=== PATIENT | female | born 1940 | race American Indian/Alaskan Native ===

== ENCOUNTER 2016-11-28 14:58 | Outpatient (CLI) | payer MEDICARE, OTHER ==
--- NOTE | 2016-11-29 10:50 | XRay Report ---
LEFT HAND RADIOGRAPHS: INDICATION: Left hand pain. No known injury. On and off swelling to first digit. COMPARISON: None similar. FINDINGS: AP, lateral and oblique left hand radiographs demonstrate intact first metacarpal and overlying soft tissues, indicated symptomatic. However, moderate first MCP joint degenerative changes with joint space narrowing, slight adjacent sclerosis with few subchondral cysts and possible subluxation noted. Osteopenia/osteoporosis. Few other interphalangeal degenerative changes, greatest at the second DIP joint with narrowing and overhanging osteophytes with overlying soft tissue swelling/prominence also seen. Normal remainder bony articulation and appearance. Extrinsic ornament artifact overlies the distal forearm bones. CONCLUSION: No acute radiographic abnormality with osteoarthritic changes noted predominantly at the first MCP and second DIP joints, as detailed above. Please correlate. Thank you for the opportunity to participate in this patient's care.
== END 2016-11-28 14:59 | disposition home or self-care (01) ==
LOC: XRAY 14:58
PROVIDERS: ATTEND Internal Medicine
DX: M81.0 Age-related osteoporosis without current pathological fracture (principal); M85.842 Other specified disorders of bone density and structure, left hand; M25.742 Osteophyte, left hand

== ENCOUNTER 2018-02-24 09:25 | Outpatient (CLI) | payer MEDICARE, OTHER ==
--- NOTE | 2018-02-24 11:11 | Cat Scan Report ---
CT CHEST WITHOUT CONTRAST: HISTORY: Right upper lobe infiltrate. COMPARISON: 01/27/17. TECHNIQUE: Helical CT in 1.25mm intervals without IV contrast. Sagittal and coronal reformatted images. FINDINGS: Thyroid gland: Normal. Tracheobronchial tree: Normal. Esophagus: Normal. Heart: Normal. Pericardium: Normal. Mediastinum: No mediastinal mass or adenopathy. Lung Garcia: There are mild chronic interstitial changes in both lungs but no evidence for pneumonia. No mass or nodule. There is mild air trapping in the upper lung zones which might represent mild COPD. Pleural Spaces: Normal. Musculoskeletal: Normal. IMPRESSION: Mild chronic interstitial changes in both lungs. No evidence for infiltrate..
== END 2018-02-24 09:26 | disposition home or self-care (01) ==
LOC: CT 09:25
PROVIDERS: ATTEND Internal Medicine
DX: R91.8 Other nonspecific abnormal finding of lung field (principal)
CPT/HCPCS: 71250

== ENCOUNTER 2018-03-18 06:20 | Day surgery (SDC) | payer MEDICARE, OTHER ==
[2018-03-18] MEDS ORDERED: ECOTRIN PO ONE (06:56)
[2018-03-18] MEDS ORDERED: NACL 0.9% 500 ML 500 ML IV SCH (07:00)
[2018-03-18 07:39] LABS: Basophils % (Auto) 0.9 % (0.0-1.8); Eosinophils # (Auto) 0.2 K/mm3 (0.0-0.4); Hematocrit 33.3 % (30.3-42.9); Hemoglobin 11.1 gm/dl (10.1-14.3); Mean Corpuscular HGB Conc 33 % (30-34); Mean Corpuscular Hemoglobin 32 pg (28-32); Mean Corpuscular Volume 95 fl (79-97); Monocytes # (Auto) 0.5 K/mm3 (0.0-0.8); Monocytes % (Auto) 11.3 % (0.0-7.3); Platelet Count 214 K/mm3 (140-440); Red Cell Distribution Width 14.3 % (13.2-15.2)
[2018-03-18 07:48] LABS: INR 0.95 (0.87-1.13)
[2018-03-18] MEDS ORDERED: HEPARIN 10,000 UNITS/10 ML ONE (08:17)
[2018-03-18] MEDS ORDERED: HEPARIN/NS 5000 UNIT/500ML(CATH LAB) 1,000 ML IR ONE (08:17)
[2018-03-18 08:20] LABS: BUN/Creatinine Ratio 11; Blood Urea Nitrogen 8 mg/dL (7-17); Calcium 8.3 mg/dL (8.4-10.2); Hemolysis Index 4
[2018-03-18] MEDS ORDERED: K-DUR PO ONE (08:25)
[2018-03-18] MEDS ORDERED: K-DUR PO NR (08:29)
[2018-03-18] MEDS: VERSED ONE ×2 (08:52→09:04)
[2018-03-18] MEDS: SUBLIMAZE ONE ×2 (08:52→09:04)
[2018-03-18] MEDS: XYLOCAINE 2% INFILTRATI ONE ×2 (08:52→09:05)
--- NOTE | 2018-03-18 09:37 | Short Stay Summary ---
Short Stay Documentation Date of service: 03/18/18 - History H&P: obtained from office - Allergies and Medications Current Medications: Allergies codeine phosphate [From Tylenol-Codeine #3] Allergy (Verified 11/14/14 07:59) Nausea Home Medications Medication Instructions Recorded Confirmed Last Taken Type Diazepam 5 mg PO DAILY PRN 11/14/14 03/18/18 03/16/18 History Oxycodone HCl/Acetaminophen 1 each PO Q6HR PRN 11/14/14 03/18/18 03/16/18 History [Percocet 10/325 mg] PARoxetine CR (NF) [Paxil (Nf)] 25 mg PO QAM 11/14/14 03/18/18 03/17/18 History Vit D3 & K/Berberine HCl/Hops 1 tab PO DAILY 10/02/16 03/18/18 03/17/18 History Vit E AC/Vit K1/Safflower Oil 1 tab PO DAILY 10/02/16 03/18/18 03/17/18 History Acetaminophen [Tylenol Extra 500 mg PO DAILY PRN 03/18/18 03/18/18 03/17/18 History Strength] Furosemide [Lasix TAB] 20 mg PO DAILY 03/18/18 03/18/18 1 Month Ago History ~02/15/18 Macitentan (Nf) [Opsumit (Nf)] 10 mg PO DAILY 03/18/18 03/18/18 03/17/18 History Active Medications Sodium Chloride (Nacl 0.9% 500 Ml) 500 mls @ 50 mls/hr IV DIRECT JAKE Stop: 03/18/18 16:59 Last Admin: 03/18/18 08:06 Dose: 50 mls/hr - Physical exam General appearance: no acute distress Integumentary: no rash HEENT: Atraumatic Lungs: Clear to auscultation Breasts: deferred Heart: Regular rate Gastrointestinal: normal Female Genitourinary: deferred Rectal Exam: deferred Extremities: no ischemia Neurological: Normal gait - Brief post op/procedure progress note Date of procedure: 03/18/18 Pre-op diagnosis: Shortness of breath, pulmonary hypertension Post-op diagnosis: same Procedure: RHC Anesthesia: MAC Findings: See report Surgeon: MALICK FRIAS Estimated blood loss: none Pathology: none Condition: stable - Hospital course Hospital course: Uneventful - Disposition Condition at discharge: Good Disposition: DC-01 TO HOME OR SELFCARE Short Stay Discharge Plan Activity: advance as tolerated, no driving until cleared by PCP (foe 24 hours) Weight Bearing Status: Non-Weight Bearing (for 2 days) Diet: low fat, low cholesterol, low salt Wound: keep clean and dry Follow up with: ABDIAS DAVIS MD [Primary Care Provider] - 7 Days Prescriptions: Furosemide [Lasix TAB] 20 mg PO Q12H #60 tablet Potassium Chloride [Klor-Con 10] 10 meq PO DAILY 3 Days #30 tablet.er
--- NOTE | 2018-03-18 09:53 | Cardiac Catherization Report ---
INDICATION: Worsening shortness of breath. ORDERING PHYSICIAN: Mikael Oliveira MD PROCEDURE PERFORMED: Right heart catheterization with hemodynamic measurement and oxygen saturation run. DESCRIPTION OF PROCEDURE: 1.After obtaining the consent, the patient was draped using sterile technique. 2.A 2% lidocaine was injected into the right groin. 3.Using micropuncture technique an 8-Sudanese vascular sheath was inserted into the right common femoral vein. 4.A 7-1/2-Sudanese [place]-Jcarlos catheter was used to measure right-sided hemodynamics and performed oxygen saturation run. 5.No complications occurred during the procedure. 6.Hemostasis was achieved at the end of the procedure using manual pressure. SPECIMEN REMOVED: None. ESTIMATED BLOOD LOSS: Minimal. FINDINGS: HEMODYNAMICS: 1. Mean pulmonary capillary wedge pressure was 21 mmHg. 2. Mean pulmonary artery pressure was 35 mmHg. The pulmonary artery systolic pressure was 53 mmHg and the pulmonary end-diastolic pressure was 24 mmHg. 3. The right ventricular systolic pressure was 67 mmHg and the right ventricular end-diastolic pressure was 19 mmHg. 4. The mean right arterial pressure was 15 mmHg. 5. The Jayesh cardiac output was 4.41 L per minute. 6. The Jayesh cardiac index is 2.67 liters per minute per meter squared. 7. The calculated transpulmonary gradient is 14 mmHg. 8. The calculated pulmonary vascular resistance is 3.17 [place] units. 9. The PA saturation was 60%. 10. The right ventricular saturation was 61%. 11. The right atrial saturation was 62%. 12. The aortic saturation was 95%. 13. The pulmonary artery saturation was 60%. IMPRESSION: 1. Moderate pulmonary hypertension. The mean PA pressure is 35 mmHg. This is slightly improved from the previous mean PA pressure of 37 mmHg measured in 09/2016. 2. The transpulmonary gradient is 14 mmHg with a pulmonary vascular resistance of 3.17 [place] units. This compared to a transpulmonary gradient of 27 mmHg and the pulmonary vascular resistance of 8.6 [place] units back in 09/2016. There is evidence of elevated left and right-sided filling pressures suggesting fluid overload. 3. There is evidence of normal cardiac output with improved in the cardiac index from 1.9-2.67 liters per minute per meter square. RECOMMENDATIONS: 1.Continue current management. 2.Intensify diuresis. 3.Overall, the pulmonary pressures look improved compared to the study performed in 09/2016. JOB# [id number] WESLEY/RIZWAN
[2018-03-18 11:31] VITALS: BP 127/61
== END 2018-03-18 12:00 | disposition home or self-care (01) ==
LOC: CATHLABREC 06:20
PROVIDERS: ATTEND Internal Medicine
DX: I27.20 Pulmonary hypertension, unspecified (principal); J43.9 Emphysema, unspecified; M19.90 Unspecified osteoarthritis, unspecified site; I25.10 Atherosclerotic heart disease of native coronary artery without angina pectoris; I10 Essential (primary) hypertension; K21.9 Gastro-esophageal reflux disease without esophagitis; Z90.710 Acquired absence of both cervix and uterus; Z79.899 Other long term (current) drug therapy
CPT/HCPCS: 36415; 80048; 85025; 85610; 93005; 93010; 93451; 99152; J1644; J2250; J3010; J7040

== ENCOUNTER 2018-04-13 11:08 | Outpatient (CLI) | payer MEDICARE, OTHER ==
--- NOTE | 2018-04-13 15:20 | XRay Report ---
Thoracic spine: Pain. The vertebral height, alignment, and interspaces appear generally preserved. The bones are relatively well-mineralized for stated age. No swelling noted. Impression: Unremarkable exam for stated age.
== END 2018-04-13 11:09 | disposition home or self-care (01) ==
LOC: XRAY 11:08
PROVIDERS: ATTEND Physical Medicine & Rehabilitation
DX: M54.6 Pain in thoracic spine (principal); J43.9 Emphysema, unspecified; K21.9 Gastro-esophageal reflux disease without esophagitis; Z87.891 Personal history of nicotine dependence
CPT/HCPCS: 72070

== ENCOUNTER 2019-05-05 09:58 | Inpatient (IN) | payer MEDICARE, OTHER ==
[2019-05-05] MEDS ORDERED: DUONEB *Not for PRN Use IH ONE (10:30)
[2019-05-05] MEDS ORDERED: LEVAQUIN 750MG/150ML 750 MG/150 ML BAG IV ONE (10:30)
[2019-05-05] MEDS ORDERED: NACL 0.9% 1000 ML IV ONE (10:38)
--- NOTE | 2019-05-05 10:44 | Emergency Department Report ---
ED General Adult HPI - General Chief complaint: Dyspnea/Respdistress Stated complaint: RESPIRATORY DISTRESS Time Seen by Provider: 05/05/19 10:15 Source: patient, EMS Mode of arrival: Stretcher Limitations: No Limitations - History of Present Illness Initial comments: The patient presents to the ED for a cough and fever x 3 days. The patient has a H/O COPD and is on home O2 at 2L via ncl. The patient denies Chest or abdominal pain. The patient complains of difficulty breathing when lying flat. -: Gradual Severity scale (0 -10): 0 Improves with: none Worsens with: none Associated Symptoms: denies other symptoms Treatments Prior to Arrival: none - Related Data Home Medications Medication Instructions Recorded Confirmed Last Taken Macitentan (Nf) [Opsumit (Nf)] 10 mg PO DAILY 03/18/18 05/05/19 05/05/19 PARoxetine CR (NF) [Paxil (Nf)] 25 mg PO QAM 01/06/19 05/05/19 05/05/19 Allergies Allergy/AdvReac Type Severity Reaction Status Date / Time codeine phosphate Allergy Nausea Verified 11/14/14 07:59 [From Tylenol-Codeine #3] ED Review of Systems ROS: Stated complaint: RESPIRATORY DISTRESS Other details as noted in HPI Constitutional: denies: chills, fever Eyes: denies: eye pain, eye discharge, vision change ENT: denies: ear pain, throat pain Respiratory: cough. denies: shortness of breath, wheezing Cardiovascular: denies: chest pain, palpitations Endocrine: no symptoms reported Gastrointestinal: denies: abdominal pain, nausea, diarrhea Genitourinary: denies: urgency, dysuria, discharge Musculoskeletal: denies: back pain, joint swelling, arthralgia Skin: denies: rash, lesions Neurological: denies: headache, weakness, paresthesias Psychiatric: denies: anxiety, depression Hematological/Lymphatic: denies: easy bleeding, easy bruising ED Past Medical Hx - Past Medical History Previous Medical History?: Yes Hx Hypertension: Yes Hx GERD: Yes Hx Arthritis: Yes Hx COPD: Yes (Home O2 @ 2 L) Additional medical history: aniexty,chronic pain - Surgical History Past Surgical History?: Yes Additional Surgical History: partial hysterectom - Social History Smoking Status: Former Smoker Substance Use Type: None - Medications Home Medications: Home Medications Medication Instructions Recorded Confirmed Last Taken Type Macitentan (Nf) [Opsumit (Nf)] 10 mg PO DAILY 03/18/18 05/05/19 05/05/19 History PARoxetine CR (NF) [Paxil (Nf)] 25 mg PO QAM 01/06/19 05/05/19 05/05/19 History ED Physical Exam - General Limitations: No Limitations General appearance: alert, in no apparent distress - Head Head exam: Present: atraumatic, normocephalic - Eye Eye exam: Present: normal appearance - ENT ENT exam: Present: mucous membranes moist - Neck Neck exam: Present: normal inspection - Respiratory Respiratory exam: Present: normal lung sounds bilaterally, wheezes, rales. Absent: respiratory distress - Cardiovascular Cardiovascular Exam: Present: regular rate, normal rhythm. Absent: systolic murmur, diastolic murmur, rubs, gallop - GI/Abdominal GI/Abdominal exam: Present: soft, normal bowel sounds. Absent: distended, tenderness - Extremities Exam Extremities exam: Present: normal inspection - Back Exam Back exam: Present: normal inspection - Neurological Exam Neurological exam: Present: alert, oriented X3, CN II-XII intact. Absent: motor sensory deficit - Psychiatric Psychiatric exam: Present: normal affect, normal mood - Skin Skin exam: Present: warm, dry, intact, normal color. Absent: rash ED Course Vital Signs 05/05/19 05/05/19 05/05/19 10:15 10:47 10:54 Temperature 98.9 F Pulse Rate 71 Pulse Rate [ 92 H 885 H Anterior Bilateral] Respiratory 20 Rate Respiratory 13 26 H Rate [Anterior Bilateral] Blood Pressure 130/82 Blood Pressure [Left] O2 Sat by Pulse 98 Oximetry 05/05/19 12:42 Temperature Pulse Rate 98 H Pulse Rate [ Anterior Bilateral] Respiratory 16 Rate Respiratory Rate [Anterior Bilateral] Blood Pressure Blood Pressure 138/69 [Left] O2 Sat by Pulse 98 Oximetry ED Medical Decision Making - Lab Data Result diagrams: 05/05/19 11:10 05/05/19 11:10 Lab Results 05/05/19 05/05/19 05/05/19 Range/Units 11:00 11:10 11:10 WBC (4.5-11.0) K/mm3 RBC (3.65-5.03) M/mm3 Hgb (10.1-14.3) gm/dl Hct (30.3-42.9) % MCV (79-97) fl MCH (28-32) pg MCHC (30-34) % RDW (13.2-15.2) % Plt Count (140-440) K/mm3 Lymph % (Auto) (13.4-35.0) % Morrison % (Auto) (0.0-7.3) % Eos % (Auto) (0.0-4.3) % Baso % (Auto) (0.0-1.8) % Lymph # (1.2-5.4) K/mm3 Morrison # (0.0-0.8) K/mm3 Eos # (0.0-0.4) K/mm3 Baso # (0.0-0.1) K/mm3 Seg Neutrophils % (40.0-70.0) % Seg Neutrophils # (1.8-7.7) K/mm3 APTT (24.2-36.6) Sec. POC ABG pH 7.454 H (7.35-7.45) POC ABG pCO2 36.0 (35-45) POC ABG pO2 66 L (80-105) POC ABG HCO3 25.2 (22-26 mml/L) POC ABG Total CO2 26 (23-27mmol/L) POC ABG O2 Sat 94 POC ABG Base Excess 1 ((-2) - (+3)mmol/L) FiO2 28 % Sodium 141 (137-145) mmol/L Potassium 3.4 L (3.6-5.0) mmol/L Chloride 102.9 (98-107) mmol/L Carbon Dioxide 26 (22-30) mmol/L Anion Gap 16 mmol/L BUN 8 (7-17) mg/dL Creatinine 1.1 (0.7-1.2) mg/dL Estimated GFR 58 ml/min BUN/Creatinine Ratio 7 % Glucose 97 (65-100) mg/dL Lactic Acid 1.90 (0.7-2.0) mmol/L Calcium 8.0 L (8.4-10.2) mg/dL Total Bilirubin 0.60 (0.1-1.2) mg/dL AST 28 (5-40) units/L ALT 12 (7-56) units/L Alkaline Phosphatase 55 (35-129) units/L NT-Pro-B Natriuret Pep (0-900) pg/mL Total Protein 6.8 (6.3-8.2) g/dL Albumin 3.5 L (3.9-5) g/dL Albumin/Globulin Ratio 1.1 % 05/05/19 05/05/19 05/05/19 Range/Units 11:10 11:10 11:10 WBC 5.3 (4.5-11.0) K/mm3 RBC 3.53 L (3.65-5.03) M/mm3 Hgb 11.2 (10.1-14.3) gm/dl Hct 33.1 (30.3-42.9) % MCV 94 (79-97) fl MCH 32 (28-32) pg MCHC 34 (30-34) % RDW 15.0 (13.2-15.2) % Plt Count 170 (140-440) K/mm3 Lymph % (Auto) 21.5 (13.4-35.0) % Morrison % (Auto) 15.5 H (0.0-7.3) % Eos % (Auto) 3.2 (0.0-4.3) % Baso % (Auto) 0.7 (0.0-1.8) % Lymph # 1.1 L (1.2-5.4) K/mm3 Morrison # 0.8 (0.0-0.8) K/mm3 Eos # 0.2 (0.0-0.4) K/mm3 Baso # 0.0 (0.0-0.1) K/mm3 Seg Neutrophils % 59.1 (40.0-70.0) % Seg Neutrophils # 3.1 (1.8-7.7) K/mm3 APTT 30.3 (24.2-36.6) Sec. POC ABG pH (7.35-7.45) POC ABG pCO2 (35-45) POC ABG pO2 (80-105) POC ABG HCO3 (22-26 mml/L) POC ABG Total CO2 (23-27mmol/L) POC ABG O2 Sat POC ABG Base Excess ((-2) - (+3)mmol/L) FiO2 % Sodium (137-145) mmol/L Potassium (3.6-5.0) mmol/L Chloride (98-107) mmol/L Carbon Dioxide (22-30) mmol/L Anion Gap mmol/L BUN (7-17) mg/dL Creatinine (0.7-1.2) mg/dL Estimated GFR ml/min BUN/Creatinine Ratio % Glucose (65-100) mg/dL Lactic Acid (0.7-2.0) mmol/L Calcium (8.4-10.2) mg/dL Total Bilirubin (0.1-1.2) mg/dL AST (5-40) units/L ALT (7-56) units/L Alkaline Phosphatase (35-129) units/L NT-Pro-B Natriuret Pep 3759 H (0-900) pg/mL Total Protein (6.3-8.2) g/dL Albumin (3.9-5) g/dL Albumin/Globulin Ratio % - EKG Data -: EKG Interpreted by Tn EKG shows normal: sinus rhythm Rate: normal - EKG Data Interpretation: LVH - Radiology Data Radiology results: report reviewed - Medical Decision Making CT of the chest was done due to the wide mediastinum Patient refused a CT scan Patient given 40 mg IV Lasix Patient states that she stopped taking the Lasix is on her own because she did not want to use the bathroom all the time Critical Care Time: Yes Critical care time in (mins) excluding proc time.: 35 Critical care attestation.: If time is entered above; I have spent that time in minutes in the direct care of this critically ill patient, excluding procedure time. ED Disposition Clinical Impression: CHF (congestive heart failure) Disposition: OP ADMIT IP TO THIS HOSP Is pt being admited?: No Does the pt Need Aspirin: No Condition: Fair Referrals: PRIMARY CARE, [Primary Care Provider] - 3-5 Days
--- NOTE | 2019-05-05 10:44 | XRay Report ---
AP CHEST: HISTORY: Dyspnea Mild cardiomegaly and mild pulmonary venous congestion are identified which appear slightly increased since 01/06/19. Trace right pleural effusion is suspected. No evidence for consolidation or pneumothorax. The bony structures are demineralized but grossly intact. Right rotator cuff repair changes are noted. IMPRESSION: Mild CHF.
[2019-05-05 11:25] LABS: Basophils % (Auto) 0.7 % (0.0-1.8); Eosinophils # (Auto) 0.2 K/mm3 (0.0-0.4); Eosinophils % (Auto) 3.2 % (0.0-4.3); Hematocrit 33.1 % (30.3-42.9); Hemoglobin 11.2 gm/dl (10.1-14.3); Lymphocytes # (Auto) 1.1 K/mm3 (1.2-5.4); Lymphocytes % (Auto) 21.5 % (13.4-35.0); Mean Corpuscular HGB Conc 34 % (30-34); Mean Corpuscular Volume 94 fl (79-97); Monocytes # (Auto) 0.8 K/mm3 (0.0-0.8); Monocytes % (Auto) 15.5 % (0.0-7.3); Platelet Count 170 K/mm3 (140-440); Red Blood Count 3.53 M/mm3 (3.65-5.03)
[2019-05-05 11:38] LABS: Albumin 3.5 g/dL (3.9-5)
[2019-05-05] MEDS ORDERED: LASIX IV ONE (13:13)
[2019-05-05] MEDS ORDERED: LASIX ONE (13:14)
--- NOTE | 2019-05-05 14:01 | History and Physical Report ---
History of Present Illness Chief complaint: Im short of breath History of present illness: 78 YO Female with HTN, GERD, OA, COPD, Chronic Respiratory Failure on 2L Home Oxygen via NC presents to ED for evaluation. Pt states that she has experienced shortness of breath and nonproductive cough over the past 3 days. Pt states that his symptoms were not relieved with nebulizer therapy. Pt acknowledges subjective fever, Orthopnea/PND as well as decreased exercise tolerance. EMS notified, and upon arrival the patient was found to be in distress. Pt transported to [facility]. Pt seen and evaluated in ED and found to have symptoms consistent with CHF Decompensation complicated by Acute Hypoxemic Respiratory Failure. Pt admitted to telemetry and initiated on CHF protocol. Cardiology consulted in ED. Pt denies fever, chills, CP, Palpitations, NVD, skin rash, unilateral leg swelling, calf pain, hemoptysis, or recent ill contacts. Past History Past Medical History: arthritis, COPD, GERD, hypertension, other (Chronic Respiratory Failure) Past Surgical History: hysterectomy Social history: . denies: smoking, alcohol abuse, prescription drug abuse Family history: hypertension Medications and Allergies Allergies Allergy/AdvReac Type Severity Reaction Status Date / Time codeine phosphate Allergy Nausea Verified 11/14/14 07:59 [From Tylenol-Codeine #3] Home Medications Medication Instructions Recorded Confirmed Last Taken Type Macitentan (Nf) [Opsumit (Nf)] 10 mg PO DAILY 03/18/18 05/05/19 05/05/19 History PARoxetine CR (NF) [Paxil (Nf)] 25 mg PO QAM 01/06/19 05/05/19 05/05/19 History Review of Systems Constitutional: fever, no weight loss, no weight gain, no chills, no sweats Ears, nose, mouth and throat: no ear pain, no ear discharge, no tinnitis, no decreased hearing, no nose pain, no nasal congestion Breasts: no change in shape, no swelling, no mass Cardiovascular: shortness of breath, dyspnea on exertion, paroxysmal nocturnal dyspnea, decreased exercise tolerance, no chest pain, no orthopnea, no palpitations, no rapid/irregular heart beat, no edema Respiratory: cough, cough with sputum Gastrointestinal: no abdominal pain, no nausea, no vomiting, no diarrhea Genitourinary Female: no pelvic pain, no flank pain, no menorrhagia, no dysuria, no urinary frequency, no urgency Rectal: no pain, no incontinence, no bleeding Musculoskeletal: no neck stiffness, no neck pain, no shooting arm pain, no arm numbness/tingling, no low back pain Integumentary: no rash, no pruritis, no redness, no sores, no wounds, no jaundi ce Neurological: no paralysis, no weakness, no parathesias, no numbness, no tingling Psychiatric: no anxiety, no memory loss, no change in sleep habits, no sleep disturbances, no insomnia, no hypersomnia Endocrine: no cold intolerance, no heat intolerance, no polyphagia, no excessive thirst, no polydipsia, no polyuria Hematologic/Lymphatic: no easy bruising, no easy bleeding, no lymphadenopathy, n o lymphedema Allergic/Immunologic: no urticaria, no allergic rhinitis, no wheezing, no persistent infections, no anaphylaxis Exam - Constitutional Vitals: Temp Pulse Resp BP Pulse Ox 98.9 F 98 H 16 138/69 98 05/05/19 10:15 05/05/19 12:42 05/05/19 12:42 05/05/19 12:42 05/05/19 12:42 General appearance: Present: mild distress - EENT Eyes: Present: PERRL ENT: hearing intact, clear oral mucosa - Neck Neck: Present: supple, normal ROM - Respiratory Respiratory effort: normal Respiratory: bilateral: diminished, rhonchi - Cardiovascular Heart Sounds: Present: S1 & S2. Absent: rub, click - Extremities Extremities: pulses symmetrical, No edema Extremity abnormal: edema Peripheral Pulses: within normal limits - Abdominal General gastrointestinal: Present: soft, non-tender, non-distended, normal bowel sounds Female genitourinary: Present: normal - Integumentary Integumentary: Present: clear, warm, dry - Musculoskeletal Musculoskeletal: gait normal, strength equal bilaterally - Psychiatric Psychiatric: appropriate mood/affect, intact judgment & insight - Neurologic Neurologic: CNII-XII intact, moves all extremities Results - Labs CBC & Chem 7: 05/05/19 11:10 05/05/19 11:10 Labs: Abnormal lab results 05/05/19 05/05/19 05/05/19 Range/Units 11:00 11:10 11:10 RBC 3.53 L (3.65-5.03) M/mm3 Story % (Auto) 15.5 H (0.0-7.3) % Lymph # 1.1 L (1.2-5.4) K/mm3 POC ABG pH 7.454 H (7.35-7.45) POC ABG pO2 66 L (80-105) Potassium 3.4 L (3.6-5.0) mmol/L Calcium 8.0 L (8.4-10.2) mg/dL NT-Pro-B Natriuret Pep (0-900) pg/mL Albumin 3.5 L (3.9-5) g/dL 05/05/19 Range/Units 11:10 RBC (3.65-5.03) M/mm3 Story % (Auto) (0.0-7.3) % Lymph # (1.2-5.4) K/mm3 POC ABG pH (7.35-7.45) POC ABG pO2 (80-105) Potassium (3.6-5.0) mmol/L Calcium (8.4-10.2) mg/dL NT-Pro-B Natriuret Pep 3759 H (0-900) pg/mL Albumin (3.9-5) g/dL Assessment and Plan - Patient Problems (1) CHF (congestive heart failure) Current Visit: Yes Status: Suspected Qualifiers: Heart failure chronicity: acute on chronic Plan to address problem: Admit to telemetry, Echo, cardiology consulted, thyroid panel, magnesium level, chest x ray, strict I/O, daily weight, bnp, monitor uop q shift. (2) Respiratory failure Current Visit: Yes Status: Acute Qualifiers: Chronicity: acute on chronic Plan to address problem: Supplemental oxygen, chest X ray, pulse oximetry, NIPPV as clinically inidicated. (3) Pulmonary hypertension Current Visit: Yes Status: Acute Plan to address problem: Echo, supportive care, continue Opsumit for pulmonary vasodilation, (4) HTN (hypertension) Current Visit: Yes Status: Acute Qualifiers: Hypertension type: essential hypertension Qualified Code(s): I10 - Essential (primary) hypertension Plan to address problem: monitor BP q shift, continue medical management. (5) GERD (gastroesophageal reflux disease) Current Visit: Yes Status: Acute Qualifiers: Esophagitis presence: without esophagitis Qualified Code(s): K21.9 - Gastro-esophageal reflux disease without esophagitis Plan to address problem: PPI therapy, supportive care. (6) Arthritis Current Visit: Yes Status: Acute Plan to address problem: pain control, supportive care. (7) DVT prophylaxis Current Visit: Yes Status: Acute Plan to address problem: SCD to BLE while in bed,
[2019-05-05 14:21] LABS: Bacteria,Urine 1+ /HPF (Negative); Bilirubin,Urine NEG (Negative); Blood,Urine SM (Negative); Color,Urine Colorless (Yellow); Mucus,Urine FEW /HPF; Protein,Urine <15 mg/dL mg/dL (Negative); Urobilinogen,Urine < 2.0 mg/dL (<2.0)
[2019-05-05 14:37] LABS: WBC,Urine < 1.0 /HPF (0.0-6.0)
[2019-05-05] MEDS ORDERED: PROVENTIL IH PRN (15:17)
[2019-05-05] MEDS ORDERED: ZOFRAN IV PRN (15:17)
[2019-05-05] MEDS ORDERED: SODIUM CHLORIDE FLUSH SYRINGE 10 ML IV PRN (15:17)
[2019-05-05 16:35] LABS: Free T4 (Free Thyroxine) 0.85 ng/dL (0.76-1.46)
[2019-05-05] MEDS: LASIX IV SCH (17:50)
[2019-05-05] MEDS: HYDROMET PO PRN (21:54)
[2019-05-05] MEDS: SODIUM CHLORIDE FLUSH SYRINGE 10 ML IV SCH (21:55)
[2019-05-06 06:39] LABS: BUN/Creatinine Ratio 10; Blood Urea Nitrogen 10 mg/dL (7-17); Calcium 8.2 mg/dL (8.4-10.2); Hemolysis Index 14
[2019-05-06] MEDS: LASIX IV SCH (06:44)
[2019-05-06] MEDS: HYDROMET PO PRN ×3 (07:36→21:55)
[2019-05-06] MEDS: SODIUM CHLORIDE FLUSH SYRINGE 10 ML IV SCH ×2 (09:30→21:55)
[2019-05-06] MEDS ORDERED: PAROXETINE 25 MG PO SCH (10:00)
[2019-05-06] MEDS ORDERED: MACITENTAN 10 MG PO SCH (10:00)
--- NOTE | 2019-05-06 11:49 | Consultation ---
History of Present Illness Consult date: 05/06/19 Consult reason: congestive heart failure History of present illness: Patient is a 78-year old woman with chronic lung disease, COPD, on home oxygen therapy. She has had extensive invasive cardiac evaluation, with 3 recent cardiac catheterizations in 2013, 2015 and most recently a right heart catheterization in February 2018. She has been documented with mild obstructive atherosclerosis, normal left ventricle systolic function with ejection fraction 60-65%, and moderate pulmonary hypertension consistent with her COPD. Patient presents to the hospital with cough, shortness of breath and positional chest pain. Chest x-ray reports cardiomegaly with mild interstitial lung disease. EKG was sinus bradycardia, otherwise normal. Cardiac consultation has been requested. Past History Past Medical History: arthritis, COPD, GERD, hypertension, other (Chronic Respiratory Failure) Past Surgical History: hysterectomy Social history: . denies: smoking, alcohol abuse, prescription drug abuse Family history: hypertension Medications and Allergies Allergies Allergy/AdvReac Type Severity Reaction Status Date / Time codeine phosphate Allergy Nausea Verified 11/14/14 07:59 [From Tylenol-Codeine #3] Home Medications Medication Instructions Recorded Confirmed Last Taken Type Macitentan (Nf) [Opsumit (Nf)] 10 mg PO DAILY 03/18/18 05/05/19 05/05/19 History PARoxetine CR (NF) [Paxil (Nf)] 25 mg PO QAM 01/06/19 05/05/19 05/05/19 History Active Meds: Active Medications Acetaminophen (Tylenol) 650 mg PO Q4H PRN PRN Reason: Pain MILD(1-3)/Fever >100.5/MERRITT Albuterol (Proventil) 2.5 mg IH Q4HRT PRN PRN Reason: Shortness Of Breath Furosemide (Lasix) 40 mg IV BID@0600,1800 JAKE Last Admin: 05/06/19 06:44 Dose: 40 mg Documented by: Hydrocodone Bit/Homatropine Methylb (Hydromet) 10 ml PO Q6H PRN PRN Reason: Cough Last Admin: 05/06/19 07:36 Dose: 10 ml Documented by: Miscellaneous Medication (Macitentan (Nf)) 10 mg PO DAILY JAKE Miscellaneous Medication (Paroxetine Cr (Nf)) 25 mg PO QAM [facility] Ondansetron HCl (Zofran) 4 mg IV Q8H PRN PRN Reason: Nausea And Vomiting Sodium Chloride (Sodium Chloride Flush Syringe 10 Ml) 10 ml IV BID JAKE Last Admin: 05/06/19 09:30 Dose: 10 ml Documented by: Sodium Chloride (Sodium Chloride Flush Syringe 10 Ml) 10 ml IV PRN PRN PRN Reason: LINE FLUSH Last Admin: 05/06/19 06:44 Dose: 10 ml Documented by: Physical Examination Vital Signs Temp Pulse Resp BP Pulse Ox 98.9 F 71 20 130/82 98 05/05/19 10:15 05/05/19 10:15 05/05/19 10:15 05/05/19 10:15 05/05/19 10:15 General appearance: no acute distress HEENT: Positive: PERRL Cardiac: Positive: Reg Rate and Rhythm, Systolic Murmur Lungs: Positive: Decreased Breath Sounds Neuro: Positive: Grossly Intact Extremities: Absent: edema Results 05/05/19 11:10 05/06/19 05:11 Coagulation 05/05/19 Range/Units 11:10 APTT 30.3 (24.2-36.6) Sec. Comprehensive Metabolic Panel 05/06/19 Range/Units 05:11 Sodium 141 (137-145) mmol/L Potassium 3.6 (3.6-5.0) mmol/L Chloride 100.3 (98-107) mmol/L Carbon Dioxide 29 (22-30) mmol/L BUN 10 (7-17) mg/dL Creatinine 1.0 (0.7-1.2) mg/dL Glucose 98 (65-100) mg/dL Calcium 8.2 L (8.4-10.2) mg/dL Assessment and Plan COPD exacerbation Pulmonary Htn, moderate on Opsumit as an outpatient Pulmonary Fibrosis Hypertension Normal thallium stress test 12/2018. [facility] 2014 documents mild obstructive atherosclerosis, normal left ventricle systolic function with ejection fraction 60-65% [facility] 2018documents moderate pulmonary hypertension, mean PA pressure of 35 mmHg. Conservative cardiac management. Recommend pulmonary evaluation and management of lung disease, COPD exacerbation.
--- NOTE | 2019-05-06 12:52 | Progress Note ---
Assessment and Plan Assessment and plan: Acute on chronic hypoxemic respiratory failure. Continue O2 to maintain sats greater than 92%. Etiology secondary to pulmonary hypertension and COPD exacerbation. Pulmonary consultation. Moderate pulmonary hypertension. Acute COPD exacerbation. Continue breathing treatments. We'll add systemic st eroids. Diastolic heart failure. Compensated. Cardiology feels patient does not have acute decompensation. Patient with elevated BNP. Lasix IV twice a day discontinued. Hypertension. Resume antihypertensive medications. GERD. Continue PPI. History Interval history: Patient still reports shortness of breath slightly improved however. Hospitalist Physical - Constitutional Vitals: Temp Pulse Resp BP Pulse Ox 98.0 F 76 18 125/76 96 05/06/19 12:26 05/06/19 12:26 05/06/19 12:26 05/06/19 12:26 05/06/19 12:26 General appearance: Present: no acute distress - EENT Eyes: Present: PERRL, EOM intact ENT: hearing intact, clear oral mucosa, dentition normal - Neck Neck: Present: supple, normal ROM - Respiratory Respiratory effort: normal Respiratory: bilateral: CTA - Cardiovascular Rhythm: regular Heart Sounds: Present: S1 & S2. Absent: gallop, rub - Extremities Extremities: no ischemia, No edema, Full ROM - Abdominal General gastrointestinal: soft, non-tender, non-distended, normal bowel sounds - Integumentary Integumentary: Present: clear, warm, dry - Neurologic Neurologic: CNII-XII intact, moves all extremities Results - Labs CBC & Chem 7: 05/05/19 11:10 05/06/19 05:11 Labs: Laboratory Last Values WBC 5.3 K/mm3 (4.5-11.0) 05/05/19 11:10 RBC 3.53 M/mm3 (3.65-5.03) L 05/05/19 11:10 Hgb 11.2 gm/dl (10.1-14.3) 05/05/19 11:10 Hct 33.1 % (30.3-42.9) 05/05/19 11:10 MCV 94 fl (79-97) 05/05/19 11:10 MCH 32 pg (28-32) 05/05/19 11:10 MCHC 34 % (30-34) 05/05/19 11:10 RDW 15.0 % (13.2-15.2) 05/05/19 11:10 Plt Count 170 K/mm3 (140-440) 05/05/19 11:10 Lymph % (Auto) 21.5 % (13.4-35.0) 05/05/19 11:10 [place] % (Auto) 15.5 % (0.0-7.3) H 05/05/19 11:10 Eos % (Auto) 3.2 % (0.0-4.3) 05/05/19 11:10 Baso % (Auto) 0.7 % (0.0-1.8) 05/05/19 11:10 Lymph # 1.1 K/mm3 (1.2-5.4) L 05/05/19 11:10 [place] # 0.8 K/mm3 (0.0-0.8) 05/05/19 11:10 Eos # 0.2 K/mm3 (0.0-0.4) 05/05/19 11:10 Baso # 0.0 K/mm3 (0.0-0.1) 05/05/19 11:10 Seg Neutrophils % 59.1 % (40.0-70.0) 05/05/19 11:10 Seg Neutrophils # 3.1 K/mm3 (1.8-7.7) 05/05/19 11:10 APTT 30.3 Sec. (24.2-36.6) 05/05/19 11:10 POC ABG pH 7.454 (7.35-7.45) H 05/05/19 11:00 POC ABG pCO2 36.0 (35-45) 05/05/19 11:00 POC ABG pO2 66 (80-105) L 05/05/19 11:00 POC ABG HCO3 25.2 (22-26 mml/L) 05/05/19 11:00 POC ABG Total CO2 26 (23-27mmol/L) 05/05/19 11:00 POC ABG O2 Sat 94 05/05/19 11:00 POC ABG Base Excess 1 ((-2) - (+3)mmol/L) 05/05/19 11:00 28 % 05/05/19 11:00 Sodium 141 mmol/L (137-145) 05/06/19 05:11 Potassium 3.6 mmol/L (3.6-5.0) 05/06/19 05:11 Chloride 100.3 mmol/L (98-107) 05/06/19 05:11 Carbon Dioxide 29 mmol/L (22-30) 05/06/19 05:11 15 mmol/L 05/06/19 05:11 BUN 10 mg/dL (7-17) 05/06/19 05:11 1.0 mg/dL (0.7-1.2) 05/06/19 05:11 Estimated GFR > 60 ml/min 05/06/19 05:11 10 % 05/06/19 05:11 Glucose 98 mg/dL (65-100) 05/06/19 05:11 Lactic Acid 1.90 mmol/L (0.7-2.0) 05/05/19 11:10 Calcium 8.2 mg/dL (8.4-10.2) L 05/06/19 05:11 Magnesium 1.70 mg/dL (1.7-2.3) 05/05/19 15:41 0.60 mg/dL (0.1-1.2) 05/05/19 11:10 AST 28 units/L (5-40) 05/05/19 11:10 ALT 12 units/L (7-56) 05/05/19 11:10 55 units/L (35-129) 05/05/19 11:10 NT-Pro-B Natriuret Pep 3759 pg/mL (0-900) H 05/05/19 11:10 6.8 g/dL (6.3-8.2) 05/05/19 11:10 3.5 g/dL (3.9-5) L 05/05/19 11:10 1.1 % 05/05/19 11:10 TSH 0.564 mlU/mL (0.270-4.200) 05/05/19 15:41 Free T4 0.85 ng/dL (0.76-1.46) 05/05/19 15:41 Colorless (Yellow) 05/05/19 13:43 Clear (Clear) 05/05/19 13:43 8.0 (5.0-7.0) H 05/05/19 13:43 Ur Specific [place] 1.004 (1.003-1.030) 05/05/19 13:43 <15 mg/dl mg/dL (Negative) 05/05/19 13:43 Neg mg/dL (Negative) 05/05/19 13:43 Neg mg/dL (Negative) 05/05/19 13:43 Sm (Negative) 05/05/19 13:43 Neg (Negative) 05/05/19 13:43 Neg (Negative) 05/05/19 13:43 < 2.0 mg/dL (<2.0) 05/05/19 13:43 Ur Leukocyte Esterase Neg (Negative) 05/05/19 13:43 < 1.0 /HPF (0.0-6.0) 05/05/19 13:43 1.0 /HPF (0.0-6.0) 05/05/19 13:43 U Epithel Cells (Auto) < 1.0 /HPF (0-13.0) 05/05/19 13:43 1+ /HPF (Negative) 05/05/19 13:43 Few /HPF 05/05/19 13:43 Active Medications - Current Medications Current Medications: Generic Name Dose Route Start Last Admin Trade Name Freq PRN Reason Stop Dose Admin Acetaminophen 650 mg 05/05/19 15:17 Tylenol PO Q4H PRN Pain MILD(1-3)/Fever >100.5/MERRITT Albuterol 2.5 mg 05/05/19 15:17 Proventil IH Q4HRT PRN Shortness Of Breath Furosemide 40 mg 05/05/19 18:00 05/06/19 06:44 Lasix IV 40 mg BID@0600,1800 JAKE Administration Hydrocodone Bit/Homatropine Methylb 10 ml 05/05/19 19:37 05/06/19 07:36 Hydromet PO 10 ml Q6H PRN Administration Cough Miscellaneous Medication 10 mg 05/06/19 10:00 Macitentan (Nf) PO DAILY JAKE Miscellaneous Medication 25 mg 05/06/19 10:00 Paroxetine Cr (Nf) PO QAM JAKE Ondansetron HCl 4 mg 05/05/19 15:17 Zofran IV Q8H PRN Nausea And Vomiting Sodium Chloride 10 ml 05/05/19 22:00 05/06/19 09:30 Sodium Chloride Flush Syringe 10 Ml IV 10 ml BID JAKE Administration Sodium Chloride 10 ml 05/05/19 15:17 05/06/19 06:44 Sodium Chloride Flush Syringe 10 Ml IV 10 ml PRN PRN Administration LINE FLUSH
[2019-05-06] MEDS: SOLU-Medrol IV SCH (21:55)
[2019-05-07] MEDS: SOLU-Medrol IV SCH ×4 (05:12→20:40)
[2019-05-07] MEDS: HYDROMET PO PRN (05:12)
--- NOTE | 2019-05-07 10:09 | Progress Note ---
Assessment and Plan COPD exacerbation Pulmonary Htn, moderate on Opsumit as an outpatient Acute heart failure, diastolic Pulmonary Fibrosis Hypertension Normal thallium stress test 12/2018. [facility] 2014 documents mild obstructive atherosclerosis, normal left ventricle systolic function with ejection fraction 60-65% [facility] 2018documents moderate pulmonary hypertension, mean PA pressure of 35 mmHg. We will get an echocardiogram for LVEF reassessment. Subjective Date of service: 05/07/19 Interval history: Patient is resting in bed and appears comfortable. Her breathing has improved significantly since admission. Objective Vital Signs Temp Pulse Resp BP Pulse Ox 05/07/19 06:08 55 L 05/07/19 03:49 97.6 F 55 L 17 123/61 97 05/06/19 23:12 98.7 F 55 L 18 128/55 95 05/06/19 21:00 96 05/06/19 19:50 97.6 F 75 18 103/57 90 05/06/19 16:00 76 05/06/19 15:46 98.3 F 69 18 136/68 98 05/06/19 12:26 98.0 F 76 18 125/76 96 - Physical Examination General: No Apparent Distress HEENT: Positive: PERRL Neck: Positive: trachea midline Cardiac: Positive: Reg Rate and Rhythm Lungs: Positive: Decreased Breath Sounds Neuro: Positive: Grossly Intact Extremities: Absent: edema
--- NOTE | 2019-05-07 12:56 | Progress Note ---
Assessment and Plan Assessment and plan: Acute on chronic hypoxemic respiratory failure. Continue O2 to maintain sats greater than 92%. Etiology secondary to CHF exacerbation, Pulmonary hypertension and COPD exacerbation. Pulmonary consultation pending. Moderate pulmonary hypertension. Pulmonary fibrosis. Continue per pulmonary. Acute COPD exacerbation. Continue breathing treatments. We'll add systemic steroids. CATRINA/LVOT. 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 Continue Lasix, metoprolol. Cardiology following. Hypertension. Resume antihypertensive medications. GERD. Continue PPI. History Interval history: Patient still reports shortness of breath slightly improved however. Hospitalist Physical - Constitutional Vitals: Temp Pulse Resp BP Pulse Ox 98.2 F 62 17 116/67 85 05/07/19 12:30 05/07/19 12:30 05/07/19 03:49 05/07/19 12:30 05/07/19 12:30 General appearance: Present: no acute distress - EENT Eyes: Present: PERRL, EOM intact ENT: hearing intact, clear oral mucosa, dentition normal - Neck Neck: Present: supple, normal ROM - Respiratory Respiratory effort: normal Respiratory: bilateral: CTA - Cardiovascular Rhythm: regular Heart Sounds: Present: S1 & S2. Absent: gallop, rub - Extremities Extremities: no ischemia, No edema, Full ROM - Abdominal General gastrointestinal: soft, non-tender, non-distended, normal bowel sounds - Integumentary Integumentary: Present: clear, warm, dry - Neurologic Neurologic: CNII-XII intact, moves all extremities Results - Labs CBC & Chem 7: 05/05/19 11:10 05/06/19 05:11 Labs: Laboratory Last Values WBC 5.3 K/mm3 (4.5-11.0) 05/05/19 11:10 RBC 3.53 M/mm3 (3.65-5.03) L 05/05/19 11:10 Hgb 11.2 gm/dl (10.1-14.3) 05/05/19 11:10 Hct 33.1 % (30.3-42.9) 05/05/19 11:10 MCV 94 fl (79-97) 05/05/19 11:10 MCH 32 pg (28-32) 05/05/19 11:10 MCHC 34 % (30-34) 05/05/19 11:10 RDW 15.0 % (13.2-15.2) 05/05/19 11:10 Plt Count 170 K/mm3 (140-440) 05/05/19 11:10 Lymph % (Auto) 21.5 % (13.4-35.0) 05/05/19 11:10 [place] % (Auto) 15.5 % (0.0-7.3) H 05/05/19 11:10 Eos % (Auto) 3.2 % (0.0-4.3) 05/05/19 11:10 Baso % (Auto) 0.7 % (0.0-1.8) 05/05/19 11:10 Lymph # 1.1 K/mm3 (1.2-5.4) L 05/05/19 11:10 [place] # 0.8 K/mm3 (0.0-0.8) 05/05/19 11:10 Eos # 0.2 K/mm3 (0.0-0.4) 05/05/19 11:10 Baso # 0.0 K/mm3 (0.0-0.1) 05/05/19 11:10 Seg Neutrophils % 59.1 % (40.0-70.0) 05/05/19 11:10 Seg Neutrophils # 3.1 K/mm3 (1.8-7.7) 05/05/19 11:10 APTT 30.3 Sec. (24.2-36.6) 05/05/19 11:10 POC ABG pH 7.454 (7.35-7.45) H 05/05/19 11:00 POC ABG pCO2 36.0 (35-45) 05/05/19 11:00 POC ABG pO2 66 (80-105) L 05/05/19 11:00 POC ABG HCO3 25.2 (22-26 mml/L) 05/05/19 11:00 POC ABG Total CO2 26 (23-27mmol/L) 05/05/19 11:00 POC ABG O2 Sat 94 05/05/19 11:00 POC ABG Base Excess 1 ((-2) - (+3)mmol/L) 05/05/19 11:00 28 % 05/05/19 11:00 Sodium 141 mmol/L (137-145) 05/06/19 05:11 Potassium 3.6 mmol/L (3.6-5.0) 05/06/19 05:11 Chloride 100.3 mmol/L (98-107) 05/06/19 05:11 Carbon Dioxide 29 mmol/L (22-30) 05/06/19 05:11 15 mmol/L 05/06/19 05:11 BUN 10 mg/dL (7-17) 05/06/19 05:11 1.0 mg/dL (0.7-1.2) 05/06/19 05:11 Estimated GFR > 60 ml/min 05/06/19 05:11 10 % 05/06/19 05:11 Glucose 98 mg/dL (65-100) 05/06/19 05:11 Lactic Acid 1.90 mmol/L (0.7-2.0) 05/05/19 11:10 Calcium 8.2 mg/dL (8.4-10.2) L 05/06/19 05:11 Magnesium 1.70 mg/dL (1.7-2.3) 05/05/19 15:41 0.60 mg/dL (0.1-1.2) 05/05/19 11:10 AST 28 units/L (5-40) 05/05/19 11:10 ALT 12 units/L (7-56) 05/05/19 11:10 55 units/L (35-129) 05/05/19 11:10 NT-Pro-B Natriuret Pep 3759 pg/mL (0-900) H 05/05/19 11:10 6.8 g/dL (6.3-8.2) 05/05/19 11:10 3.5 g/dL (3.9-5) L 05/05/19 11:10 1.1 % 05/05/19 11:10 TSH 0.564 mlU/mL (0.270-4.200) 05/05/19 15:41 Free T4 0.85 ng/dL (0.76-1.46) 05/05/19 15:41 Colorless (Yellow) 05/05/19 13:43 Clear (Clear) 05/05/19 13:43 8.0 (5.0-7.0) H 05/05/19 13:43 Ur Specific [place] 1.004 (1.003-1.030) 05/05/19 13:43 <15 mg/dl mg/dL (Negative) 05/05/19 13:43 Neg mg/dL (Negative) 05/05/19 13:43 Neg mg/dL (Negative) 05/05/19 13:43 Sm (Negative) 05/05/19 13:43 Neg (Negative) 05/05/19 13:43 Neg (Negative) 05/05/19 13:43 < 2.0 mg/dL (<2.0) 05/05/19 13:43 Ur Leukocyte Esterase Neg (Negative) 05/05/19 13:43 < 1.0 /HPF (0.0-6.0) 05/05/19 13:43 1.0 /HPF (0.0-6.0) 05/05/19 13:43 U Epithel Cells (Auto) < 1.0 /HPF (0-13.0) 05/05/19 13:43 1+ /HPF (Negative) 05/05/19 13:43 Few /HPF 05/05/19 13:43 Active Medications - Current Medications Current Medications: Generic Name Dose Route Start Last Admin Trade Name Freq PRN Reason Stop Dose Admin Acetaminophen 650 mg 05/05/19 15:17 Tylenol PO Q4H PRN Pain MILD(1-3)/Fever >100.5/MERRITT Albuterol 2.5 mg 05/05/19 15:17 Proventil IH Q4HRT PRN Shortness Of Breath Furosemide 20 mg 05/07/19 13:00 Lasix PO QDAY JAKE Hydrocodone Bit/Homatropine Methylb 10 ml 05/05/19 19:37 05/07/19 05:12 Hydromet PO 10 ml Q6H PRN Administration Cough Methylprednisolone Sodium Succinate 60 mg 05/06/19 14:00 05/07/19 05:12 Solu-Medrol IV 60 mg Q8HR JAKE Administration Metoprolol Tartrate 25 mg 05/07/19 22:00 Lopressor PO BID JAKE Miscellaneous Medication 10 mg 05/06/19 10:00 Macitentan (Nf) PO DAILY JAKE Miscellaneous Medication 25 mg 05/06/19 10:00 Paroxetine Cr (Nf) PO QAM JAKE Ondansetron HCl 4 mg 05/05/19 15:17 Zofran IV Q8H PRN Nausea And Vomiting Sodium Chloride 10 ml 05/05/19 22:00 05/06/19 21:55 Sodium Chloride Flush Syringe 10 Ml IV 10 ml BID JAKE Administration Sodium Chloride 10 ml 05/05/19 15:17 05/06/19 06:44 Sodium Chloride Flush Syringe 10 Ml IV 10 ml PRN PRN Administration LINE FLUSH
--- NOTE | 2019-05-07 14:22 | Consultation ---
History of Present Illness Consult date: 05/07/19 Requesting physician: ELOY RINCON Reason for consult: COPD History of present illness: PULMONARY CONSULT NOTE (Full dictation # [id number]) Please see dictated notes for full details Past History Past Medical History: arthritis, COPD, GERD, hypertension, other (Chronic Respiratory Failure) Past Surgical History: hysterectomy Social history: . denies: smoking, alcohol abuse, prescription drug abuse Family history: hypertension Medications and Allergies Allergies Allergy/AdvReac Type Severity Reaction Status Date / Time codeine phosphate Allergy Nausea Verified 11/14/14 07:59 [From Tylenol-Codeine #3] Home Medications Medication Instructions Recorded Confirmed Last Taken Type Macitentan (Nf) [Opsumit (Nf)] 10 mg PO DAILY 03/18/18 05/05/19 05/05/19 History PARoxetine CR (NF) [Paxil (Nf)] 25 mg PO QAM 01/06/19 05/05/19 05/05/19 History Active Meds: Active Medications Acetaminophen (Tylenol) 650 mg PO Q4H PRN PRN Reason: Pain MILD(1-3)/Fever >100.5/MERRITT Albuterol (Proventil) 2.5 mg IH Q4HRT PRN PRN Reason: Shortness Of Breath Furosemide (Lasix) 20 mg PO QDAY JAKE Hydrocodone Bit/Homatropine Methylb (Hydromet) 10 ml PO Q6H PRN PRN Reason: Cough Last Admin: 05/07/19 05:12 Dose: 10 ml Documented by: Methylprednisolone Sodium Succinate (Solu-Medrol) 60 mg IV Q8HR [facility] Last Admin: 05/07/19 05:12 Dose: 60 mg Documented by: Metoprolol Tartrate (Lopressor) 25 mg PO BID [facility] Miscellaneous Medication (Macitentan (Nf)) 10 mg PO DAILY [facility] Miscellaneous Medication (Paroxetine Cr (Nf)) 25 mg PO QAM [facility] Ondansetron HCl (Zofran) 4 mg IV Q8H PRN PRN Reason: Nausea And Vomiting Sodium Chloride (Sodium Chloride Flush Syringe 10 Ml) 10 ml IV BID [facility] Last Admin: 05/06/19 21:55 Dose: 10 ml Documented by: Sodium Chloride (Sodium Chloride Flush Syringe 10 Ml) 10 ml IV PRN PRN PRN Reason: LINE FLUSH Last Admin: 05/06/19 06:44 Dose: 10 ml Documented by: Physical Examination Vital signs: Vital Signs Temp Pulse Resp BP Pulse Ox 98.9 F 71 20 130/82 98 05/05/19 10:15 05/05/19 10:15 05/05/19 10:15 05/05/19 10:15 05/05/19 10:15 Results - Laboratory Findings CBC and BMP: 05/05/19 11:10 05/06/19 05:11 ABG POC ABG pH 7.454 (7.35-7.45) H 05/05/19 11:00 POC ABG pCO2 36.0 (35-45) 05/05/19 11:00 POC ABG pO2 66 (80-105) L 05/05/19 11:00 POC ABG HCO3 25.2 (22-26 mml/L) 05/05/19 11:00 POC ABG Total CO2 26 (23-27mmol/L) 05/05/19 11:00 POC ABG O2 Sat 94 05/05/19 11:00 Abnormal lab findings: Abnormal Labs 05/05/19 05/05/19 05/05/19 11:00 11:10 11:10 RBC 3.53 L [place] % (Auto) 15.5 H Lymph # 1.1 L POC ABG pH 7.454 H POC ABG pO2 66 L Potassium 3.4 L Calcium 8.0 L NT-Pro-B Natriuret Pep Albumin 3.5 L Urine pH 05/05/19 05/05/19 05/06/19 11:10 13:43 05:11 RBC [place] % (Auto) Lymph # POC ABG pH POC ABG pO2 Potassium Calcium 8.2 L NT-Pro-B Natriuret Pep 3759 H Albumin Urine pH 8.0 H
[2019-05-07] MEDS: LASIX PO SCH (16:02)
[2019-05-07] MEDS: SODIUM CHLORIDE FLUSH SYRINGE 10 ML IV SCH ×2 (16:03→22:09)
[2019-05-07] MEDS: TYLENOL PO PRN (17:47)
[2019-05-07] MEDS ORDERED: SOLU-Medrol IV SCH (19:00)
[2019-05-07] MEDS: PULMICORT IH SCH (21:43)
[2019-05-07] MEDS: BROVANA NEBU IH SCH (21:43)
[2019-05-07] MEDS: LOPRESSOR PO SCH (22:08)
[2019-05-08] MEDS: HYDROMET PO PRN ×2 (05:18→22:15)
--- NOTE | 2019-05-08 05:23 | Consultation ---
PULMONARY CONSULTATION CONSULTING PHYSICIAN: Louis Kirkpatrick MD REASON FOR CONSULTATION: Acute COPD exacerbation. CHIEF COMPLAINT AND HISTORY OF PRESENT ILLNESS: The patient is a 78-year-old female with past medical history indeed significant for a diagnosis of chronic obstructive lung disease on 2 liters nasal cannula at home, came into the Emergency Room, complaining of shortness of breath and a nonproductive cough that had been going on for about 3 days. She does have nebulizer treatments at home. She stated that they did not improve her symptoms. She felt like she did have a fever. She complained also of orthopnea and paroxysmal nocturnal dyspnea as well as dyspnea on exertion. Emergency medical services were called. In the Emergency Room, she was found to essentially have symptoms consistent with a CHF exacerbation. She was hypoxemic. We are asked to assist with management. When I stopped by to see her, she denied any fevers or chills at home. She denied any nausea, vomiting, or overt aspiration. She denied any new onset of leg swelling either unilaterally or bilaterally. No calf pain. No suggestion of a deep venous thrombosis. She denied any sick contacts. When asked about tobacco use or abuse she gave me a remote tobacco smoking history that was less than 10-pack year. This really is as much of the history of this presentation as I have. PAST MEDICAL HISTORY: History of COPD, on home oxygen therapy, history of arthritis, gastroesophageal reflux disease, history of hypertension. PAST SURGICAL HISTORY: She has had a hysterectomy. MEDICATIONS: She was on at the time I stopped by to see were reviewed, pertinent medications include the following: Tylenol 650 mg p.o. q. 4 hours p.r.n. mild pain or fevers, Albuterol nebulizer treatments 2.5 mg nebulized q. 4 hours p.r.n. shortness of breath, Lasix 20 mg p.o. daily, Hydromet cough syrup 10 mL p.o. q 6 hours p.r.n. cough, Solu-Medrol 60 mg IV q. 8 hours, metoprolol 25 mg p.o. b.i.d., couple of non-formulary medications, Zofran 4 mg IV q. 8 hours p.r.n. nausea and vomiting. ALLERGIES: CODEINE PHOSPHATE, nature of this allergy is unknown. DIET: Thin lady. Denies acute weight loss or gain in the preceding few weeks to months. FAMILY AND SOCIAL HISTORY: Apparently lives at home. Denies current alcohol, tobacco, or illicit drug use or abuse. She is . There is a family history of hypertension. REVIEW OF SYSTEMS: She denies loss of consciousness. No new onset seizures. No new onset focal weakness. She denies any significant weight loss or gain. She denies any night sweats. She denies any sinusitis. She denies any tinnitus. She denies any palpitations. She denies heat or cold intolerance. Denies polydipsia. Denies polyuria. Denies any paresthesias. Denies any excessive sadness or excessive unexplained happiness. Complete 13-system review of systems obtained. Pertinent positives and/or negatives as in body of history above; otherwise, they are noncontributory. PHYSICAL EXAMINATION: VITAL SIGNS: At presentation, she was afebrile, temperature 98.9 degrees Fahrenheit with a pulse of 71, respiratory rate of 20, blood pressure 130/82, O2 sats were 98%, inspired oxygen concentration at the time was not recorded. When I stopped by to see her, O2 sats were 97% on 2 liters nasal cannula. GENERAL: She is an elderly looking female, normocephalic, atraumatic, lying in bed with the head of the bed elevated with a mildly increased respiratory effort at rest. HEAD, EYES, EARS, NOSE, AND THROAT: She is anicteric. No conjunctival erythema. Oropharynx is moist, is a Mallampati #2 oropharynx. Mild jugular venous distention. No thyromegaly. Grossly, no palpable lymph nodes in the supraclavicular or submandibular lymph node chains. LUNGS: Auscultation of both lung hartmann revealed bilateral diminished breath sounds, prolonged expiratory phase, expiratory wheezes as well as inspiratory rhonchi in the bases. HEART: Heart sounds 1 and 2 were heard, regular rate and rhythm at the time of my evaluation without overt rubs or murmurs. ABDOMEN: Soft, flat. Bowel sounds are positive, nontender. No palpable hepatosplenomegaly. EXTREMITIES: Without overt digital clubbing or cyanosis. She has trace pedal edema. Dorsalis pedis pedal pulses were palpable and strong bilaterally. NEUROLOGIC: Pupils were equal, round, about 4 mm, reactive to light. Extraocular muscle movements were intact. She moves all 4 extremities spontaneously. The skin was of normal turgor without overt cellulitis or rash. Her mood was normal. Her affect was appropriate. She had intact judgment and insight. LABORATORY DATA: From my review are as follows: Admission white cell count 5300, hemoglobin 11.2, hematocrit 33.1, platelet count 170. No band forms. Arterial blood gas showed a pH of 7.45, pCO2 of 36, pO2 of 66 that was on 2 liters nasal cannula. Serum sodium was 141, potassium 3.4, chloride 103, bicarbonate 26, BUN 8, creatinine 1.1 and glucose of 97. Lactic acid level was within normal limits. BNP elevated at 3759. Albumin 3.5; otherwise, liver function tests essentially within normal limits. TSH was within normal limits. Urinalysis was negative for nitrites and leukocyte esterase and really unremarkable. Two sets of blood cultures were drawn, no growth to date. DIAGNOSTIC DATA: She had a chest x-ray done in the Emergency Room. I have reviewed the chest x-ray as well as the radiologist's interpretation. She has gross cardiomegaly. She has widening of the mediastinum with what appears to be an uncoiled aorta, but she also has a right lateral deviation of the mid trachea. I cannot rule out mediastinal adenopathy or significant abdominal aortic aneurysm. There are mildly increased interstitial markings bilaterally with blunting of the costophrenic angles consistent with [id number] pulmonary edema. No gross bony fractures. No gross pneumothorax. There is a chest x-ray from December that essentially reveals the same wide mediastinum. A CT angio of the chest was also done around that time in December. I have reviewed the CT. I do not see any obvious dissection. It was not a dissection protocol. I do not see any gross filling defects. She does have some shotty mediastinal adenopathy. The lung windows do show pulmonary fibrotic changes without overt honeycombing and no overt emphysematous changes. She does have an enlarged pulmonary artery trunk consistent with possible pulmonary hypertension. Echocardiogram was done. I am able to read the interpretation. Normal systolic ejection fraction. There is diastolic dysfunction. Right ventricular global systolic function is reduced. 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 Right ventricular systolic pressure calculated at 37 mmHg. ASSESSMENT: 1. Acute on chronic hypoxemic respiratory failure. 2. Acute chronic obstructive pulmonary disease exacerbation. 3. Pulmonary hypertension, moderate by the numbers. 4. Pulmonary fibrosis. 5. History of hypertension. 6. Gastroesophageal reflux disease. 7. Arthritis. 8. Hypokalemia, mild at presentation. 9. Elevated serum BNP. PLAN: I have explained to her the importance of supplemental oxygen and being compliant with her comorbidities, especially with the pulmonary hypertension. We will continue with the supplemental oxygen, keeping O2 sats greater than or equal to about 90% at all times. I do agree with diuresis and gentle diuresis as is being done as we certainly do not want to overtly or acutely reduce her total intravascular blood volume and affect cardiovascular hemodynamics. The right ventricle is probably partly dependent on [place] forces at this time. We will continue bronchodilators. I will go ahead and schedule her Brovana long-acting bronchodilators as well as inhaled corticosteroids and begin not to steroid taper as in light of her congestive heart failure numbers. I will cut the Solu-Medrol down to 40 mg IV q. 12 hours while starting the inhaled corticosteroids. Acute coronary syndrome workup is ongoing. I will defer to the pack operator. Bilevel positive airway pressure ventilation therapy will be offered on a p.r.n. basis. She is going to be placed on GI and DVT prophylaxis. Potassium has been replaced. Her chronic disease medications will be continued by the attending. Flu and pneumonia vaccination will be addressed per protocol. Thank you very much for the consult, Dr. Kirkpatrick. We will follow along. We will make further recommendations as picture progresses/becomes clearer. JOB# [id number] SHANTA/RIZWAN
--- NOTE | 2019-05-08 07:09 | Progress Note ---
Assessment and Plan Acute on chronic hypoxemic respiratory failure Moderate pulmonary hypertension on Opsumit as outpatient Pulmonary fibrosis Acute COPD exacerbation Hypertension GERD Subjective Date of service: 05/08/19 Interval history: Patient is seen today for: Seen and examined at bedside; 24hour events reviewed; nursing and respiratory care staff consulted; no adverse overnight events reported to me; Objective - Exam Narrative Exam: General appearance: Present: mild distress - EENT Eyes: Present: PERRL ENT: hearing intact, clear oral mucosa - Neck Neck: Present: supple, normal ROM - Respiratory Respiratory effort: normal Respiratory: bilateral: diminished, rhonchi - Cardiovascular Heart Sounds: Present: S1 & S2. Absent: rub, click - Extremities Extremities: pulses symmetrical, No edema Extremity abnormal: edema Peripheral Pulses: within normal limits - Abdominal General gastrointestinal: Present: soft, non-tender, non-distended, normal bowel sounds Female genitourinary: Present: normal - Integumentary Integumentary: Present: clear, warm, dry - Musculoskeletal Musculoskeletal: gait normal, strength equal bilaterally - Psychiatric Psychiatric: appropriate mood/affect, intact judgment & insight - Neurologic Neurologic: CNII-XII intact, moves all extremities Vital Signs - 12hr 05/07/19 05/07/19 05/07/19 20:25 21:10 21:11 Temperature 98.3 F Pulse Rate 70 73 Pulse Rate [ Anterior Bilateral] Respiratory 20 18 Rate Respiratory Rate [Anterior Bilateral] Blood Pressure 125/58 O2 Sat by Pulse 97 Oximetry 05/07/19 05/07/19 05/07/19 21:44 21:48 21:52 Temperature Pulse Rate Pulse Rate [ 82 80 Anterior Bilateral] Respiratory Rate Respiratory 20 20 Rate [Anterior Bilateral] Blood Pressure O2 Sat by Pulse 96 Oximetry 05/08/19 05/08/19 05/08/19 00:08 00:09 04:54 Temperature 98.0 F Pulse Rate 61 52 L Pulse Rate [ Anterior Bilateral] Respiratory 18 20 Rate Respiratory Rate [Anterior Bilateral] Blood Pressure 147/68 127/55 O2 Sat by Pulse 97 98 Oximetry 05/08/19 04:56 Temperature 97.8 F Pulse Rate Pulse Rate [ Anterior Bilateral] Respiratory Rate Respiratory Rate [Anterior Bilateral] Blood Pressure O2 Sat by Pulse Oximetry CBC and BMP: 05/05/19 11:10 05/06/19 05:11 ABG, PT/INR, D-dimer: ABG POC ABG pH 7.454 (7.35-7.45) H 05/05/19 11:00 POC ABG pCO2 36.0 (35-45) 05/05/19 11:00 POC ABG pO2 66 (80-105) L 05/05/19 11:00 POC ABG HCO3 25.2 (22-26 mml/L) 05/05/19 11:00 POC ABG Total CO2 26 (23-27mmol/L) 05/05/19 11:00 POC ABG O2 Sat 94 05/05/19 11:00 Abnormal lab findings: Abnormal Labs 05/05/19 05/05/19 05/05/19 11:00 11:10 11:10 RBC 3.53 L [place] % (Auto) 15.5 H Lymph # 1.1 L POC ABG pH 7.454 H POC ABG pO2 66 L Potassium 3.4 L Calcium 8.0 L NT-Pro-B Natriuret Pep Albumin 3.5 L Urine pH 05/05/19 05/05/19 05/06/19 11:10 13:43 05:11 RBC [place] % (Auto) Lymph # POC ABG pH POC ABG pO2 Potassium Calcium 8.2 L NT-Pro-B Natriuret Pep 3759 H Albumin Urine pH 8.0 H Chest x-ray: image reviewed (Bilateral interstitial infiltrates) Additional Studies: Normal thallium stress test 12/2018. [facility] 2013 documents mild obstructive atherosclerosis, normal left ventricle syst olic function with ejection fraction 60-65% RH 2018documents moderate pulmonary hypertension, mean PA pressure of 35 mmHg.
[2019-05-08] MEDS: PULMICORT IH SCH ×2 (07:56→20:27)
[2019-05-08] MEDS: BROVANA NEBU IH SCH ×2 (07:56→20:27)
[2019-05-08] MEDS: SOLU-Medrol IV SCH ×2 (08:00→22:12)
--- NOTE | 2019-05-08 09:30 | Progress Note ---
Assessment and Plan 1. Marked sinus bradycardia 2. 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 Chronic obstructive pulmonary disease 4. Pulmonary hypertension Plan Discontinue metoprolol secondary to sinus bradycardia Subjective Date of service: 05/08/19 Interval history: No cardiac complains Objective Vital Signs Temp Pulse Pulse Resp Resp Resp BP 05/08/19 09:05 98.3 F 54 L 18 119/51 05/08/19 04:56 97.8 F 05/08/19 04:54 52 L 20 127/55 05/08/19 00:09 98.0 F 05/08/19 00:08 61 18 147/68 05/07/19 21:52 80 20 05/07/19 21:48 05/07/19 21:44 82 20 05/07/19 21:11 98.3 F 05/07/19 21:10 73 18 125/58 05/07/19 20:25 70 20 05/07/19 18:00 20 05/07/19 17:47 20 05/07/19 17:06 98.2 F 68 118/59 05/07/19 16:00 70 05/07/19 12:30 98.2 F 62 116/67 05/07/19 10:00 Pulse Ox 05/08/19 09:05 97 05/08/19 04:56 05/08/19 04:54 98 05/08/19 00:09 05/08/19 00:08 97 05/07/19 21:52 05/07/19 21:48 96 05/07/19 21:44 05/07/19 21:11 05/07/19 21:10 97 05/07/19 20:25 05/07/19 18:00 05/07/19 17:47 05/07/19 17:06 96 05/07/19 16:00 05/07/19 12:30 85 05/07/19 10:00 96 - Physical Examination General: No Apparent Distress HEENT: Positive: PERRL Neck: Positive: trachea midline Cardiac: Positive: Regular Rate, S1/S2, S4, PMI, Dilated, Laterally Displaced Lungs: Positive: clear to auscultation, No Wheeze, Rales, Rhonchi Neuro: Positive: Grossly Intact Abdomen: Skin: Positive: Clear Extremities: Absent: edema
[2019-05-08] MEDS ORDERED: LOVENOX SUB-Q SCH (10:00)
--- NOTE | 2019-05-08 10:47 | Progress Note ---
Assessment and Plan Assessment and plan: Acute on chronic hypoxemic respiratory failure. Continue O2 to maintain sats greater than 92%. Etiology secondary to CHF exacerbation, Pulmonary hypertension and COPD exacerbation. Pulmonary consultation pending. Moderate pulmonary hypertension. Pulmonary fibrosis. Continue per pulmonary. Acute COPD exacerbation. Continue breathing treatments. Continue systemic steroids. 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 Continue Lasix, metoprolol discontinued secondary to bradycardia. Cardiology following. [place] sinus bradycardia. Hypertension. Resume antihypertensive medications. GERD. Continue PPI. Disposition. PT evaluation. History Interval history: Patient still reports shortness of breath slightly improved however. Hospitalist Physical - Constitutional Vitals: Temp Pulse Resp BP Pulse Ox 98.3 F 54 L 18 119/51 97 05/08/19 09:05 05/08/19 09:05 05/08/19 09:05 05/08/19 09:05 05/08/19 09:05 General appearance: Present: no acute distress - EENT Eyes: Present: PERRL, EOM intact ENT: hearing intact, clear oral mucosa, dentition normal - Neck Neck: Present: supple, normal ROM - Respiratory Respiratory effort: normal Respiratory: bilateral: CTA - Cardiovascular Rhythm: regular Heart Sounds: Present: S1 & S2. Absent: gallop, rub - Extremities Extremities: no ischemia, No edema, Full ROM - Abdominal General gastrointestinal: soft, non-tender, non-distended, normal bowel sounds - Integumentary Integumentary: Present: clear, warm, dry - Neurologic Neurologic: CNII-XII intact, moves all extremities Results - Labs CBC & Chem 7: 05/05/19 11:10 05/06/19 05:11 Labs: Laboratory Last Values WBC 5.3 K/mm3 (4.5-11.0) 05/05/19 11:10 RBC 3.53 M/mm3 (3.65-5.03) L 05/05/19 11:10 Hgb 11.2 gm/dl (10.1-14.3) 05/05/19 11:10 Hct 33.1 % (30.3-42.9) 05/05/19 11:10 MCV 94 fl (79-97) 05/05/19 11:10 MCH 32 pg (28-32) 05/05/19 11:10 MCHC 34 % (30-34) 05/05/19 11:10 RDW 15.0 % (13.2-15.2) 05/05/19 11:10 Plt Count 170 K/mm3 (140-440) 05/05/19 11:10 Lymph % (Auto) 21.5 % (13.4-35.0) 05/05/19 11:10 [place] % (Auto) 15.5 % (0.0-7.3) H 05/05/19 11:10 Eos % (Auto) 3.2 % (0.0-4.3) 05/05/19 11:10 Baso % (Auto) 0.7 % (0.0-1.8) 05/05/19 11:10 Lymph # 1.1 K/mm3 (1.2-5.4) L 05/05/19 11:10 [place] # 0.8 K/mm3 (0.0-0.8) 05/05/19 11:10 Eos # 0.2 K/mm3 (0.0-0.4) 05/05/19 11:10 Baso # 0.0 K/mm3 (0.0-0.1) 05/05/19 11:10 Seg Neutrophils % 59.1 % (40.0-70.0) 05/05/19 11:10 Seg Neutrophils # 3.1 K/mm3 (1.8-7.7) 05/05/19 11:10 APTT 30.3 Sec. (24.2-36.6) 05/05/19 11:10 POC ABG pH 7.454 (7.35-7.45) H 05/05/19 11:00 POC ABG pCO2 36.0 (35-45) 05/05/19 11:00 POC ABG pO2 66 (80-105) L 05/05/19 11:00 POC ABG HCO3 25.2 (22-26 mml/L) 05/05/19 11:00 POC ABG Total CO2 26 (23-27mmol/L) 05/05/19 11:00 POC ABG O2 Sat 94 05/05/19 11:00 POC ABG Base Excess 1 ((-2) - (+3)mmol/L) 05/05/19 11:00 28 % 05/05/19 11:00 Sodium 141 mmol/L (137-145) 05/06/19 05:11 Potassium 3.6 mmol/L (3.6-5.0) 05/06/19 05:11 Chloride 100.3 mmol/L (98-107) 05/06/19 05:11 Carbon Dioxide 29 mmol/L (22-30) 05/06/19 05:11 15 mmol/L 05/06/19 05:11 BUN 10 mg/dL (7-17) 05/06/19 05:11 1.0 mg/dL (0.7-1.2) 05/06/19 05:11 Estimated GFR > 60 ml/min 05/06/19 05:11 10 % 05/06/19 05:11 Glucose 98 mg/dL (65-100) 05/06/19 05:11 Lactic Acid 1.90 mmol/L (0.7-2.0) 05/05/19 11:10 Calcium 8.2 mg/dL (8.4-10.2) L 05/06/19 05:11 Magnesium 1.70 mg/dL (1.7-2.3) 05/05/19 15:41 0.60 mg/dL (0.1-1.2) 05/05/19 11:10 AST 28 units/L (5-40) 05/05/19 11:10 ALT 12 units/L (7-56) 05/05/19 11:10 55 units/L (35-129) 05/05/19 11:10 NT-Pro-B Natriuret Pep 3759 pg/mL (0-900) H 05/05/19 11:10 6.8 g/dL (6.3-8.2) 05/05/19 11:10 3.5 g/dL (3.9-5) L 05/05/19 11:10 1.1 % 05/05/19 11:10 TSH 0.564 mlU/mL (0.270-4.200) 05/05/19 15:41 Free T4 0.85 ng/dL (0.76-1.46) 05/05/19 15:41 Colorless (Yellow) 05/05/19 13:43 Clear (Clear) 05/05/19 13:43 8.0 (5.0-7.0) H 05/05/19 13:43 Ur Specific [place] 1.004 (1.003-1.030) 05/05/19 13:43 <15 mg/dl mg/dL (Negative) 05/05/19 13:43 Neg mg/dL (Negative) 05/05/19 13:43 Neg mg/dL (Negative) 05/05/19 13:43 Sm (Negative) 05/05/19 13:43 Neg (Negative) 05/05/19 13:43 Neg (Negative) 05/05/19 13:43 < 2.0 mg/dL (<2.0) 05/05/19 13:43 Ur Leukocyte Esterase Neg (Negative) 05/05/19 13:43 < 1.0 /HPF (0.0-6.0) 05/05/19 13:43 1.0 /HPF (0.0-6.0) 05/05/19 13:43 U Epithel Cells (Auto) < 1.0 /HPF (0-13.0) 05/05/19 13:43 1+ /HPF (Negative) 05/05/19 13:43 Few /HPF 05/05/19 13:43 Active Medications - Current Medications Current Medications: Generic Name Dose Route Start Last Admin Trade Name Freq PRN Reason Stop Dose Admin Acetaminophen 650 mg 05/05/19 15:17 05/07/19 17:47 Tylenol PO 650 mg Q4H PRN Administration Pain MILD(1-3)/Fever >100.5/MERRITT Albuterol 2.5 mg 05/05/19 15:17 Proventil IH Q4HRT PRN Shortness Of Breath Arformoterol Tartrate 15 mcg 05/07/19 20:00 05/08/19 07:56 Brovana Nebu IH 15 mcg Q12HRT JAKE Administration Azithromycin 250 mg 05/08/19 11:00 Zithromax PO QDAY JAKE Budesonide 0.5 mg 05/07/19 20:00 05/08/19 07:56 Pulmicort IH 0.5 mg Q12HRT JAKE Administration Enoxaparin Sodium 40 mg 05/08/19 10:00 Lovenox SUB-Q QDAY@1000 JAKE Famotidine 20 mg 05/08/19 10:00 Pepcid PO QDAY JAKE Furosemide 20 mg 05/07/19 13:00 05/07/19 16:02 Lasix PO 20 mg QDAY JAKE Administration Hydrocodone Bit/Homatropine Methylb 10 ml 05/05/19 19:37 05/08/19 05:18 Hydromet PO 10 ml Q6H PRN Administration Cough Methylprednisolone Sodium Succinate 40 mg 05/07/19 19:00 05/07/19 20:40 Solu-Medrol IV 40 mg Q12H JAKE Administration Metoprolol Tartrate 25 mg 05/07/19 22:00 05/07/19 22:08 Lopressor PO 05/08/19 23:59 25 mg BID JAKE Administration Miscellaneous Medication 10 mg 05/06/19 10:00 Macitentan (Nf) PO DAILY JAKE Miscellaneous Medication 25 mg 05/06/19 10:00 Paroxetine Cr (Nf) PO QAM JAKE Ondansetron HCl 4 mg 05/05/19 15:17 Zofran IV Q8H PRN Nausea And Vomiting Oxycodone/Acetaminophen 1 tab 05/08/19 05:14 Percocet 5/325 PO Q8H PRN Pain, Moderate (4-6) Sodium Chloride 10 ml 05/05/19 22:00 05/07/19 22:09 Sodium Chloride Flush Syringe 10 Ml IV 10 ml BID JAKE Administration Sodium Chloride 10 ml 05/05/19 15:17 05/06/19 06:44 Sodium Chloride Flush Syringe 10 Ml IV 10 ml PRN PRN Administration LINE FLUSH
[2019-05-08] MEDS: PEPCID PO SCH (12:13)
[2019-05-08] MEDS: ZITHROMAX PO SCH (12:13)
[2019-05-08] MEDS: LASIX PO SCH (12:13)
[2019-05-08] MEDS: LOVENOX SUB-Q SCH (12:14)
[2019-05-08] MEDS: SODIUM CHLORIDE FLUSH SYRINGE 10 ML IV SCH (12:14)
[2019-05-08] MEDS: LOPRESSOR PO SCH ×2 (12:14→22:13)
[2019-05-09] MEDS: SODIUM CHLORIDE FLUSH SYRINGE 10 ML IV SCH ×3 (05:45→22:01)
[2019-05-09] MEDS: PULMICORT IH SCH ×2 (08:19→20:29)
[2019-05-09] MEDS: BROVANA NEBU IH SCH ×2 (08:19→20:29)
[2019-05-09] MEDS: PEPCID PO SCH (09:15)
[2019-05-09] MEDS: LOVENOX SUB-Q SCH (09:15)
[2019-05-09] MEDS: ZITHROMAX PO SCH (09:15)
[2019-05-09] MEDS: LASIX PO SCH (09:15)
[2019-05-09] MEDS: SOLU-Medrol IV SCH ×2 (09:15→18:13)
--- NOTE | 2019-05-09 10:24 | Progress Note ---
Assessment and Plan 1. Marked sinus bradycardia 2. 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 Chronic obstructive pulmonary disease 4. Pulmonary hypertension Plan Bradycardia resolved with discontinuation Metoprolol Subjective Date of service: 05/09/19 Interval history: No cardiac complains Objective Vital Signs Temp Pulse Pulse Resp Resp Resp BP 05/09/19 08:20 62 18 05/09/19 08:08 46 L 05/09/19 05:19 98.0 F 05/09/19 05:18 55 L 20 166/69 05/08/19 23:35 97.7 F 05/08/19 23:34 58 L 18 136/57 05/08/19 22:13 54 L 05/08/19 20:40 55 L 20 05/08/19 20:29 05/08/19 20:27 53 L 20 05/08/19 20:25 22 05/08/19 20:24 54 L 05/08/19 20:12 98.2 F 05/08/19 20:11 54 L 20 129/54 05/08/19 18:00 18 05/08/19 17:41 104 H 163/85 05/08/19 17:35 61 143/52 05/08/19 12:14 55 L 05/08/19 12:05 98.2 F 59 L 18 102/44 05/08/19 12:00 68 Pulse Ox 05/09/19 08:20 100 05/09/19 08:08 05/09/19 05:19 05/09/19 05:18 97 05/08/19 23:35 05/08/19 23:34 96 05/08/19 22:13 05/08/19 20:40 05/08/19 20:29 96 05/08/19 20:27 05/08/19 20:25 05/08/19 20:24 05/08/19 20:12 05/08/19 20:11 97 05/08/19 18:00 05/08/19 17:41 95 05/08/19 17:35 96 05/08/19 12:14 05/08/19 12:05 97 05/08/19 12:00 - Physical Examination General: No Apparent Distress HEENT: Positive: PERRL Neck: Positive: trachea midline Cardiac: Positive: Regular Rate, S1/S2, PMI, Laterally Displaced Lungs: Positive: clear to auscultation, No Wheeze, Rales, Rhonchi Neuro: Positive: Grossly Intact Abdomen: Skin: Positive: Clear Extremities: Absent: edema
--- NOTE | 2019-05-09 12:39 | Progress Note ---
Assessment and Plan Assessment and plan: Acute on chronic hypoxemic respiratory failure. Continue O2 to maintain sats greater than 92%. Etiology secondary to CHF exacerbation, Pulmonary hypertension and COPD exacerbation. Pulmonary consultation pending. Moderate pulmonary hypertension. Pulmonary fibrosis. Continue per pulmonary. Acute COPD exacerbation. Continue breathing treatments. Continue systemic steroids. 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 Continue Lasix, metoprolol discontinued secondary to bradycardia. Cardiology following. [place] sinus bradycardia. Hypertension. Resume antihypertensive medications. GERD. Continue PPI. Disposition. Await PT evaluation. History Interval history: Patient still reports shortness of breath slightly improved however. Hospitalist Physical - Constitutional Vitals: Temp Pulse Resp BP Pulse Ox 98.3 F 58 L 18 139/65 97 05/09/19 12:31 05/09/19 12:31 05/09/19 12:31 05/09/19 12:31 05/09/19 12:31 General appearance: Present: no acute distress - EENT Eyes: Present: PERRL, EOM intact ENT: hearing intact, clear oral mucosa, dentition normal - Neck Neck: Present: supple, normal ROM - Respiratory Respiratory effort: normal Respiratory: bilateral: CTA - Cardiovascular Rhythm: regular Heart Sounds: Present: S1 & S2. Absent: gallop, rub - Extremities Extremities: no ischemia, No edema, Full ROM - Abdominal General gastrointestinal: soft, non-tender, non-distended, normal bowel sounds - Integumentary Integumentary: Present: clear, warm, dry - Neurologic Neurologic: CNII-XII intact, moves all extremities Results - Labs CBC & Chem 7: 05/05/19 11:10 05/06/19 05:11 Labs: Laboratory Last Values WBC 5.3 K/mm3 (4.5-11.0) 05/05/19 11:10 RBC 3.53 M/mm3 (3.65-5.03) L 05/05/19 11:10 Hgb 11.2 gm/dl (10.1-14.3) 05/05/19 11:10 Hct 33.1 % (30.3-42.9) 05/05/19 11:10 MCV 94 fl (79-97) 05/05/19 11:10 MCH 32 pg (28-32) 05/05/19 11:10 MCHC 34 % (30-34) 05/05/19 11:10 RDW 15.0 % (13.2-15.2) 05/05/19 11:10 Plt Count 170 K/mm3 (140-440) 05/05/19 11:10 Lymph % (Auto) 21.5 % (13.4-35.0) 05/05/19 11:10 [place] % (Auto) 15.5 % (0.0-7.3) H 05/05/19 11:10 Eos % (Auto) 3.2 % (0.0-4.3) 05/05/19 11:10 Baso % (Auto) 0.7 % (0.0-1.8) 05/05/19 11:10 Lymph # 1.1 K/mm3 (1.2-5.4) L 05/05/19 11:10 [place] # 0.8 K/mm3 (0.0-0.8) 05/05/19 11:10 Eos # 0.2 K/mm3 (0.0-0.4) 05/05/19 11:10 Baso # 0.0 K/mm3 (0.0-0.1) 05/05/19 11:10 Seg Neutrophils % 59.1 % (40.0-70.0) 05/05/19 11:10 Seg Neutrophils # 3.1 K/mm3 (1.8-7.7) 05/05/19 11:10 APTT 30.3 Sec. (24.2-36.6) 05/05/19 11:10 POC ABG pH 7.454 (7.35-7.45) H 05/05/19 11:00 POC ABG pCO2 36.0 (35-45) 05/05/19 11:00 POC ABG pO2 66 (80-105) L 05/05/19 11:00 POC ABG HCO3 25.2 (22-26 mml/L) 05/05/19 11:00 POC ABG Total CO2 26 (23-27mmol/L) 05/05/19 11:00 POC ABG O2 Sat 94 05/05/19 11:00 POC ABG Base Excess 1 ((-2) - (+3)mmol/L) 05/05/19 11:00 28 % 05/05/19 11:00 Sodium 141 mmol/L (137-145) 05/06/19 05:11 Potassium 3.6 mmol/L (3.6-5.0) 05/06/19 05:11 Chloride 100.3 mmol/L (98-107) 05/06/19 05:11 Carbon Dioxide 29 mmol/L (22-30) 05/06/19 05:11 15 mmol/L 05/06/19 05:11 BUN 10 mg/dL (7-17) 05/06/19 05:11 1.0 mg/dL (0.7-1.2) 05/06/19 05:11 Estimated GFR > 60 ml/min 05/06/19 05:11 10 % 05/06/19 05:11 Glucose 98 mg/dL (65-100) 05/06/19 05:11 Lactic Acid 1.90 mmol/L (0.7-2.0) 05/05/19 11:10 Calcium 8.2 mg/dL (8.4-10.2) L 05/06/19 05:11 Magnesium 1.70 mg/dL (1.7-2.3) 05/05/19 15:41 0.60 mg/dL (0.1-1.2) 05/05/19 11:10 AST 28 units/L (5-40) 05/05/19 11:10 ALT 12 units/L (7-56) 05/05/19 11:10 55 units/L (35-129) 05/05/19 11:10 NT-Pro-B Natriuret Pep 3759 pg/mL (0-900) H 05/05/19 11:10 6.8 g/dL (6.3-8.2) 05/05/19 11:10 3.5 g/dL (3.9-5) L 05/05/19 11:10 1.1 % 05/05/19 11:10 TSH 0.564 mlU/mL (0.270-4.200) 05/05/19 15:41 Free T4 0.85 ng/dL (0.76-1.46) 05/05/19 15:41 Colorless (Yellow) 05/05/19 13:43 Clear (Clear) 05/05/19 13:43 8.0 (5.0-7.0) H 05/05/19 13:43 Ur Specific [place] 1.004 (1.003-1.030) 05/05/19 13:43 <15 mg/dl mg/dL (Negative) 05/05/19 13:43 Neg mg/dL (Negative) 05/05/19 13:43 Neg mg/dL (Negative) 05/05/19 13:43 Sm (Negative) 05/05/19 13:43 Neg (Negative) 05/05/19 13:43 Neg (Negative) 05/05/19 13:43 < 2.0 mg/dL (<2.0) 05/05/19 13:43 Ur Leukocyte Esterase Neg (Negative) 05/05/19 13:43 < 1.0 /HPF (0.0-6.0) 05/05/19 13:43 1.0 /HPF (0.0-6.0) 05/05/19 13:43 U Epithel Cells (Auto) < 1.0 /HPF (0-13.0) 05/05/19 13:43 1+ /HPF (Negative) 05/05/19 13:43 Few /HPF 05/05/19 13:43 Active Medications - Current Medications Current Medications: Generic Name Dose Route Start Last Admin Trade Name Freq PRN Reason Stop Dose Admin Acetaminophen 650 mg 05/05/19 15:17 05/07/19 17:47 Tylenol PO 650 mg Q4H PRN Administration Pain MILD(1-3)/Fever >100.5/MERRITT Albuterol 2.5 mg 05/05/19 15:17 Proventil IH Q4HRT PRN Shortness Of Breath Arformoterol Tartrate 15 mcg 05/07/19 20:00 05/09/19 08:19 Brovana Nebu IH 15 mcg Q12HRT JAKE Administration Azithromycin 250 mg 05/08/19 11:00 05/09/19 09:15 Zithromax PO 250 mg QDAY JAKE Administration Budesonide 0.5 mg 05/07/19 20:00 05/09/19 08:19 Pulmicort IH 0.5 mg Q12HRT JAKE Administration Enoxaparin Sodium 40 mg 05/08/19 10:00 05/09/19 09:15 Lovenox SUB-Q 40 mg QDAY@1000 JAKE Administration Famotidine 20 mg 05/08/19 10:00 05/09/19 09:15 Pepcid PO 20 mg QDAY JAKE Administration Furosemide 20 mg 05/07/19 13:00 05/09/19 09:15 Lasix PO 20 mg QDAY JAKE Administration Hydrocodone Bit/Homatropine Methylb 10 ml 05/05/19 19:37 05/08/19 22:15 Hydromet PO 10 ml Q6H PRN Administration Cough Methylprednisolone Sodium Succinate 40 mg 05/07/19 19:00 05/09/19 09:15 Solu-Medrol IV 40 mg Q12H JAKE Administration Miscellaneous Medication 10 mg 05/06/19 10:00 Macitentan (Nf) PO DAILY JAKE Miscellaneous Medication 25 mg 05/06/19 10:00 Paroxetine Cr (Nf) PO QAM JAKE Ondansetron HCl 4 mg 05/05/19 15:17 Zofran IV Q8H PRN Nausea And Vomiting Oxycodone/Acetaminophen 1 tab 05/08/19 05:14 Percocet 5/325 PO Q8H PRN Pain, Moderate (4-6) Sodium Chloride 10 ml 05/05/19 22:00 05/09/19 09:15 Sodium Chloride Flush Syringe 10 Ml IV 10 ml BID JAKE Administration Sodium Chloride 10 ml 05/05/19 15:17 05/06/19 06:44 Sodium Chloride Flush Syringe 10 Ml IV 10 ml PRN PRN Administration LINE FLUSH Nutrition/Malnutrition Assess - Dietary Evaluation Nutrition/Malnutrition Findings: Nutrition Notes Start: 05/09/19 08:45 Freq: Status: Active Protocol: Document 05/09/19 08:45 XAVIER (Rec: 05/09/19 08:46 XAVIER [email or web address]) Nutrition Notes Need for Assessment generated from: MD Order Initial or Follow up Brief Note Subjective/Other Information RD consulted for ONS suitable for pt that is lactose intolerant. ONS already ordered by RN. Will check for ONS tolerance. Nutrition Intervention Follow-Up By: 05/11/19 Additional Comments F/U: ONS tolerance; need for clear ONS
--- NOTE | 2019-05-09 17:20 | Progress Note ---
Assessment and Plan Patient awake. Resting on 2 litres O2. Says breathing better. Cough is getting better. O2 saturation 95%. - Patient Problems (1) Respiratory failure Current Visit: Yes Status: Acute Qualifiers: Chronicity: acute on chronic Plan to address problem: O2 2 litres via nasal canula. Albuterol/atrovent aerosol treatments q 6 hours. Continue I/V solumedrol. Continue Zithromax. Continue S/C Lovenox. Continue famotidine. (2) CHF (congestive heart failure) Current Visit: Yes Status: Suspected Qualifiers: Heart failure chronicity: acute on chronic Plan to address problem: Management as per primary care and cardiology. (3) COPD (chronic obstructive pulmonary disease) with acute bronchitis Current Visit: No Status: Acute Plan to address problem: O2 2 litres via nasal canula. Albuterol/atrovent aerosol treatments q 6 hours. Continue I/V solumedrol. Continue zithromax. Continue S/C Lovenox. Continue famotidine. Subjective Date of service: 05/09/19 Interval history: Patient awake. Resting on 2 litres O2. Says breathing better. Cough is getting better. O2 saturation 95%. Objective Vital Signs - 12hr 05/09/19 05/09/19 05/09/19 05:18 05:19 08:08 Temperature 98.0 F Pulse Rate 55 L 46 L Pulse Rate [ Anterior Bilateral] Respiratory 20 Rate Respiratory Rate [Anterior Bilateral] Blood Pressure 166/69 O2 Sat by Pulse 97 Oximetry 05/09/19 05/09/19 05/09/19 08:20 10:13 12:31 Temperature 98.2 F 98.3 F Pulse Rate 64 58 L Pulse Rate [ 62 Anterior Bilateral] Respiratory 16 18 Rate Respiratory 18 Rate [Anterior Bilateral] Blood Pressure 144/65 139/65 O2 Sat by Pulse 100 98 97 Oximetry Constitutional: no acute distress, alert Eyes: non-icteric ENT: oropharynx moist Neck: supple, no lymphadenopathy Ascultation: Bilateral: diminished breath sounds, other (Prolonged expiratory phase.) Cardiovascular: regular rate and rhythm Gastrointestinal: normoactive bowel sounds, soft, non-tender Integumentary: normal Extremities: no cyanosis, no edema Neurologic: normal mental status, non-focal exam, pupils equal and round, CN II- XII normal Psychiatric: mood appropriate CBC and BMP: 05/05/19 11:10 05/06/19 05:11 ABG, PT/INR, D-dimer: ABG POC ABG pH 7.454 (7.35-7.45) H 05/05/19 11:00 POC ABG pCO2 36.0 (35-45) 05/05/19 11:00 POC ABG pO2 66 (80-105) L 05/05/19 11:00 POC ABG HCO3 25.2 (22-26 mml/L) 05/05/19 11:00 POC ABG Total CO2 26 (23-27mmol/L) 05/05/19 11:00 POC ABG O2 Sat 94 05/05/19 11:00 Abnormal lab findings: Abnormal Labs 05/05/19 05/05/19 05/05/19 11:00 11:10 11:10 RBC 3.53 L [place] % (Auto) 15.5 H Lymph # 1.1 L POC ABG pH 7.454 H POC ABG pO2 66 L Potassium 3.4 L Calcium 8.0 L NT-Pro-B Natriuret Pep Albumin 3.5 L Urine pH 05/05/19 05/05/19 05/06/19 11:10 13:43 05:11 RBC [place] % (Auto) Lymph # POC ABG pH POC ABG pO2 Potassium Calcium 8.2 L NT-Pro-B Natriuret Pep 3759 H Albumin Urine pH 8.0 H Chest x-ray: report reviewed (REPORTED MILD CHF), image reviewed
[2019-05-09] MEDS: TYLENOL PO PRN ×2 (18:08→22:17)
[2019-05-10] MEDS: TYLENOL PO PRN ×2 (05:37→17:16)
[2019-05-10 05:57] LABS: Basophils % (Auto) 0.1 % (0.0-1.8); Hematocrit 34.9 % (30.3-42.9); Hemoglobin 11.7 gm/dl (10.1-14.3); Lymphocytes # (Auto) 1.3 K/mm3 (1.2-5.4); Lymphocytes % (Auto) 16.8 % (13.4-35.0); Mean Corpuscular HGB Conc 34 % (30-34); Mean Corpuscular Volume 93 fl (79-97); Monocytes # (Auto) 0.8 K/mm3 (0.0-0.8); Monocytes % (Auto) 11.1 % (0.0-7.3); Platelet Count 195 K/mm3 (140-440); Red Blood Count 3.77 M/mm3 (3.65-5.03); Red Cell Distribution Width 14.7 % (13.2-15.2)
[2019-05-10 06:26] LABS: BUN/Creatinine Ratio 20; Blood Urea Nitrogen 16 mg/dL (7-17); Calcium 8.3 mg/dL (8.4-10.2); Hemolysis Index 4
--- NOTE | 2019-05-10 08:28 | XRay Report ---
AP CHEST: HISTORY: CHF, cough Compared to 05/05/19. Heart size and pulmonary vessels remain borderline. The lungs are generally clear. No evidence for infiltrate, large pleural effusion or pneumothorax. The interstitium is prominent suggesting underlying nonspecific interstitial lung disease. The aorta is ectatic which is unchanged. IMPRESSION: No acute cardiopulmonary process. Chronic findings as described above.
[2019-05-10] MEDS: PULMICORT IH SCH ×2 (09:08→19:54)
[2019-05-10] MEDS: BROVANA NEBU IH SCH ×2 (09:08→19:54)
--- NOTE | 2019-05-10 10:06 | Progress Note ---
Assessment and Plan COPD exacerbation Pulmonary Htn, moderate on Opsumit as an outpatient Acute on chronic diastolic heart failure Pulmonary Fibrosis Hypertension Weakness/Deconditioned Normal thallium stress test 12/2018. LHC 2014 documents mild obstructive atherosclerosis, normal left ventricle systolic function with ejection fraction 60-65%. RHC 2018documents moderate pulmonary hypertension, mean PA pressure of 35 mmHg. Conservative cardiac management. Subjective Date of service: 05/10/19 Interval history: Patient is resting in bed and appears comfortable. She complains of generalized weakness. Awaits PT evaluation. Stable sinus rhythm, rate 66 on telemetry monitoring. Objective Vital Signs Temp Pulse Pulse Resp Resp BP Pulse Ox 05/10/19 09:28 56 L 18 05/10/19 09:11 97 05/10/19 09:09 57 L 20 05/10/19 08:10 98.0 F 18 166/78 05/10/19 08:08 51 L 05/10/19 04:11 98.0 F 55 L 20 138/67 95 05/09/19 23:19 97.9 F 51 L 20 159/60 98 05/09/19 20:40 68 20 05/09/19 20:32 65 22 95 05/09/19 19:47 98.3 F 63 20 151/74 94 05/09/19 12:31 98.3 F 58 L 18 139/65 97 05/09/19 10:13 98.2 F 64 16 144/65 98 - Physical Examination General: No Apparent Distress HEENT: Positive: PERRL Neck: Positive: trachea midline Cardiac: Positive: Reg Rate and Rhythm Lungs: Positive: Decreased Breath Sounds Neuro: Positive: Grossly Intact, Weakness Abdomen: Skin: Positive: Clear Extremities: Absent: edema - Labs and Meds CBC 05/10/19 Range/Units 05:14 WBC 7.4 (4.5-11.0) K/mm3 RBC 3.77 (3.65-5.03) M/mm3 Hgb 11.7 (10.1-14.3) gm/dl Hct 34.9 (30.3-42.9) % Plt Count 195 (140-440) K/mm3 Lymph # 1.3 (1.2-5.4) K/mm3 [place] # 0.8 (0.0-0.8) K/mm3 Eos # 0.0 (0.0-0.4) K/mm3 Baso # 0.0 (0.0-0.1) K/mm3 Comprehensive Metabolic Panel 05/10/19 Range/Units 05:14 Sodium 143 (137-145) mmol/L Potassium 3.5 L (3.6-5.0) mmol/L Chloride 102.3 (98-107) mmol/L Carbon Dioxide 30 (22-30) mmol/L BUN 16 (7-17) mg/dL Creatinine 0.8 (0.7-1.2) mg/dL Glucose 94 (65-100) mg/dL Calcium 8.3 L (8.4-10.2) mg/dL
[2019-05-10] MEDS: PEPCID PO SCH (10:44)
[2019-05-10] MEDS: SODIUM CHLORIDE FLUSH SYRINGE 10 ML IV SCH ×2 (10:44→21:28)
[2019-05-10] MEDS: LASIX PO SCH (10:44)
[2019-05-10] MEDS: SOLU-Medrol IV SCH ×2 (10:44→19:33)
[2019-05-10] MEDS: ZITHROMAX PO SCH (10:44)
[2019-05-10] MEDS: LOVENOX SUB-Q SCH (10:46)
--- NOTE | 2019-05-10 11:02 | Progress Note ---
Assessment and Plan Assessment and plan: Acute on chronic hypoxemic respiratory failure. Continue O2 to maintain sats greater than 92%. Etiology secondary to CHF exacerbation, Pulmonary hypertension and COPD exacerbation. Pulmonary consultation pending. Moderate pulmonary hypertension. Pulmonary fibrosis/ILD. Pulmonary following. Repeat chest x-ray with no acute findings. Acute COPD exacerbation. Continue breathing treatments. Continue systemic steroids. 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 Continue Lasix, metoprolol discontinued secondary to bradycardia. Cardiology following. [place] sinus bradycardia. Hypertension. Resume antihypertensive medications. GERD. Continue PPI. Disposition. Await PT evaluation. History Interval history: Patient still reports shortness of breath slightly improved however. Hospitalist Physical - Constitutional Vitals: Temp Pulse Resp BP Pulse Ox 98.0 F 56 L 18 166/78 97 05/10/19 08:10 05/10/19 09:28 05/10/19 09:28 05/10/19 08:10 05/10/19 09:11 General appearance: Present: no acute distress - EENT Eyes: Present: PERRL, EOM intact ENT: hearing intact, clear oral mucosa, dentition normal - Neck Neck: Present: supple, normal ROM - Respiratory Respiratory effort: normal Respiratory: bilateral: CTA - Cardiovascular Rhythm: regular Heart Sounds: Present: S1 & S2. Absent: gallop, rub - Extremities Extremities: no ischemia, No edema, Full ROM - Abdominal General gastrointestinal: soft, non-tender, non-distended, normal bowel sounds - Integumentary Integumentary: Present: clear, warm, dry - Neurologic Neurologic: CNII-XII intact, moves all extremities Results - Labs CBC & Chem 7: 05/10/19 05:14 05/10/19 05:14 Labs: Laboratory Last Values WBC 7.4 K/mm3 (4.5-11.0) 05/10/19 05:14 RBC 3.77 M/mm3 (3.65-5.03) 05/10/19 05:14 Hgb 11.7 gm/dl (10.1-14.3) 05/10/19 05:14 Hct 34.9 % (30.3-42.9) 05/10/19 05:14 MCV 93 fl (79-97) 05/10/19 05:14 MCH 31 pg (28-32) 05/10/19 05:14 MCHC 34 % (30-34) 05/10/19 05:14 RDW 14.7 % (13.2-15.2) 05/10/19 05:14 Plt Count 195 K/mm3 (140-440) 05/10/19 05:14 Lymph % (Auto) 16.8 % (13.4-35.0) 05/10/19 05:14 [place] % (Auto) 11.1 % (0.0-7.3) H 05/10/19 05:14 Eos % (Auto) 0.0 % (0.0-4.3) 05/10/19 05:14 Baso % (Auto) 0.1 % (0.0-1.8) 05/10/19 05:14 Lymph # 1.3 K/mm3 (1.2-5.4) 05/10/19 05:14 [place] # 0.8 K/mm3 (0.0-0.8) 05/10/19 05:14 Eos # 0.0 K/mm3 (0.0-0.4) 05/10/19 05:14 Baso # 0.0 K/mm3 (0.0-0.1) 05/10/19 05:14 Seg Neutrophils % 72.0 % (40.0-70.0) H 05/10/19 05:14 Seg Neutrophils # 5.4 K/mm3 (1.8-7.7) 05/10/19 05:14 APTT 30.3 Sec. (24.2-36.6) 05/05/19 11:10 POC ABG pH 7.454 (7.35-7.45) H 05/05/19 11:00 POC ABG pCO2 36.0 (35-45) 05/05/19 11:00 POC ABG pO2 66 (80-105) L 05/05/19 11:00 POC ABG HCO3 25.2 (22-26 mml/L) 05/05/19 11:00 POC ABG Total CO2 26 (23-27mmol/L) 05/05/19 11:00 POC ABG O2 Sat 94 05/05/19 11:00 POC ABG Base Excess 1 ((-2) - (+3)mmol/L) 05/05/19 11:00 28 % 06/12/19 11:00 Sodium 143 mmol/L (137-145) 05/10/19 05:14 Potassium 3.5 mmol/L (3.6-5.0) L 05/10/19 05:14 Chloride 102.3 mmol/L (98-107) 05/10/19 05:14 Carbon Dioxide 30 mmol/L (22-30) 05/10/19 05:14 14 mmol/L 05/10/19 05:14 BUN 16 mg/dL (7-17) 05/10/19 05:14 0.8 mg/dL (0.7-1.2) 05/10/19 05:14 Estimated GFR > 60 ml/min 05/10/19 05:14 20 % 05/10/19 05:14 Glucose 94 mg/dL (65-100) 05/10/19 05:14 Lactic Acid 1.90 mmol/L (0.7-2.0) 05/05/19 11:10 Calcium 8.3 mg/dL (8.4-10.2) L 05/10/19 05:14 Magnesium 1.70 mg/dL (1.7-2.3) 05/05/19 15:41 0.60 mg/dL (0.1-1.2) 05/05/19 11:10 AST 28 units/L (5-40) 05/05/19 11:10 ALT 12 units/L (7-56) 05/05/19 11:10 55 units/L (35-129) 05/05/19 11:10 NT-Pro-B Natriuret Pep 3759 pg/mL (0-900) H 05/05/19 11:10 6.8 g/dL (6.3-8.2) 05/05/19 11:10 3.5 g/dL (3.9-5) L 05/05/19 11:10 1.1 % 05/05/19 11:10 TSH 0.564 mlU/mL (0.270-4.200) 05/05/19 15:41 Free T4 0.85 ng/dL (0.76-1.46) 05/05/19 15:41 Colorless (Yellow) 05/05/19 13:43 Clear (Clear) 05/05/19 13:43 8.0 (5.0-7.0) H 05/05/19 13:43 Ur Specific [place] 1.004 (1.003-1.030) 05/05/19 13:43 <15 mg/dl mg/dL (Negative) 05/05/19 13:43 Neg mg/dL (Negative) 05/05/19 13:43 Neg mg/dL (Negative) 05/05/19 13:43 Sm (Negative) 05/05/19 13:43 Neg (Negative) 05/05/19 13:43 Neg (Negative) 05/05/19 13:43 < 2.0 mg/dL (<2.0) 05/05/19 13:43 Ur Leukocyte Esterase Neg (Negative) 05/05/19 13:43 < 1.0 /HPF (0.0-6.0) 05/05/19 13:43 1.0 /HPF (0.0-6.0) 05/05/19 13:43 U Epithel Cells (Auto) < 1.0 /HPF (0-13.0) 05/05/19 13:43 1+ /HPF (Negative) 05/05/19 13:43 Few /HPF 05/05/19 13:43 Active Medications - Current Medications Current Medications: Generic Name Dose Route Start Last Admin Trade Name Freq PRN Reason Stop Dose Admin Acetaminophen 650 mg 05/05/19 15:17 05/10/19 05:37 Tylenol PO 650 mg Q4H PRN Administration Pain MILD(1-3)/Fever >100.5/MERRITT Albuterol 2.5 mg 05/05/19 15:17 Proventil IH Q4HRT PRN Shortness Of Breath Arformoterol Tartrate 15 mcg 05/07/19 20:00 05/10/19 09:08 Brovana Nebu IH 15 mcg Q12HRT JAKE Administration Azithromycin 250 mg 05/08/19 11:00 05/10/19 10:44 Zithromax PO 250 mg QDAY JAKE Administration Budesonide 0.5 mg 05/07/19 20:00 05/10/19 09:08 Pulmicort IH 0.5 mg Q12HRT JAKE Administration Enoxaparin Sodium 40 mg 05/08/19 10:00 05/10/19 10:46 Lovenox SUB-Q Not Given QDAY@1000 JAKE Famotidine 20 mg 05/08/19 10:00 05/10/19 10:44 Pepcid PO 20 mg QDAY JAKE Administration Furosemide 20 mg 05/07/19 13:00 05/10/19 10:44 Lasix PO 20 mg QDAY JAKE Administration Hydrocodone Bit/Homatropine Methylb 10 ml 05/05/19 19:37 05/08/19 22:15 Hydromet PO 10 ml Q6H PRN Administration Cough Methylprednisolone Sodium Succinate 40 mg 05/07/19 19:00 05/10/19 10:44 Solu-Medrol IV Not Given Q12H JAKE Miscellaneous Medication 10 mg 05/06/19 10:00 Macitentan (Nf) PO DAILY JAKE Miscellaneous Medication 25 mg 05/06/19 10:00 Paroxetine Cr (Nf) PO QAM JAKE Ondansetron HCl 4 mg 05/05/19 15:17 Zofran IV Q8H PRN Nausea And Vomiting Oxycodone/Acetaminophen 1 tab 05/08/19 05:14 Percocet 5/325 PO Q8H PRN Pain, Moderate (4-6) Sodium Chloride 10 ml 05/05/19 22:00 05/10/19 10:44 Sodium Chloride Flush Syringe 10 Ml IV 10 ml BID JAKE Administration Sodium Chloride 10 ml 05/05/19 15:17 05/06/19 06:44 Sodium Chloride Flush Syringe 10 Ml IV 10 ml PRN PRN Administration LINE FLUSH Nutrition/Malnutrition Assess - Dietary Evaluation Nutrition/Malnutrition Findings: Nutrition Notes Start: 05/09/19 08:45 Freq: Status: Active Protocol: Document 05/09/19 08:45 XAVIER (Rec: 05/09/19 08:46 XAVIER [email or web address]) Nutrition Notes Need for Assessment generated from: MD Order Initial or Follow up Brief Note Subjective/Other Information RD consulted for ONS suitable for pt that is lactose intolerant. ONS already ordered by RN. Will check for ONS tolerance. Nutrition Intervention Follow-Up By: 05/11/19 Additional Comments F/U: ONS tolerance; need for clear ONS
--- NOTE | 2019-05-10 17:42 | Progress Note ---
Assessment and Plan Patient Resting on 2 litres O2. Says breathing better. Cough is getting better. O2 saturation 97%. - Patient Problems (1) Respiratory failure Current Visit: Yes Status: Acute Qualifiers: Chronicity: acute on chronic Plan to address problem: O2 2 litres via nasal canula. Albuterol/atrovent aerosol treatments q 6 hours. Continue I/V solumedrol. Continue Zithromax. Continue S/C Lovenox. Continue famotidine. (2) CHF (congestive heart failure) Current Visit: Yes Status: Suspected Qualifiers: Heart failure chronicity: acute on chronic Plan to address problem: Management as per primary care and cardiology. (3) COPD (chronic obstructive pulmonary disease) with acute bronchitis Current Visit: No Status: Acute Plan to address problem: O2 2 litres via nasal canula. Albuterol/atrovent aerosol treatments q 6 hours. Continue I/V solumedrol. Continue zithromax. Continue S/C Lovenox. Continue famotidine. Subjective Date of service: 05/10/19 Interval history: Patient Resting on 2 litres O2. Says breathing better. Cough is getting better. O2 saturation 97%. Objective Vital Signs - 12hr 05/10/19 05/10/19 05/10/19 08:08 08:10 09:09 Temperature 98.0 F Pulse Rate 51 L Pulse Rate [ 57 L Anterior Bilateral] Respiratory 18 Rate Respiratory 20 Rate [Anterior Bilateral] Blood Pressure 166/78 O2 Sat by Pulse Oximetry 05/10/19 05/10/19 09:11 09:28 Temperature Pulse Rate Pulse Rate [ 56 L Anterior Bilateral] Respiratory Rate Respiratory 18 Rate [Anterior Bilateral] Blood Pressure O2 Sat by Pulse 97 Oximetry Constitutional: no acute distress, alert Eyes: non-icteric ENT: oropharynx moist Neck: supple, no lymphadenopathy Ascultation: Bilateral: diminished breath sounds, other (Prolonged expiratory phase.) Cardiovascular: regular rate and rhythm Gastrointestinal: normoactive bowel sounds, soft, non-tender Integumentary: normal Extremities: no cyanosis, no edema Neurologic: normal mental status, non-focal exam, pupils equal and round, CN II- XII normal Psychiatric: mood appropriate CBC and BMP: 05/10/19 05:14 05/10/19 05:14 ABG, PT/INR, D-dimer: ABG POC ABG pH 7.454 (7.35-7.45) H 05/05/19 11:00 POC ABG pCO2 36.0 (35-45) 05/05/19 11:00 POC ABG pO2 66 (80-105) L 05/05/19 11:00 POC ABG HCO3 25.2 (22-26 mml/L) 05/05/19 11:00 POC ABG Total CO2 26 (23-27mmol/L) 05/05/19 11:00 POC ABG O2 Sat 94 05/05/19 11:00 Abnormal lab findings: Abnormal Labs 05/05/19 05/05/19 05/05/19 11:00 11:10 11:10 RBC 3.53 L [place] % (Auto) 15.5 H Lymph # 1.1 L Seg Neutrophils % POC ABG pH 7.454 H POC ABG pO2 66 L Potassium 3.4 L Calcium 8.0 L NT-Pro-B Natriuret Pep Albumin 3.5 L Urine pH 05/05/19 05/05/19 05/06/19 11:10 13:43 05:11 RBC [place] % (Auto) Lymph # Seg Neutrophils % POC ABG pH POC ABG pO2 Potassium Calcium 8.2 L NT-Pro-B Natriuret Pep 3759 H Albumin Urine pH 8.0 H 05/10/19 05/10/19 05:14 05:14 RBC [place] % (Auto) 11.1 H Lymph # Seg Neutrophils % 72.0 H POC ABG pH POC ABG pO2 Potassium 3.5 L Calcium 8.3 L NT-Pro-B Natriuret Pep Albumin Urine pH Chest x-ray: report reviewed, image reviewed (No acute cardiopulmonary process.)
[2019-05-10] MEDS: HYDROMET PO PRN (21:28)
[2019-05-11] MEDS: SOLU-Medrol IV SCH ×2 (06:00→19:07)
[2019-05-11] MEDS: BROVANA NEBU IH SCH ×2 (08:35→20:07)
[2019-05-11] MEDS: PULMICORT IH SCH ×2 (08:35→20:08)
[2019-05-11] MEDS: LOVENOX SUB-Q SCH (10:06)
[2019-05-11] MEDS: SODIUM CHLORIDE FLUSH SYRINGE 10 ML IV SCH ×2 (10:08→21:35)
[2019-05-11] MEDS: PEPCID PO SCH (10:08)
[2019-05-11] MEDS: ZITHROMAX PO SCH (10:08)
[2019-05-11] MEDS: LASIX PO SCH (10:08)
--- NOTE | 2019-05-11 13:21 | Progress Note ---
Assessment and Plan COPD exacerbation Pulmonary Htn, moderate on Opsumit as an outpatient Acute on chronic diastolic heart failure Pulmonary Fibrosis Hypertension Weakness/Deconditioned Normal thallium stress test 12/2018. [facility] 2014 documents mild obstructive atherosclerosis, normal left ventricle systolic function with ejection fraction 60-65%. [facility] 2018documents moderate pulmonary hypertension, mean PA pressure of 35 mmHg. Conservative cardiac management. Subjective Date of service: 05/11/19 Interval history: Patient is resting in bed and has no cardiac complaints. Objective Vital Signs Temp Pulse Pulse Resp Resp BP Pulse Ox 05/11/19 08:57 67 18 05/11/19 08:56 97.3 F L 70 20 114/75 100 05/11/19 08:37 95 05/11/19 08:35 75 18 05/11/19 04:25 98.2 F 54 L 20 120/71 90 05/10/19 23:42 98.4 F 54 L 18 125/64 93 05/10/19 22:00 77 05/10/19 20:10 74 18 05/10/19 19:58 99 05/10/19 19:55 72 18 05/10/19 19:53 98.0 F 82 22 129/94 94 05/10/19 19:36 20 05/10/19 17:00 98.0 F 18 148/77 - Physical Examination General: No Apparent Distress HEENT: Positive: PERRL Neck: Positive: trachea midline Cardiac: Positive: Reg Rate and Rhythm Lungs: Positive: Decreased Breath Sounds Neuro: Positive: Grossly Intact, Weakness Abdomen: Skin: Positive: Clear Extremities: Absent: edema
[2019-05-11] MEDS: TYLENOL PO PRN (13:41)
[2019-05-11] MEDS: PERCOCET 5/325 PO PRN (16:34)
--- NOTE | 2019-05-11 17:23 | Progress Note ---
Assessment and Plan Assessment and plan: --Acute on chronic hypoxemic respiratory failure: Continue O2 to maintain sats greater than 92%. Etiology secondary to CHF exacerbation, Pulmonary hypertension and COPD exacerbation. Pulmonary consultation pending. --Moderate pulmonary hypertension: Management per pulmonary --Pulmonary fibrosis/ILD. Pulmonary following. Repeat chest x-ray with no acute findings. --Acute COPD exacerbation. Continue breathing treatments. Continue systemic steroids. --Hypertrophic obstructive cardiomyopathy with chronic diastolic heart failure. 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 Continue Lasix, metoprolol discontinued secondary to bradycardia. Cardiology following. --Sinus bradycardia; mild improvement Hold beta blockers --Hypertension; well controlled Cont antihypertensive medications. --GERD. Continue PPI. Consults and recommendations noted and appreciated follow-up pulmonary evaluation and recommendations Possible discharge in 1-2 days if stable Follow PT evaluation and recommendations Plan of care is reviewed with the patient and family member at the bedside Also reviewed with the patient's nurse and case management History Interval history: Patient seen and examined this medical records reviewed Patient feels better, continues to have mild cough and congestion Alert awake oriented Vital signs noted Hospitalist Physical - Constitutional Vitals: Temp Pulse Resp BP Pulse Ox 97.3 F L 66 20 114/75 100 05/11/19 08:56 05/11/19 10:00 05/11/19 16:34 05/11/19 08:56 05/11/19 08:56 General appearance: Present: no acute distress, well-nourished - EENT Eyes: Present: PERRL, EOM intact - Neck Neck: Present: supple, normal ROM - Respiratory Respiratory effort: normal Respiratory: bilateral: diminished, wheezing, negative: rales, rhonchi - Cardiovascular Rhythm: regular Heart Sounds: Present: S1 & S2 - Extremities Extremities: no ischemia, No edema - Abdominal General gastrointestinal: soft, non-tender, non-distended, normal bowel sounds - Integumentary Integumentary: Present: clear, warm - Psychiatric Psychiatric: appropriate mood/affect, cooperative - Neurologic Neurologic: moves all extremities Results - Labs CBC & Chem 7: 05/10/19 05:14 05/10/19 05:14 Labs: Laboratory Last Values WBC 7.4 K/mm3 (4.5-11.0) 05/10/19 05:14 RBC 3.77 M/mm3 (3.65-5.03) 05/10/19 05:14 Hgb 11.7 gm/dl (10.1-14.3) 05/10/19 05:14 Hct 34.9 % (30.3-42.9) 05/10/19 05:14 MCV 93 fl (79-97) 05/10/19 05:14 MCH 31 pg (28-32) 05/10/19 05:14 MCHC 34 % (30-34) 05/10/19 05:14 RDW 14.7 % (13.2-15.2) 05/10/19 05:14 Plt Count 195 K/mm3 (140-440) 05/10/19 05:14 Lymph % (Auto) 16.8 % (13.4-35.0) 05/10/19 05:14 [place] % (Auto) 11.1 % (0.0-7.3) H 05/10/19 05:14 Eos % (Auto) 0.0 % (0.0-4.3) 05/10/19 05:14 Baso % (Auto) 0.1 % (0.0-1.8) 05/10/19 05:14 Lymph # 1.3 K/mm3 (1.2-5.4) 05/10/19 05:14 [place] # 0.8 K/mm3 (0.0-0.8) 05/10/19 05:14 Eos # 0.0 K/mm3 (0.0-0.4) 05/10/19 05:14 Baso # 0.0 K/mm3 (0.0-0.1) 05/10/19 05:14 Seg Neutrophils % 72.0 % (40.0-70.0) H 05/10/19 05:14 Seg Neutrophils # 5.4 K/mm3 (1.8-7.7) 05/10/19 05:14 APTT 30.3 Sec. (24.2-36.6) 05/05/19 11:10 POC ABG pH 7.454 (7.35-7.45) H 05/05/19 11:00 POC ABG pCO2 36.0 (35-45) 05/05/19 11:00 POC ABG pO2 66 (80-105) L 05/05/19 11:00 POC ABG HCO3 25.2 (22-26 mml/L) 05/05/19 11:00 POC ABG Total CO2 26 (23-27mmol/L) 05/05/19 11:00 POC ABG O2 Sat 94 05/05/19 11:00 POC ABG Base Excess 1 ((-2) - (+3)mmol/L) 05/05/19 11:00 28 % 05/05/19 11:00 Sodium 143 mmol/L (137-145) 05/10/19 05:14 Potassium 3.5 mmol/L (3.6-5.0) L 05/10/19 05:14 Chloride 102.3 mmol/L (98-107) 05/10/19 05:14 Carbon Dioxide 30 mmol/L (22-30) 05/10/19 05:14 14 mmol/L 05/10/19 05:14 BUN 16 mg/dL (7-17) 05/10/19 05:14 0.8 mg/dL (0.7-1.2) 05/10/19 05:14 Estimated GFR > 60 ml/min 05/10/19 05:14 20 % 05/10/19 05:14 Glucose 94 mg/dL (65-100) 05/10/19 05:14 Lactic Acid 1.90 mmol/L (0.7-2.0) 05/05/19 11:10 Calcium 8.3 mg/dL (8.4-10.2) L 05/10/19 05:14 Magnesium 1.70 mg/dL (1.7-2.3) 05/05/19 15:41 0.60 mg/dL (0.1-1.2) 05/05/19 11:10 AST 28 units/L (5-40) 05/05/19 11:10 ALT 12 units/L (7-56) 05/05/19 11:10 55 units/L (35-129) 05/05/19 11:10 NT-Pro-B Natriuret Pep 3759 pg/mL (0-900) H 05/05/19 11:10 6.8 g/dL (6.3-8.2) 05/05/19 11:10 3.5 g/dL (3.9-5) L 05/05/19 11:10 1.1 % 05/05/19 11:10 TSH 0.564 mlU/mL (0.270-4.200) 05/05/19 15:41 Free T4 0.85 ng/dL (0.76-1.46) 05/05/19 15:41 Colorless (Yellow) 05/05/19 13:43 Clear (Clear) 05/05/19 13:43 8.0 (5.0-7.0) H 05/05/19 13:43 Ur Specific [place] 1.004 (1.003-1.030) 05/05/19 13:43 <15 mg/dl mg/dL (Negative) 05/05/19 13:43 Neg mg/dL (Negative) 05/05/19 13:43 Neg mg/dL (Negative) 05/05/19 13:43 Sm (Negative) 05/05/19 13:43 Neg (Negative) 05/05/19 13:43 Neg (Negative) 05/05/19 13:43 < 2.0 mg/dL (<2.0) 05/05/19 13:43 Ur Leukocyte Esterase Neg (Negative) 05/05/19 13:43 < 1.0 /HPF (0.0-6.0) 05/05/19 13:43 1.0 /HPF (0.0-6.0) 05/05/19 13:43 U Epithel Cells (Auto) < 1.0 /HPF (0-13.0) 05/05/19 13:43 1+ /HPF (Negative) 05/05/19 13:43 Few /HPF 05/05/19 13:43 Active Medications - Current Medications Current Medications: Generic Name Dose Route Start Last Admin Trade Name Freq PRN Reason Stop Dose Admin Acetaminophen 650 mg 05/05/19 15:17 05/11/19 13:41 Tylenol PO 650 mg Q4H PRN Administration Pain MILD(1-3)/Fever >100.5/MERRITT Albuterol 2.5 mg 05/05/19 15:17 Proventil IH Q4HRT PRN Shortness Of Breath Arformoterol Tartrate 15 mcg 05/07/19 20:00 05/11/19 08:35 Brovana Nebu IH 15 mcg Q12HRT JAKE Administration Azithromycin 250 mg 05/08/19 11:00 05/11/19 10:08 Zithromax PO 05/12/19 10:01 250 mg QDAY JAKE Administration Budesonide 0.5 mg 05/07/19 20:00 05/11/19 08:35 Pulmicort IH 0.5 mg Q12HRT JAKE Administration Enoxaparin Sodium 40 mg 05/08/19 10:00 05/11/19 10:06 Lovenox SUB-Q Not Given QDAY@1000 JAKE Famotidine 20 mg 05/08/19 10:00 05/11/19 10:08 Pepcid PO 20 mg QDAY JAKE Administration Furosemide 20 mg 05/07/19 13:00 05/11/19 10:08 Lasix PO 20 mg QDAY JAKE Administration Hydrocodone Bit/Homatropine Methylb 10 ml 05/05/19 19:37 05/10/19 21:28 Hydromet PO 10 ml Q6H PRN Administration Cough Methylprednisolone Sodium Succinate 40 mg 05/07/19 19:00 05/11/19 06:00 Solu-Medrol IV Not Given Q12H [facility] Miscellaneous Medication 10 mg 05/06/19 10:00 Macitentan (Nf) PO DAILY [facility] Miscellaneous Medication 25 mg 05/06/19 10:00 Paroxetine Cr (Nf) PO QAM JAKE Ondansetron HCl 4 mg 05/05/19 15:17 Zofran IV Q8H PRN Nausea And Vomiting Oxycodone/Acetaminophen 1 tab 05/08/19 05:14 05/11/19 16:34 Percocet 5/325 PO 1 tab Q8H PRN Administration Pain, Moderate (4-6) Sodium Chloride 10 ml 05/05/19 22:00 05/11/19 10:08 Sodium Chloride Flush Syringe 10 Ml IV 10 ml BID JAKE Administration Sodium Chloride 10 ml 05/05/19 15:17 05/06/19 06:44 Sodium Chloride Flush Syringe 10 Ml IV 10 ml PRN PRN Administration LINE FLUSH Nutrition/Malnutrition Assess - Dietary Evaluation Nutrition/Malnutrition Findings: Nutrition Notes Start: 05/09/19 08:45 Freq: Status: Active Protocol: Document 05/11/19 15:30 RM (Rec: 05/11/19 15:38 RM [id number]) Nutrition Notes Initial or Follow up Assessment Current Diagnosis COPD,Hypertension,Heart Failure Other Pertinent Diagnosis GERD Current Diet Cardiac w/Ensure Enlive Vanilla TID Labs/Tests Reviewed Pertinent Medications Joy Height 5 ft 5 in Weight 64.7 kg [place] Body Weight (kg) 56.81 BMI 23.7 Subjective/Other Information Pt stated that her appetite is poor and that she eats 1/3 of her meals. Also stated that she drinks the Ensure she receives. Noted Ensure clear at bedside. Pt stated that she can't drink regular ONS d/t it making her sick in the past . Percent of energy/protein needs met: 81%/70% Burn Absent Trauma Absent #1 Nutrition Diagnosis Inadequate oral intake Etiology decreased appetite As Evidenced by Signs and Symptoms pt statement that she eats 1/3 of her meals Is patient on ventilator? No Is Patient Ambulatory and/or Out of Bed Yes REE-([facility]-ambulatory/OOB) [ 1466.244 NUTR.[id number]] Calculation Used for Recommendations [facility] Additional Notes Protein Needs:65-78g (1-1.2g/ kg) Fluid Needs: 1 ml/kcal Nutrition Intervention Change Diet Order: Continue current Add Supplement/Snack (indicate name/kcal D/C Ensure Enlive. Add Ensure /protein ) Clear BID. Provides kCal: 480 Provides Protein (gm) 16 Goal #1 Meet at least 75% of calorie and protein needs via PO and ONS intakes Anticipated Discharge Needs: Cardiac diet Follow-Up By: 05/14/19 Additional Comments Follow for PO and ONS intakes
--- NOTE | 2019-05-11 17:35 | Progress Note ---
Assessment and Plan Patient not using O2 as recommended. She presently on room air. O2 saturation 95%. Patient says breathing better. No complain of chest pain. Patient complains cough. - Patient Problems (1) Respiratory failure Current Visit: Yes Status: Acute Qualifiers: Chronicity: acute on chronic Plan to address problem: O2 2 litres via nasal canula. Albuterol/atrovent aerosol treatments q 6 hours. Continue I/V solumedrol. Continue Zithromax. Continue S/C Lovenox. Continue famotidine. (2) CHF (congestive heart failure) Current Visit: Yes Status: Suspected Qualifiers: Heart failure chronicity: acute on chronic Plan to address problem: Management as per primary care and cardiology. (3) COPD (chronic obstructive pulmonary disease) with acute bronchitis Current Visit: No Status: Acute Plan to address problem: O2 2 litres via nasal canula. Albuterol/atrovent aerosol treatments q 6 hours. Continue I/V solumedrol. Continue zithromax. Continue S/C Lovenox. Continue famotidine. Subjective Date of service: 05/11/19 Interval history: Patient not using O2 as recommended. She presently on room air. O2 saturation 95%. Patient says breathing better. No complain of chest pain. Patient complains cough. Objective Vital Signs - 12hr 05/11/19 05/11/19 05/11/19 08:35 08:37 08:56 Temperature 97.3 F L Pulse Rate 70 Pulse Rate [ 75 Anterior Bilateral] Respiratory 20 Rate Respiratory 18 Rate [Anterior Bilateral] Blood Pressure 114/75 O2 Sat by Pulse 95 100 Oximetry 05/11/19 05/11/19 05/11/19 08:57 10:00 13:41 Temperature Pulse Rate 66 Pulse Rate [ 67 Anterior Bilateral] Respiratory 18 20 Rate Respiratory 18 Rate [Anterior Bilateral] Blood Pressure O2 Sat by Pulse Oximetry 05/11/19 05/11/19 14:41 16:34 Temperature Pulse Rate Pulse Rate [ Anterior Bilateral] Respiratory 18 20 Rate Respiratory Rate [Anterior Bilateral] Blood Pressure O2 Sat by Pulse Oximetry Constitutional: no acute distress, alert Eyes: non-icteric ENT: oropharynx moist Neck: supple, no lymphadenopathy Ascultation: Bilateral: diminished breath sounds, other (Prolonged expiratory phase.) Cardiovascular: regular rate and rhythm Gastrointestinal: normoactive bowel sounds, soft, non-tender Integumentary: normal Extremities: no cyanosis, no edema Neurologic: normal mental status, non-focal exam, pupils equal and round, CN II- XII normal Psychiatric: mood appropriate CBC and BMP: 05/10/19 05:14 05/10/19 05:14 ABG, PT/INR, D-dimer: ABG POC ABG pH 7.454 (7.35-7.45) H 05/05/19 11:00 POC ABG pCO2 36.0 (35-45) 05/05/19 11:00 POC ABG pO2 66 (80-105) L 05/05/19 11:00 POC ABG HCO3 25.2 (22-26 mml/L) 05/05/19 11:00 POC ABG Total CO2 26 (23-27mmol/L) 05/05/19 11:00 POC ABG O2 Sat 94 05/05/19 11:00 Abnormal lab findings: Abnormal Labs 05/05/19 05/05/19 05/05/19 11:00 11:10 11:10 RBC 3.53 L [place] % (Auto) 15.5 H Lymph # 1.1 L Seg Neutrophils % POC ABG pH 7.454 H POC ABG pO2 66 L Potassium 3.4 L Calcium 8.0 L NT-Pro-B Natriuret Pep Albumin 3.5 L Urine pH 05/05/19 05/05/19 05/06/19 11:10 13:43 05:11 RBC [place] % (Auto) Lymph # Seg Neutrophils % POC ABG pH POC ABG pO2 Potassium Calcium 8.2 L NT-Pro-B Natriuret Pep 3759 H Albumin Urine pH 8.0 H 05/10/19 05/10/19 05:14 05:14 RBC [place] % (Auto) 11.1 H Lymph # Seg Neutrophils % 72.0 H POC ABG pH POC ABG pO2 Potassium 3.5 L Calcium 8.3 L NT-Pro-B Natriuret Pep Albumin Urine pH
[2019-05-12] MEDS: SOLU-Medrol IV SCH (06:03)
[2019-05-12] MEDS: BROVANA NEBU IH SCH (08:31)
[2019-05-12] MEDS: PULMICORT IH SCH (08:31)
[2019-05-12 08:34] VITALS: BP 93/60
[2019-05-12] MEDS: ZITHROMAX PO SCH (09:32)
[2019-05-12] MEDS: PEPCID PO SCH (09:32)
[2019-05-12] MEDS: LASIX PO SCH (09:32)
[2019-05-12] MEDS: LOVENOX SUB-Q SCH (09:32)
[2019-05-12] MEDS: SODIUM CHLORIDE FLUSH SYRINGE 10 ML IV SCH (09:33)
[2019-05-12] MEDS: PERCOCET 5/325 PO PRN (09:37)
--- NOTE | 2019-05-12 10:16 | Progress Note ---
<MARIBELL MENJIVAR - Last Filed: 05/12/19 10:15> Assessment and Plan COPD exacerbation Pulmonary Htn, moderate on Opsumit as an outpatient Acute on chronic diastolic heart failure Pulmonary Fibrosis Hypertension Weakness/Deconditioned Normal thallium stress test 12/2018. [facility] 2014 documents mild obstructive atherosclerosis, normal left ventricle systolic function with ejection fraction 60-65%. [facility] 2018documents moderate pulmonary hypertension, mean PA pressure of 35 mmHg. Conservative cardiac management. Subjective Date of service: 05/12/19 Interval history: Patient is resting in bed and has no cardiac complaints. Objective Vital Signs Temp Pulse Pulse Resp Resp BP Pulse Ox 05/12/19 09:37 20 05/12/19 08:50 86 18 05/12/19 08:34 96 05/12/19 08:31 65 16 05/12/19 08:09 98.8 F 18 93/60 05/12/19 04:06 98.0 F 65 18 110/66 94 05/11/19 23:59 80 05/11/19 23:31 98.0 F 75 18 88/50 96 05/11/19 20:35 91 H 18 05/11/19 20:10 89 18 96 05/11/19 19:40 97.8 F 39 L 18 96/72 96 05/11/19 17:34 20 05/11/19 16:34 20 05/11/19 16:08 98.0 F 76 18 102/60 97 05/11/19 14:41 18 05/11/19 13:41 20 - Physical Examination General: No Apparent Distress HEENT: Positive: PERRL Neck: Positive: trachea midline Cardiac: Positive: Reg Rate and Rhythm Lungs: Positive: Decreased Breath Sounds Neuro: Positive: Grossly Intact, Weakness Abdomen: Extremities: Absent: edema <LARRY RUSSELL - Last Filed: 05/12/19 12:38> Assessment and Plan I have seen and evaluated the patient is discharged as planned. Patient is a history of COPD, moderate pulmonary hypertension and pulmonary fibrosis. The patient also has acute on chronic diastolic heart failure. At this time continue maximal medical therapy for blood pressure. Recommend gentle diuresis as needed Objective Vital Signs Temp Pulse Pulse Resp Resp BP Pulse Ox 05/12/19 10:00 76 05/12/19 09:37 20 05/12/19 08:50 86 18 05/12/19 08:34 96 06/19/19 08:31 65 16 05/12/19 08:09 98.8 F 18 93/60 05/12/19 04:06 98.0 F 65 18 110/66 94 05/11/19 23:59 80 05/11/19 23:31 98.0 F 75 18 88/50 96 05/11/19 20:35 91 H 18 05/11/19 20:10 89 18 96 05/11/19 19:40 97.8 F 39 L 18 96/72 96 05/11/19 17:34 20 05/11/19 16:34 20 05/11/19 16:08 98.0 F 76 18 102/60 97 05/11/19 14:41 18 05/11/19 13:41 20
--- NOTE | 2019-05-12 15:43 | Discharge Summary ---
Providers - Providers Date of Admission: 05/05/19 15:17 Date of discharge: 05/12/19 Attending physician: GABRIELLA LUZ 05/05/19 15:32 Consult to Physician [CONS] Routine Comment: Consulting Provider: ADAM BURCIAGA Physician Instructions: Reason For Exam: chf 05/06/19 11:43 Consult to Physician [CONS] Routine Comment: Consulting Provider: ANAND HOUSTON Physician Instructions: Reason For Exam: COPD exacerbation 05/06/19 12:53 Consult to Physician [CONS] Routine Comment: Consulting Provider: QUANG BRUNO Physician Instructions: Reason For Exam: copd exac 05/07/19 12:27 Physical Therapy Evaluation and Treat [CONS] Routine Comment: Reason For Exam: Evaluate for rehab, mobility... 05/08/19 17:58 Consult to Dietitian/Nutrition [CONS] Routine Physician Instructions: Reason For Exam: Reason for Consult: NEED SUPPLEMENT/LACTOSE INTOLERANCE 05/10/19 11:01 Physical Therapy Evaluation and Treat [CONS] Routine Comment: Reason For Exam: deconditioning Primary care physician: CASE REPAIRER Hospitalization Reason for admission: worsening shortness of breath of 2 days duration Condition: Fair Pertinent studies: Chest x-ray; mild CHF Echocardiogram; mild concentric LVH systolic function is normal EF 65-70% improved. Impaired relaxation of left ventricle, possible diastolic congestive heart failure Hospital course: 78 YO Female with HTN, GERD, OA, COPD, Chronic Respiratory Failure on 2L Home Oxygen via [place] was admitted through emergency room with worsening shortness of breath and nonproductive cough of 2 days' duration . Patient was evaluated and admitted to the hospital symptomatically managed evaluated by pulmonary and cardiology is, medications optimizedPatient was in acute on chronic hypoxemic respiratory failure secondary to acute on chronic diastolic congestive heart failure as well due to acute exacerbation of COPD .Patient managed with oxygen therapy to emphasize more than 90% tapering dose of IV steroids IV antibiotics cough medicine inhalation steroidsPatient's symptoms significantly improved She is comfortable in no new complaints vital signs stable physical examination at discharge is unremarkable Clear by cardiology and pulmonology for discharge and follow up again for scheduledPatient is hemodynamically and clinically stable at discharge, Patient received physical therapy, evaluation by case management, initially recommended that he have however patient refused adamantly In spite of encouragement by the family members to go to rehabilitation previously, the patient opted to go home with home health patient will set up by case managementPatient is hemodynamically and clinically stable at discharge Advised fall precautions Advised to contact [facility] should she have worsening shortness of breath or chest pain Discharge diagnosis; And management --Acute on chronic hypoxemic respiratory failure: Continue O2 to maintain sats greater than 92%. Etiology secondary to CHF exacerbation, Pulmonary hypertension and COPD exacerbation. Pulmonary consultation pending. --Acute on chronic diastolic congestive heart failure Continue low-dose diuretics, follow up with cardiology upon discharge --Moderate pulmonary hypertension: Management per pulmonary --Pulmonary fibrosis/ILD. Pulmonary following. Repeat chest x-ray with no acute findings. --Acute COPD exacerbation. Continue breathing treatments. Continue systemic steroids. --Hypertrophic obstructive cardiomyopathy with chronic diastolic heart failure. 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 Continue Lasix, metoprolol discontinued secondary to bradycardia. Cardiology following. --Sinus bradycardia; mild improvement Hold beta blockers --Hypertension; well controlled Cont antihypertensive medications. --GERD. Continue PPI. --PT recommended home PT Patient is stable at discharge Plan of care is reviewed with the patient and her daughter Dr.De Maher Also reviewed with the patient's nurse and case management Disposition: [id number] HOME UNDER HOME [facility] Time spent for discharge: 32 min Core Measure Documentation - Palliative Care Palliative Care/ Comfort Measures: Not Applicable - Core Measures Any of the following diagnoses?: none Exam - Constitutional Vitals: Temp Pulse Resp BP Pulse Ox 98.8 F 76 18 93/60 96 05/12/19 08:09 05/12/19 10:00 05/12/19 10:37 05/12/19 08:09 05/12/19 08:34 General appearance: Present: no acute distress, well-nourished - EENT Eyes: Present: PERRL, EOM intact - Neck Neck: Present: supple, normal ROM - Respiratory Respiratory effort: normal Respiratory: bilateral: diminished, negative: rales, rhonchi, wheezing - Cardiovascular Rhythm: regular Heart Sounds: Present: S1 & S2 - Extremities Extremities: no ischemia, No edema - Abdominal General gastrointestinal: Present: soft, non-tender, non-distended, normal bowel sounds - Integumentary Integumentary: Present: clear, warm - Musculoskeletal Musculoskeletal: strength equal bilaterally - Psychiatric Psychiatric: appropriate mood/affect, cooperative - Neurologic Neurologic: CNII-XII intact, moves all extremities Plan Activity: advance as tolerated, fall precautions Diet: low salt Special Instructions: physical therapy Additional Instructions: Fall precautions. Patient's resting, ambulating room air O2 sats more than 95%. No indication for home oxygen. Home physical therapy. If you have chest pain or shortness of breath, contact M.D. or go to emergency room Follow up with: PRIMARY CARE, [Primary Care Provider] - 3-5 Days MALICK FRIAS MD [Staff Physician] - 7 Days ROMY MILIAN MD [Staff Physician] - 7 Days Prescriptions: Fluticasone/Salmeterol [Advair Diskus 250-50 mcg] 1 puff IH BID #1 disk.w.dev Furosemide [Lasix TAB] 20 mg PO QDAY #30 tablet Famotidine [Pepcid] 20 mg PO QDAY #30 tablet Prednisone [predniSONE 10 mg (6-Day Pack, 21 Tabs)] 10 mg PO .TAPER #1 tab.ds.pk ALBUTEROL Inhaler (OR & NICU) [ProAir HFA Inhaler] 2 puff IH QID PRN #1 inhalation PRN Reason: Shortness Of Breath
== END 2019-05-12 16:50 | disposition home health service (06) | DRG 291 ==
LOC: ED 09:58 → 4A 15:17
PROVIDERS: ADMIT Internal Medicine; ATTEND Internal Medicine
PROC: 4A033R1 Measurement of Arterial Saturation, Peripheral, Percutaneous Approach (ICD-10-PCS; principal; 2019-05-05)
DX: I11.0 Hypertensive heart disease with heart failure (principal); J96.21 Acute and chronic respiratory failure with hypoxia; J44.1 Chronic obstructive pulmonary disease with (acute) exacerbation; J44.0 Chronic obstructive pulmonary disease with (acute) lower respiratory infection; J84.9 Interstitial pulmonary disease, unspecified; I50.33 Acute on chronic diastolic (congestive) heart failure; J20.9 Acute bronchitis, unspecified; I42.1 Obstructive hypertrophic cardiomyopathy; K21.9 Gastro-esophageal reflux disease without esophagitis; M19.90 Unspecified osteoarthritis, unspecified site; F41.9 Anxiety disorder, unspecified; G89.29 Other chronic pain; I27.20 Pulmonary hypertension, unspecified; J84.10 Pulmonary fibrosis, unspecified; I25.10 Atherosclerotic heart disease of native coronary artery without angina pectoris; Z90.710 Acquired absence of both cervix and uterus; Z99.81 Dependence on supplemental oxygen; Z87.891 Personal history of nicotine dependence; Z79.899 Other long term (current) drug therapy
CPT/HCPCS: 36415; 71045; 80048; 80053; 81001; 82140; 82803; 83735; 83880; 84439; 84443; 85025; 85730; 87040; 93005; 93010; 93306; 94640; 94760; 96365; 99291; G0378; J1650; J1940; J1956; J2920; J2930; J7030

== ENCOUNTER 2019-06-22 14:34 | Outpatient (CLI) | payer MEDICARE, OTHER ==
--- NOTE | 2019-06-22 15:12 | XRay Report ---
LEFT SHOULDER, 3 VIEWS INDICATION: M25.512 PAIN IN LEFT SHOULDER. COMPARISON: None. IMPRESSION: Mild osteopenia is suspected. No evidence for fracture, dislocation, ligamentous injury or bone lesion. Mild osteoarthritic changes are identified at the AC joint and glenohumeral joint. T he soft tissues are unremarkable. Signer Name: Jose Thompson Jr, MD Signed: 06/22/2019 3:08 PM Workstation Name: [id number]
== END 2019-06-22 14:35 | disposition home or self-care (01) ==
LOC: XRAY 14:34
PROVIDERS: ATTEND Physical Medicine & Rehabilitation
DX: M19.012 Primary osteoarthritis, left shoulder (principal); I11.0 Hypertensive heart disease with heart failure; I50.9 Heart failure, unspecified; J43.9 Emphysema, unspecified; Z90.710 Acquired absence of both cervix and uterus

== ENCOUNTER 2019-10-16 14:50 | Emergency (ER) | payer MEDICARE, OTHER ==
--- NOTE | 2019-10-16 15:16 | Event Note ---
ED Screening Note ED Screening Note: SOB productive cough soreness in the chest that began two days ago no fever PMHx MVP, CHF This initial assessment/diagnostic orders/clinical plan/treatment(s) is/are subject to change based on patients health status, clinical progression and re- assessment by fellow clinical providers in the ED. Further treatment and workup at subsequent clinical providers discretion. Patient/guardian urged not to elope from the ED as their condition may be serious if not clinically assessed and managed. Initial orders include: labs, CXR, EKG
--- NOTE | 2019-10-16 15:46 | XRay Report ---
CHEST 2 VIEWS INDICATION / CLINICAL INFORMATION: SOB, cough. COMPARISON: One view of the chest from 05/10/2019. FINDINGS: SUPPORT DEVICES: None. HEART / MEDIASTINUM: Stable. LUNGS / PLEURA: Probable chronic interstitial lung disease is unchanged. No other significant pulmona ry abnormality or significant pleural effusion. No pneumothorax. ADDITIONAL FINDINGS: No significant additional findings. IMPRESSION: 1. No acute abnormality of the chest. 2. Otherwise stable appearance of the chest. Signer Name: Jovani Gomez MD Signed: 10/16/2019 3:42 PM Workstation Name: [id number]
[2019-10-16 15:52] LABS: Basophils % (Auto) 0.5 % (0.0-1.8); Eosinophils # (Auto) 0.2 K/mm3 (0.0-0.4); Hematocrit 35.2 % (30.3-42.9); Hemoglobin 11.8 gm/dl (10.1-14.3); Lymphocytes % (Auto) 15.5 % (13.4-35.0); Mean Corpuscular HGB Conc 34 % (30-34); Mean Corpuscular Volume 94 fl (79-97); Monocytes # (Auto) 0.6 K/mm3 (0.0-0.8); Monocytes % (Auto) 9.9 % (0.0-7.3); Platelet Count 203 K/mm3 (140-440); Red Blood Count 3.74 M/mm3 (3.65-5.03); Red Cell Distribution Width 14.5 % (13.2-15.2)
[2019-10-16 16:00] LABS: INR 1.01 (0.87-1.13)
[2019-10-16 16:01] LABS: Partial Thromboplastin Time 28.6 Sec. (24.2-36.6)
[2019-10-16] MEDS ORDERED: ACETAMINOPHEN 500 MG TAB PO ONE (16:03)
[2019-10-16] MEDS ORDERED: FAMOTIDINE 20 MG TAB PO ONE (16:03)
[2019-10-16] MEDS ORDERED: ALBUTEROL 2.5 MG/3 ML NEBU IH ONE (16:03)
--- NOTE | 2019-10-16 16:04 | Emergency Department Report ---
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 I have evaluated this patient in the past. She has a history of COPD, pulmonary hypertension, pulmonary fibrosis, deconditioning, diastolic heart failure. She had a negative nuclear stress test at this hospital December 2018, and as per a recent cardiology consultation 05/12/2019, conservative cardiac management is recommended, with no plans for repeat cardiac risk stratification. The patient presents to the ER today with a few days of cough, clear and occasional yellow mucus production, reproducible muscular arm pain in the context of heavy lifting, chest wall tightness and discomfort with coughing, and intermittent weakness, now resolved. The patient denies DVT and pulmonary embolism risk factors. Her chest wall tightness does not rate the back, arms or neck. There is no vomiting or diaphoresis. There is no new or different shortness of breath. She denies urinary symptoms. She denies abdominal pain at this time. She came in today because a family member counseled her to get checked out because of the mucous production and possible need for antibiotic therapy. In this provider enters the room, the patient smiles, and requests that she may go home. -: Gradual, days(s) Location: chest, left, right, lower extremity Quality: aching Consistency: intermittent Improves with: rest Worsens with: movement - Related Data Home Medications Medication Instructions Recorded Confirmed Last Taken Macitentan (Nf) [Opsumit (Nf)] 10 mg PO DAILY 03/18/18 05/05/19 05/05/19 PARoxetine CR (NF) [Paxil (Nf)] 25 mg PO QAM 01/06/19 05/05/19 05/05/19 Previous Rx's Medication Instructions Recorded Last Taken Type ALBUTEROL Inhaler (OR & NICU) 2 puff IH QID PRN #1 inhalation 05/12/19 Unknown Rx [ProAir HFA Inhaler] Famotidine [Pepcid] 20 mg PO QDAY #30 tablet 05/12/19 Unknown Rx Fluticasone/Salmeterol [Advair 1 puff IH BID #1 disk.w.dev 05/12/19 Unknown Rx Diskus 250-50 mcg] Furosemide [Lasix TAB] 20 mg PO QDAY #30 tablet 05/12/19 Unknown Rx Prednisone [predniSONE 10 mg 10 mg PO .TAPER #1 tab.ds.pk 05/12/19 Unknown Rx (6-Day Pack, 21 Tabs)] Albuterol Sulfate [Proair 90 mcg IH Q4HR PRN #2 aer.pow.ba 10/16/19 Unknown Rx Respiclick] Benzonatate [Tessalon Perles] 100 mg PO Q8HR PRN #30 capsule 10/16/19 Unknown Rx Allergies Allergy/AdvReac Type Severity Reaction Status Date / Time codeine phosphate Allergy Nausea Verified 11/14/14 07:59 [From Tylenol-Codeine #3] ED Review of Systems ROS: Stated complaint: JOSIAS Other details as noted in HPI Constitutional: denies: fever ENT: congestion Respiratory: cough, shortness of breath Cardiovascular: denies: syncope Gastrointestinal: denies: nausea, vomiting Genitourinary: denies: dysuria Musculoskeletal: arthralgia, myalgia Neurological: weakness Hematological/Lymphatic: denies: easy bleeding ED Past Medical Hx - Past Medical History Hx Hypertension: Yes Hx Congestive Heart Failure: Yes Hx GERD: Yes Hx Arthritis: Yes Hx COPD: Yes Hx HIV: No Additional medical history: aniexty,chronic pain - Surgical History Additional Surgical History: partial hysterectom - Social History Smoking Status: Former Smoker Substance Use Type: Alcohol - Medications Home Medications: Home Medications Medication Instructions Recorded Confirmed Last Taken Type Macitentan (Nf) [Opsumit (Nf)] 10 mg PO DAILY 03/18/18 05/05/19 05/05/19 History PARoxetine CR (NF) [Paxil (Nf)] 25 mg PO QAM 01/06/19 05/05/19 05/05/19 History ALBUTEROL Inhaler (OR & NICU) 2 puff IH QID PRN #1 inhalation 05/12/19 Unknown Rx [ProAir HFA Inhaler] Famotidine [Pepcid] 20 mg PO QDAY #30 tablet 05/12/19 Unknown Rx Fluticasone/Salmeterol [Advair 1 puff IH BID #1 disk.w.dev 05/12/19 Unknown Rx Diskus 250-50 mcg] Furosemide [Lasix TAB] 20 mg PO QDAY #30 tablet 05/12/19 Unknown Rx Prednisone [predniSONE 10 mg 10 mg PO .TAPER #1 tab.ds.pk 05/12/19 Unknown Rx (6-Day Pack, 21 Tabs)] Albuterol Sulfate [Proair 90 mcg IH Q4HR PRN #2 aer.pow.ba 10/16/19 Unknown Rx Respiclick] Benzonatate [Tessalon Perles] 100 mg PO Q8HR PRN #30 capsule 10/16/19 Unknown Rx ED Physical Exam - General Limitations: No Limitations General appearance: alert, in no apparent distress - Head Head exam: Present: atraumatic, normocephalic - Eye Eye exam: Present: normal appearance, EOMI. Absent: nystagmus - ENT ENT exam: Present: normal exam, mucous membranes moist, normal external ear exam - Neck Neck exam: Present: normal inspection, full ROM. Absent: tenderness, meningismus - Respiratory Respiratory exam: Present: chest wall tenderness, decreased breath sounds. Absent: respiratory distress, wheezes, rales, rhonchi, stridor - Cardiovascular Cardiovascular Exam: Present: regular rate, normal rhythm, normal heart sounds. Absent: bradycardia, tachycardia, irregular rhythm, systolic murmur, diastolic murmur, rubs, gallop - GI/Abdominal GI/Abdominal exam: Present: soft. Absent: distended, tenderness, guarding, rebound, rigid, pulsatile mass - Extremities Exam Extremities exam: Present: normal inspection, full ROM, other (2+ pulses noted in the bilateral upper, lower extremities. There is no long bone tenderness. M usculoskeletal compartments are soft. The pelvis is stable.). Absent: pedal edema, joint swelling, calf tenderness - Back Exam Back exam: Present: normal inspection, full ROM. Absent: tenderness, CVA tenderness (R), CVA tenderness (L), paraspinal tenderness, vertebral tenderness - Neurological Exam Neurological exam: Present: alert, normal gait, other (there is no facial droop. The tongue is midline. Extraocular movements are intact bilaterally. Patient speaking in full complete sentences. Shoulder shrug is intact bilaterally. Hearing is grossly intact bilaterally. Visual acuity intact to finger counting and color perception at a close distance. 5/5 strength 4 extremities. Sensation intact to light touch in 4 extremities.). Absent: motor sensory deficit - Psychiatric Psychiatric exam: Present: normal affect, normal mood - Skin Skin exam: Present: warm, dry, intact, normal color. Absent: rash ED Course Vital Signs 10/16/19 10/16/19 10/16/19 15:08 15:17 17:10 Temperature 98.4 F Pulse Rate 73 Pulse Rate [ 67 Anterior Bilateral Throughout] Respiratory 20 Rate Respiratory 20 Rate [Anterior Bilateral Throughout] Blood Pressure 113/68 O2 Sat by Pulse 96 Oximetry - Reevaluation(s) Reevaluation #1: 10/16/19 16:22 Differential diagnosis, including not limited to: Bronchitis, pulmonary fibrosis, pneumonia, costochondritis, musculoskeletal extremity discomfort Assessment and plan: Pleasant well-appearing 79-year-old female, not tachycardic, tachypneic or hypoxic, low risk by well's criteria, with complaint of cough, muscular arm pain and chest wall pain. Recently had a cardiac risk stratification at this hospital, and as per recent cardiology documentation, no indication for repeat cardiac risk stratification. Most likely experiencing natural history of bronchitis and pulmonary fibrosis, symptoms present for days, this is very unlikely to be an atypical presentation of acute coronary syndrome. At this point time, does not meet criteria for antibiotic therapy. Explained that she most likely experiencing expected natural history of her underlying pulmonary fibrosis. Screening laboratory studies, urinalysis, EKG pending at this time. Reevaluation #2: 10/16/19 17:24 Patient reassessed. Patient in no acute distress. Caring on an engaged and animated conversation with her crewrfmg-vh-mwq. Vital signs reviewed and appr eciated, laboratory studies reviewed and appreciated, EKG unchanged from prior, patient suitable for discharge with outpatient follow-up at this time. ED Medical Decision Making - Lab Data Result diagrams: 10/16/19 10:02 10/16/19 15:35 Vital Signs 10/16/19 10/16/19 15:08 15:17 Temperature 98.4 F Pulse Rate 73 Respiratory 20 Rate Blood Pressure 113/68 O2 Sat by Pulse 96 Oximetry Lab Results 10/16/19 10/16/19 Range/Units 10:02 15:35 WBC 6.2 (4.5-11.0) K/mm3 RBC 3.74 (3.65-5.03) M/mm3 Hgb 11.8 (10.1-14.3) gm/dl Hct 35.2 (30.3-42.9) % MCV 94 (79-97) fl MCH 32 (28-32) pg MCHC 34 (30-34) % RDW 14.5 (13.2-15.2) % Plt Count 203 (140-440) K/mm3 Lymph % (Auto) 15.5 (13.4-35.0) % [place] % (Auto) 9.9 H (0.0-7.3) % Eos % (Auto) 3.0 (0.0-4.3) % Baso % (Auto) 0.5 (0.0-1.8) % Lymph # 1.0 L (1.2-5.4) K/mm3 [place] # 0.6 (0.0-0.8) K/mm3 Eos # 0.2 (0.0-0.4) K/mm3 Baso # 0.0 (0.0-0.1) K/mm3 Seg Neutrophils % 71.1 H (40.0-70.0) % Seg Neutrophils # 4.4 (1.8-7.7) K/mm3 PT 13.2 (12.2-14.9) Sec. INR 1.01 (0.87-1.13) APTT 28.6 (24.2-36.6) Sec. Lab Results 10/16/19 10/16/19 10/16/19 Range/Units 10:02 15:35 15:35 WBC 6.2 (4.5-11.0) K/mm3 RBC 3.74 (3.65-5.03) M/mm3 Hgb 11.8 (10.1-14.3) gm/dl Hct 35.2 (30.3-42.9) % MCV 94 (79-97) fl MCH 32 (28-32) pg MCHC 34 (30-34) % RDW 14.5 (13.2-15.2) % Plt Count 203 (140-440) K/mm3 Lymph % (Auto) 15.5 (13.4-35.0) % [place] % (Auto) 9.9 H (0.0-7.3) % Eos % (Auto) 3.0 (0.0-4.3) % Baso % (Auto) 0.5 (0.0-1.8) % Lymph # 1.0 L (1.2-5.4) K/mm3 [place] # 0.6 (0.0-0.8) K/mm3 Eos # 0.2 (0.0-0.4) K/mm3 Baso # 0.0 (0.0-0.1) K/mm3 Seg Neutrophils % 71.1 H (40.0-70.0) % Seg Neutrophils # 4.4 (1.8-7.7) K/mm3 PT 13.2 (12.2-14.9) Sec. INR 1.01 (0.87-1.13) APTT 28.6 (24.2-36.6) Sec. Sodium 141 (137-145) mmol/L Potassium 3.4 L (3.6-5.0) mmol/L Chloride 100.8 (98-107) mmol/L Carbon Dioxide 25 (22-30) mmol/L Anion Gap 19 mmol/L BUN 12 (7-17) mg/dL Creatinine 1.2 (0.7-1.2) mg/dL Estimated GFR 52 ml/min BUN/Creatinine Ratio 10 % Glucose 61 L (65-100) mg/dL Calcium 8.8 (8.4-10.2) mg/dL Magnesium (1.7-2.3) mg/dL Total Bilirubin 0.90 (0.1-1.2) mg/dL AST 18 (5-40) units/L ALT 8 (7-56) units/L Alkaline Phosphatase 54 (35-129) units/L Total Creatine Kinase (30-135) units/L Troponin T < 0.010 (0.00-0.029) ng/mL NT-Pro-B Natriuret Pep (0-900) pg/mL Total Protein 6.9 (6.3-8.2) g/dL Albumin 3.7 L (3.9-5) g/dL Albumin/Globulin Ratio 1.2 % 10/16/19 10/16/19 Range/Units 15:35 15:35 WBC (4.5-11.0) K/mm3 RBC (3.65-5.03) M/mm3 Hgb (10.1-14.3) gm/dl Hct (30.3-42.9) % MCV (79-97) fl MCH (28-32) pg MCHC (30-34) % RDW (13.2-15.2) % Plt Count (140-440) K/mm3 Lymph % (Auto) (13.4-35.0) % [place] % (Auto) (0.0-7.3) % Eos % (Auto) (0.0-4.3) % Baso % (Auto) (0.0-1.8) % Lymph # (1.2-5.4) K/mm3 [place] # (0.0-0.8) K/mm3 Eos # (0.0-0.4) K/mm3 Baso # (0.0-0.1) K/mm3 Seg Neutrophils % (40.0-70.0) % Seg Neutrophils # (1.8-7.7) K/mm3 PT (12.2-14.9) Sec. INR (0.87-1.13) APTT (24.2-36.6) Sec. Sodium (137-145) mmol/L Potassium (3.6-5.0) mmol/L Chloride (98-107) mmol/L Carbon Dioxide (22-30) mmol/L Anion Gap mmol/L BUN (7-17) mg/dL Creatinine (0.7-1.2) mg/dL Estimated GFR ml/min BUN/Creatinine Ratio % Glucose (65-100) mg/dL Calcium (8.4-10.2) mg/dL Magnesium 1.90 (1.7-2.3) mg/dL Total Bilirubin (0.1-1.2) mg/dL AST (5-40) units/L ALT (7-56) units/L Alkaline Phosphatase (35-129) units/L Total Creatine Kinase 88 (30-135) units/L Troponin T (0.00-0.029) ng/mL NT-Pro-B Natriuret Pep 740.9 (0-900) pg/mL Total Protein (6.3-8.2) g/dL Albumin (3.9-5) g/dL Albumin/Globulin Ratio % - EKG Data -: EKG Interpreted by Ms EKG shows normal: sinus rhythm Rate: normal - EKG Data 10/16/19 16:25 EKG today is limited by motion artifact. This is a sinus rhythm, 66 bpm, left ventricular hypertrophy, atrial enlargement, QTC is prolonged, there is motion artifact, the EKG appears to be grossly unchanged from prior EKG, the EKG is not consistent with ST elevation myocardial infarction. Repeat EKG is requested secondary to initial motion artifact. - Radiology Data Radiology results: report reviewed, image reviewed Print Report Referring Physician: PHIL COULTER Patient Name: LANE BOYD Date of : 1940 Sex: Female Report Date: 2019-10-16 Report Status: Finalized Findings [facility] [address] [place] [address] XRay Report Signed Patient: LANE BOYD MR#: [id number] : 1940 Acct:[id number] Age/Sex: 79 / F ADM Date: 10/16/19 Loc: ED Attending Dr: Ordering Physician: KARTIK DUARTE Date of Service: 10/16/19 Procedure(s): XR chest routine 2V Accession Number(s): [id number] cc: KARTIK DUARTE Fluoro Time In Minutes: CHEST 2 VIEWS INDICATION / CLINICAL INFORMATION: SOB, cough. COMPARISON: One view of the chest from 05/10/2019. FINDINGS: SUPPORT DEVICES: None. HEART / MEDIASTINUM: Stable. LUNGS / PLEURA: Probable chronic interstitial lung disease is unchanged. No other significant pulmonary abnormality or significant pleural effusion. No pneumothorax. ADDITIONAL FINDINGS: No significant additional findings. IMPRESSION: 1. No acute abnormality of the chest. 2. Otherwise stable appearance of the chest. Signer Name: Jovani Gomez MD Signed: 10/16/2019 3:42 PM Workstation Name: [id number] Transcribed By: [place] Dictated By: Jovani Gomez MD Electronically Authenticated By: Jovani Gomez MD Signed Date/Time: 10/16/191541 DD/ 39 Critical care attestation.: If time is entered above; I have spent that time in minutes in the direct care of this critically ill patient, excluding procedure time. ED Disposition Clinical Impression: History of pulmonary fibrosis Disposition: - TO HOME OR SELFCARE Is pt being admited?: No Does the pt Need Aspirin: No Condition: Stable Additional Instructions: Cultures were sent today, and results will be available in the next 3-5 days. Please have your primary care doctor contact medical records department to obtain culture results. Patient likely experiencing underlying natural history and expected progression of underlying pulmonary fibrosis. At this point time, patient does not require antibiotic therapy, but this may change. Therefore, recommend close outpatient follow up with either the patient's primary care doctor, sales support technician, or ragman. Continue current outpatient medications. Recommend follow-up within the next 3-5 days with any of the aforementioned physicians. Return to emergency room right away with projectile vomiting, change in mental status, confusion, inability to tolerate liquid feeds, new, worsened or different symptoms not present on the initial emergency room evaluation. Patient may take [id number] Tylenol, 625 mg by mouth, every 4-6 hours, as needed for pain, alternating with ibuprofen, 400 mg by mouth, with food, every 6 hours as needed for pain. Prescriptions: Albuterol Sulfate [Proair Respiclick] 90 mcg IH Q4HR PRN #2 aer.pow.ba PRN Reason: Wheezing Benzonatate [Tessalon Perles] 100 mg PO Q8HR PRN #30 capsule PRN Reason: Cough Referrals: MALICK FRIAS MD [Staff Physician] - 3-5 Days YULIANA DICKINSON MD [Staff Physician] - 3-5 Days
[2019-10-16 16:22] LABS: Alanine Aminotransferase 8 units/L (7-56); Albumin 3.7 g/dL (3.9-5); BUN/Creatinine Ratio 10; Blood Urea Nitrogen 12 mg/dL (7-17); Calcium 8.8 mg/dL (8.4-10.2); Hemolysis Index 10
[2019-10-16] MEDS ORDERED: POTASSIUM CHLORIDE ER 20 MEQ TAB PO ONE (16:25)
[2019-10-16 16:33] LABS: Bilirubin,Urine NEG (Negative); Blood,Urine NEG (Negative); Color,Urine Yellow (Yellow); Mucus,Urine FEW /HPF; Protein,Urine <15 mg/dL mg/dL (Negative); Urobilinogen,Urine < 2.0 mg/dL (<2.0); WBC,Urine < 1.0 /HPF (0.0-6.0)
[2019-10-16 17:28] VITALS: BP 110/53
== END 2019-10-16 18:55 | disposition home or self-care (01) ==
LOC: ED 14:50
DX: J84.10 Pulmonary fibrosis, unspecified (principal); I11.0 Hypertensive heart disease with heart failure; I50.9 Heart failure, unspecified; K21.9 Gastro-esophageal reflux disease without esophagitis; M19.90 Unspecified osteoarthritis, unspecified site; J44.9 Chronic obstructive pulmonary disease, unspecified; F41.9 Anxiety disorder, unspecified; Z90.710 Acquired absence of both cervix and uterus; Z87.891 Personal history of nicotine dependence; Z79.899 Other long term (current) drug therapy; Z88.4 Allergy status to anesthetic agent
CPT/HCPCS: 36415; 71046; 80053; 81001; 82550; 83735; 83880; 84484; 85025; 85610; 85730; 93005; 93010; 94640; 94644

== ENCOUNTER 2019-10-24 13:01 | Inpatient (IN) | payer MEDICARE, OTHER ==
[2019-10-24] MEDS ORDERED: IPRATROPIUM/ALBUTEROL SULFATE 3 ML AMPUL.NEB IH ONE (13:28)
[2019-10-24 14:05] LABS: Basophils % (Auto) 0.6 % (0.0-1.8); Eosinophils # (Auto) 0.1 K/mm3 (0.0-0.4); Eosinophils % (Auto) 2.5 % (0.0-4.3); Hematocrit 38.9 % (30.3-42.9); Hemoglobin 12.9 gm/dl (10.1-14.3); Lymphocytes % (Auto) 17.7 % (13.4-35.0); Mean Corpuscular HGB Conc 33 % (30-34); Mean Corpuscular Volume 95 fl (79-97); Monocytes # (Auto) 0.5 K/mm3 (0.0-0.8); Monocytes % (Auto) 8.8 % (0.0-7.3); Platelet Count 181 K/mm3 (140-440); Red Blood Count 4.09 M/mm3 (3.65-5.03); Red Cell Distribution Width 14.5 % (13.2-15.2)
--- NOTE | 2019-10-24 14:18 | XRay Report ---
CHEST 2 VIEWS INDICATION: COUGH, SOB. COMPARISON: 10/16/2019 FINDINGS: Support devices: None. Heart: Stable mild cardiomegaly. Lungs/pleura: Minimal streaky left basilar airspace disease as well as right costophrenic pleural tisha nting which could be seen with pleural thickening or a trace effusion. No pneumothorax. Additional findings: None. IMPRESSION: 1. Pulmonary findings as above. Signer Name: Diego Garay MD Signed: 10/24/2019 2:13 PM Workstation Name: [id number]
[2019-10-24 14:19] LABS: INR 0.84 (0.87-1.13); Partial Thromboplastin Time 27.6 Sec. (24.2-36.6)
[2019-10-24 14:22] LABS: Calcium 9.6 mg/dL (8.4-10.2)
[2019-10-24] MEDS ORDERED: BENZONATATE 100 MG CAP PO ONE (16:20)
[2019-10-24] MEDS ORDERED: methylPREDNISolone Sod Succinate 125 MG/2 ML INJ IV ONE (16:20)
--- NOTE | 2019-10-24 16:34 | Emergency Department Report ---
ED Shortness of Breath HPI - General Chief Complaint: Dyspnea/Respdistress Stated Complaint: SOB/CHF/HTN Time Seen by Provider: 10/24/19 13:20 Source: patient Mode of arrival: Ambulatory Limitations: No Limitations - History of Present Illness Initial Comments: Ms. Boyd is 79 years old female with history of COPD, pulmonary fibrosis, congestive heart failure and chronic back pain. Patient brought to the emergency room accompanied by her [id number] who is a physician at another facility. [id number]-[id number] is providing most of the history. She stated that she has been having shortness of breath and cough for the last 2 weeks. Patient was seen here one week ago and discharged from the ER. Patient stated that she did not felt better since she left. Patient describes her cough as dry. Family are not sure if she is using her albuterol or not. Patient lives by herself. Patient is on oxygen 2 L/m at home. Patient denied any fever or chills. Patient also denied any chest pain. MD Complaint: shortness of breath, cough -: week(s) Severity: moderate Improves With: bronchodilators Known History Of: COPD, congestive heart failure Context: recent URI - Related Data Home Medications Medication Instructions Recorded Confirmed Last Taken Macitentan (Nf) [Opsumit (Nf)] 10 mg PO DAILY 03/18/18 05/05/19 05/05/19 PARoxetine CR (NF) [Paxil (Nf)] 25 mg PO QAM 01/06/19 05/05/19 05/05/19 Previous Rx's Medication Instructions Recorded Last Taken Type ALBUTEROL Inhaler (OR & NICU) 2 puff IH QID PRN #1 inhalation 05/12/19 Unknown Rx [ProAir HFA Inhaler] Famotidine [Pepcid] 20 mg PO QDAY #30 tablet 05/12/19 Unknown Rx Fluticasone/Salmeterol [Advair 1 puff IH BID #1 disk.w.dev 05/12/19 Unknown Rx Diskus 250-50 mcg] Furosemide [Lasix TAB] 20 mg PO QDAY #30 tablet 05/12/19 Unknown Rx Prednisone [predniSONE 10 mg 10 mg PO .TAPER #1 tab.ds.pk 05/12/19 Unknown Rx (6-Day Pack, 21 Tabs)] Albuterol Sulfate [Proair 90 mcg IH Q4HR PRN #2 aer.pow.ba 10/16/19 Unknown Rx Respiclick] Benzonatate [Tessalon Perles] 100 mg PO Q8HR PRN #30 capsule 10/16/19 Unknown Rx Allergies Allergy/AdvReac Type Severity Reaction Status Date / Time codeine phosphate Allergy Nausea Verified 11/14/14 07:59 [From Tylenol-Codeine #3] ED Review of Systems ROS: Stated complaint: SOB/CHF/HTN Other details as noted in HPI Comment: All other systems reviewed and negative Constitutional: denies: chills, fever Respiratory: cough, shortness of breath, SOB with exertion, SOB at rest, wheezing. denies: orthopnea Cardiovascular: denies: chest pain, palpitations Gastrointestinal: denies: abdominal pain, nausea, vomiting, diarrhea, constipation, hematemesis, melena, hematochezia Musculoskeletal: denies: back pain Neurological: denies: headache, weakness ED Past Medical Hx - Past Medical History Previous Medical History?: Yes Hx Hypertension: Yes Hx Congestive Heart Failure: Yes Hx GERD: Yes Hx Arthritis: Yes Hx COPD: Yes Hx HIV: No Additional medical history: aniexty,chronic pain - Surgical History Past Surgical History?: Yes Additional Surgical History: partial hysterectom - Social History Smoking Status: Unknown if ever smoked Substance Use Type: None - Medications Home Medications: Home Medications Medication Instructions Recorded Confirmed Last Taken Type Macitentan (Nf) [Opsumit (Nf)] 10 mg PO DAILY 03/18/18 05/05/19 05/05/19 History PARoxetine CR (NF) [Paxil (Nf)] 25 mg PO QAM 01/06/19 05/05/19 05/05/19 History ALBUTEROL Inhaler (OR & NICU) 2 puff IH QID PRN #1 inhalation 05/12/19 Unknown Rx [ProAir HFA Inhaler] Famotidine [Pepcid] 20 mg PO QDAY #30 tablet 05/12/19 Unknown Rx Fluticasone/Salmeterol [Advair 1 puff IH BID #1 disk.w.dev 05/12/19 Unknown Rx Diskus 250-50 mcg] Furosemide [Lasix TAB] 20 mg PO QDAY #30 tablet 05/12/19 Unknown Rx Prednisone [predniSONE 10 mg 10 mg PO .TAPER #1 tab.ds.pk 05/12/19 Unknown Rx (6-Day Pack, 21 Tabs)] Albuterol Sulfate [Proair 90 mcg IH Q4HR PRN #2 aer.pow.ba 10/16/19 Unknown Rx Respiclick] Benzonatate [Tessalon Perles] 100 mg PO Q8HR PRN #30 capsule 10/16/19 Unknown Rx ED Physical Exam - General Limitations: No Limitations General appearance: alert, in no apparent distress - Head Head exam: Present: atraumatic, normocephalic, normal inspection - Eye Eye exam: Present: normal appearance - ENT ENT exam: Present: normal exam, normal orophraynx, mucous membranes moist - Neck Neck exam: Present: normal inspection, full ROM. Absent: tenderness, meningismus, lymphadenopathy, thyromegaly - Respiratory Respiratory exam: Present: wheezes. Absent: respiratory distress, rales, rhonchi, stridor, chest wall tenderness, accessory muscle use, decreased breath sounds, prolonged expiratory - Cardiovascular Cardiovascular Exam: Present: regular rate, normal rhythm, normal heart sounds - GI/Abdominal GI/Abdominal exam: Present: soft, normal bowel sounds. Absent: distended, tenderness, guarding, rebound, rigid, organomegaly, mass, bruit, pulsatile mass, hernia - Extremities Exam Extremities exam: Present: normal inspection, full ROM, normal capillary refill. Absent: tenderness, pedal edema, joint swelling, calf tenderness - Back Exam Back exam: Present: normal inspection, full ROM. Absent: CVA tenderness (R), CVA tenderness (L), muscle spasm, paraspinal tenderness, vertebral tenderness - Neurological Exam Neurological exam: Present: alert, oriented X3, CN II-XII intact, normal gait, reflexes normal - Psychiatric Psychiatric exam: Present: normal mood - Skin Skin exam: Present: warm, intact, normal color ED Course Vital Signs 10/24/19 10/24/19 13:19 16:17 Temperature 97.8 F Pulse Rate 87 Pulse Rate [ 84 Bilateral Lower Lobe] Pulse Rate [ 86 Right Bases] Respiratory 20 Rate Respiratory 18 Rate [Bilateral Lower Lobe] Respiratory 16 Rate [Right Bases] Blood Pressure 110/76 O2 Sat by Pulse 97 Oximetry ED Medical Decision Making - Lab Data Result diagrams: 10/24/19 13:43 10/24/19 13:43 - Radiology Data Radiology results: report reviewed - Medical Decision Making Ms. Boyd is 79 years old female with history of COPD, pulmonary fibrosis, congestive heart failure and chronic back pain. Patient brought to the emergency room accompanied by her gqtgabrh-ys-gku who is a physician at another facility. Zdgudicc-rt-mgy is providing most of the history. She stated that she has been having shortness of breath and cough for the last 2 weeks. Patient was seen here one week ago and discharged from the ER. Patient stated that she did not felt better since she left. Patient describes her cough as dry. Family are not sure if she is using her albuterol or not. Patient lives by herself. Patient is on oxygen 2 L/m at home. Patient denied any fever or chills. Patient also denied any chest pain. Patient received albuterol and Solu-Medrol. Patient stated that she is feeling better. Chest x-ray is unremarkable. I discussed the patient with Dr. Huitron, he agreed to admit the patient to medical service for further management. Critical Care Time: Yes Critical care time in (mins) excluding proc time.: 30 Critical care attestation.: If time is entered above; I have spent that time in minutes in the direct care of this critically ill patient, excluding procedure time. ED Disposition Clinical Impression: COPD exacerbation, Shortness of breath Disposition: DC09 OP ADMIT IP TO THIS HOSP Is pt being admited?: Yes Condition: Stable Instructions: Chronic Obstructive Pulmonary Disease (ED)
[2019-10-24] MEDS ORDERED: FUROSEMIDE 40 MG/4 ML INJ IV ONE (17:08)
--- NOTE | 2019-10-24 17:58 | History and Physical Report ---
History of Present Illness Chief complaint: My breathing is bad History of present illness: 79 YO Female with HTN, GERD, OA, COPD, Pulmonary Fibrosis, Chronic Respiratory Failure on 2L Home Oxygen via [place] presents to ED for evaluation. Pt states that she has experienced shortness of breath and nonproductive cough over the past 1 week with worsening symtpoms over the past 4 days. Pt states that her symptoms were not relieved with nebulizer therapy. Pt acknowledges dry cough, subjective fever, as well as decreased exercise tolerance. Pt transported to [facility] via private vehicle. Pt seen and evaluated in ED and found to have COPD Exacerbation, as well as symptoms consistent with Diastolic CHF Decompensation. Pt placed in observation status and admitted to ACD Unit. Pt denies fever, chills, CP, Palpitations, NVD, skin rash, unilateral leg swelling, calf pain, hemoptysis, or recent ill contacts. Prior admission on 05/05/19 reviewed. All medication listed at time of admission has been reconciled. Past History Past Medical History: other (See HPI) Past Surgical History: hysterectomy Social history: , Lives alone. denies: smoking, alcohol abuse, prescription drug abuse Family history: hypertension Medications and Allergies Allergies Allergy/AdvReac Type Severity Reaction Status Date / Time codeine phosphate Allergy Nausea Verified 11/14/14 07:59 [From Tylenol-Codeine #3] Home Medications Medication Instructions Recorded Confirmed Last Taken Type Macitentan (Nf) [Opsumit (Nf)] 10 mg PO DAILY 03/18/18 05/05/19 05/05/19 History PARoxetine CR (NF) [Paxil (Nf)] 25 mg PO QAM 01/06/19 05/05/19 05/05/19 History ALBUTEROL Inhaler (OR & NICU) 2 puff IH QID PRN #1 inhalation 05/12/19 Unknown Rx [ProAir HFA Inhaler] Famotidine [Pepcid] 20 mg PO QDAY #30 tablet 05/12/19 Unknown Rx Fluticasone/Salmeterol [Advair 1 puff IH BID #1 disk.w.dev 05/12/19 Unknown Rx Diskus 250-50 mcg] Furosemide [Lasix TAB] 20 mg PO QDAY #30 tablet 05/12/19 Unknown Rx Prednisone [predniSONE 10 mg 10 mg PO .TAPER #1 tab.ds.pk 05/12/19 Unknown Rx (6-Day Pack, 21 Tabs)] Albuterol Sulfate [Proair 90 mcg IH Q4HR PRN #2 aer.pow.ba 10/16/19 Unknown Rx Respiclick] Benzonatate [Tessalon Perles] 100 mg PO Q8HR PRN #30 capsule 10/16/19 Unknown Rx Review of Systems Constitutional: malaise, no weight loss, no weight gain, no fever, no chills Ears, nose, mouth and throat: no ear pain, no ear discharge, no tinnitis, no decreased hearing, no nose pain, no nasal congestion Breasts: no change in shape, no swelling, no mass Cardiovascular: no chest pain, no orthopnea, no palpitations, no rapid/irregular heart beat Respiratory: cough, shortness of breath, dyspnea on exertion, congestion, no pain, no pain on inspiration Gastrointestinal: no abdominal pain, no nausea, no vomiting, no diarrhea, no constipation Genitourinary Female: no pelvic pain, no flank pain, no menorrhagia, no dysuria, no urinary frequency, no urgency Rectal: no pain, no incontinence, no bleeding Musculoskeletal: no neck stiffness, no neck pain, no shooting arm pain, no arm numbness/tingling, no low back pain, no shooting leg pain, no leg numbness/tingl ing, no redness of joints Integumentary: no rash, no pruritis, no redness, no sores, no wounds, no jaundice, no boils, no blisters Neurological: no head injury, no transient paralysis, no paralysis, no weakness, no parathesias, no numbness, no tingling, no seizures Psychiatric: no anxiety, no memory loss, no change in sleep habits, no sleep disturbances, no insomnia, no hypersomnia, no change in appetite Endocrine: no cold intolerance, no heat intolerance, no polyphagia, no polydipsia, no polyuria Hematologic/Lymphatic: no easy bruising, no easy bleeding, no lymphadenopathy, no lymphedema Allergic/Immunologic: no urticaria, no allergic rhinitis, no wheezing, no anaphylaxis, no angioedema Exam - Constitutional Vitals: Temp Pulse Resp BP Pulse Ox 97.8 F 86 16 110/76 97 10/24/19 13:19 10/24/19 16:17 10/24/19 16:17 10/24/19 13:19 10/24/19 13:19 General appearance: Present: mild distress - EENT Eyes: Present: PERRL ENT: hearing intact, clear oral mucosa - Neck Neck: Present: supple, normal ROM - Respiratory Respiratory effort: normal Respiratory: bilateral: CTA - Cardiovascular Heart Sounds: Present: S1 & S2. Absent: rub, click - Extremities Extremities: pulses symmetrical, No edema Peripheral Pulses: within normal limits - Abdominal General gastrointestinal: Present: soft, non-tender, non-distended, normal bowel sounds Female genitourinary: Present: normal - Integumentary Integumentary: Present: clear, warm, dry - Musculoskeletal Musculoskeletal: gait normal, strength equal bilaterally - Psychiatric Psychiatric: appropriate mood/affect, intact judgment & insight - Neurologic Neurologic: CNII-XII intact, moves all extremities Results - Labs CBC & Chem 7: 10/24/19 13:43 10/24/19 13:43 Labs: Abnormal lab results 10/24/19 10/24/19 10/24/19 Range/Units 13:43 13:43 13:43 [place] % (Auto) 8.8 H (0.0-7.3) % Lymph # 1.0 L (1.2-5.4) K/mm3 Seg Neutrophils % 70.4 H (40.0-70.0) % PT 11.5 L (12.2-14.9) Sec. INR 0.84 L (0.87-1.13) BUN 19 H (7-17) mg/dL Glucose 108 H (65-100) mg/dL Assessment and Plan - Patient Problems (1) Diastolic CHF Current Visit: Yes Status: Acute Qualifiers: Heart failure chronicity: acute on chronic Qualified Code(s): I50.33 - Acute on chronic diastolic (congestive) heart failure Plan to address problem: Strict I/O, daily weight, monitor uop q shift, blood pressure control, chest x ray, supplemental oxygen, pulse oximetry (2) COPD exacerbation Current Visit: Yes Status: Acute Plan to address problem: Supplemental oxygen, nebulizer therapy, IV steroid therapy, IV antibiotic therapy, chest x ray, NIPPV as clinically indicated, (3) HTN (hypertension) Current Visit: Yes Status: Acute Qualifiers: Hypertension type: essential hypertension Qualified Code(s): I10 - Essential (primary) hypertension Plan to address problem: Monitor BP q shift, supportive care. (4) GERD (gastroesophageal reflux disease) Current Visit: Yes Status: Acute Qualifiers: Esophagitis presence: without esophagitis Qualified Code(s): K21.9 - Gastro-esophageal reflux disease without esophagitis Plan to address problem: PPI therapy, (5) Osteoarthritis Current Visit: Yes Status: Acute Qualifiers: Laterality: unspecified laterality Plan to address problem: Pain control, NSAID therapy as tolerated, (6) Pulmonary fibrosis Current Visit: Yes Status: Acute Plan to address problem: Supportive care, pulse oximetry, IV steroid therapy (7) DVT prophylaxis Current Visit: No Status: Acute Plan to address problem: SCD to BLE while in bed, Pt ambulatory
[2019-10-24] MEDS ORDERED: ONDANSETRON 4 MG/2 ML INJ IV PRN (18:02)
[2019-10-24] MEDS ORDERED: ALBUTEROL 2.5 MG/3 ML NEBU IH PRN (18:02)
--- NOTE | 2019-10-24 19:18 | Consultation ---
History of Present Illness Consult date: 10/24/19 Consult reason: shortness of breath History of present illness: Impression Acute shortness of breath Primary pulm HTN (followed by Dr. Oliveira) Baseline NYHA class 3. Nonobstructive CAD by cath 2016 Normal MPI 01/07/2019 Medical noncompliance Plan CXR negative for acute edema NTproBNP < 900 Agree 23 obs, IV steroids Encourage compliance johanna with Opsumit. Past History Past Medical History: CAD, hypertension (pulm htn), other (See HPI) Past Surgical History: hysterectomy Social history: , Lives alone. denies: smoking, alcohol abuse, prescription drug abuse Family history: hypertension Medications and Allergies Allergies Allergy/AdvReac Type Severity Reaction Status Date / Time codeine phosphate Allergy Nausea Verified 11/14/14 07:59 [From Tylenol-Codeine #3] Home Medications Medication Instructions Recorded Confirmed Last Taken Type Macitentan (Nf) [Opsumit (Nf)] 10 mg PO DAILY 03/18/18 05/05/19 05/05/19 History PARoxetine CR (NF) [Paxil (Nf)] 25 mg PO QAM 01/06/19 05/05/19 05/05/19 History ALBUTEROL Inhaler (OR & NICU) 2 puff IH QID PRN #1 inhalation 05/12/19 Unknown Rx [ProAir HFA Inhaler] Famotidine [Pepcid] 20 mg PO QDAY #30 tablet 05/12/19 Unknown Rx Fluticasone/Salmeterol [Advair 1 puff IH BID #1 disk.w.dev 05/12/19 Unknown Rx Diskus 250-50 mcg] Furosemide [Lasix TAB] 20 mg PO QDAY #30 tablet 05/12/19 Unknown Rx Prednisone [predniSONE 10 mg 10 mg PO .TAPER #1 tab.ds.pk 05/12/19 Unknown Rx (6-Day Pack, 21 Tabs)] Albuterol Sulfate [Proair 90 mcg IH Q4HR PRN #2 aer.pow.ba 10/16/19 Unknown Rx Respiclick] Benzonatate [Tessalon Perles] 100 mg PO Q8HR PRN #30 capsule 10/16/19 Unknown Rx Active Meds: Active Medications Acetaminophen (Tylenol) 650 mg PO Q4H PRN PRN Reason: Pain MILD(1-3)/Fever >100.5/MERRITT Albuterol (Proventil) 2.5 mg IH Q4H PRN PRN Reason: Shortness Of Breath Azithromycin 500 mg/ Sodium (Chloride) 250 mls @ 250 mls/hr IV Q24H JAKE; Protocol Methylprednisolone Sodium Succinate (Solu-Medrol) 40 mg IV Q12H JAKE Ondansetron HCl (Zofran) 4 mg IV Q8H PRN PRN Reason: Nausea And Vomiting Sodium Chloride (Sodium Chloride Flush Syringe 10 Ml) 10 ml IV BID JAKE Sodium Chloride (Sodium Chloride Flush Syringe 10 Ml) 10 ml IV PRN PRN PRN Reason: LINE FLUSH Review of Systems All systems: negative (stated in HPI) Physical Examination Vital Signs Temp Pulse Resp BP Pulse Ox 97.8 F 87 20 110/76 97 10/24/19 13:19 10/24/19 13:19 10/24/19 13:19 10/24/19 13:19 10/24/19 13:19 General appearance: no acute distress HEENT: Positive: PERRL, EOMI Neck: Positive: neck supple Cardiac: Positive: Reg Rate and Rhythm, S1/S2 Lungs: Positive: Normal Exam, clear to auscultation Neuro: Positive: Grossly Intact, Coordination Normal Abdomen: Positive: Unremarkable. Negative: Pulsations/Bruits Extremities: Absent: edema Results 10/24/19 13:43 10/24/19 13:43 Cardiac Enzymes 10/24/19 Range/Units 13:43 AST 22 (5-40) units/L Coagulation 10/24/19 Range/Units 13:43 PT 11.5 L (12.2-14.9) Sec. INR 0.84 L (0.87-1.13) APTT 27.6 (24.2-36.6) Sec. CBC 10/24/19 Range/Units 13:43 WBC 5.9 (4.5-11.0) K/mm3 RBC 4.09 (3.65-5.03) M/mm3 Hgb 12.9 (10.1-14.3) gm/dl Hct 38.9 (30.3-42.9) % Plt Count 181 (140-440) K/mm3 Lymph # 1.0 L (1.2-5.4) K/mm3 [place] # 0.5 (0.0-0.8) K/mm3 Eos # 0.1 (0.0-0.4) K/mm3 Baso # 0.0 (0.0-0.1) K/mm3 Comprehensive Metabolic Panel 10/24/19 Range/Units 13:43 Sodium 143 (137-145) mmol/L Potassium 4.0 (3.6-5.0) mmol/L Chloride 101.1 (98-107) mmol/L Carbon Dioxide 27 (22-30) mmol/L BUN 19 H (7-17) mg/dL Creatinine 1.2 (0.7-1.2) mg/dL Glucose 108 H (65-100) mg/dL Calcium 9.6 (8.4-10.2) mg/dL AST 22 (5-40) units/L ALT 9 (7-56) units/L Alkaline Phosphatase 55 (35-129) units/L Total Protein 7.4 (6.3-8.2) g/dL Albumin 4.0 (3.9-5) g/dL
[2019-10-24] MEDS ORDERED: AZITHROMYCIN 500 MG in SODIUM CHLORIDE 0.9% 250ML 250 ML IV SCH (20:00)
[2019-10-25] MEDS ORDERED: methylPREDNISolone Sod Succinate 40 MG/1 ML INJ IV SCH (04:00)
[2019-10-25 06:05] LABS: Basophils % (Auto) 0.1 % (0.0-1.8); Hematocrit 34.3 % (30.3-42.9); Hemoglobin 11.5 gm/dl (10.1-14.3); Lymphocytes # (Auto) 0.9 K/mm3 (1.2-5.4); Lymphocytes % (Auto) 14.7 % (13.4-35.0); Mean Corpuscular HGB Conc 34 % (30-34); Mean Corpuscular Volume 95 fl (79-97); Monocytes # (Auto) 0.3 K/mm3 (0.0-0.8); Monocytes % (Auto) 5.2 % (0.0-7.3); Platelet Count 156 K/mm3 (140-440); Red Blood Count 3.62 M/mm3 (3.65-5.03); Red Cell Distribution Width 14.5 % (13.2-15.2)
[2019-10-25 06:27] LABS: Albumin 3.6 g/dL (3.9-5); Calcium 8.7 mg/dL (8.4-10.2)
[2019-10-25] MEDS: ACETAMINOPHEN 325 MG TAB PO PRN (09:56)
--- NOTE | 2019-10-25 10:00 | Progress Note ---
Assessment and Plan Assessment and plan: 79 years old female with history of COPD, pulmonary fibrosis, congestive heart failure and chronic back pain. bib her [id number] who is a physician at another facility. [id number] is providing most of the history. She stated that she has been having shortness of breath and dr cough for the last 2 weeks. Patient was seen here one week ago and discharged from the ER. Patient stated that she did not felt better since she left. . Family are not sure if she is adherent to meds/inhalers or not. Patient lives by herself. Patient is on oxygen 2 L/m at home. Diagnosis COPD exacerbation Hypertension GERD Osteoarthritis Pulmonary fibrosis Primary pulmonary hypertension, known to Dr. [facility] of [facility] on chronic hypoxic respiratory failure Plan Chest x-ray negative for edema, there is no evidence of CHF contrary to what admitting physician has documented Cardiology note appreciated Shortness of breath is most likely from COPD exacerbation pulmonary fibrosis and pulmonary hypertension steroids, nebs, pulmonology consults, aggressive chest PT DVT prophylaxis; Lovenox History Interval history: Review of systems Constitutional: No fevers, no malaise, no joint pains CVS: No chest pain, no orthopnea, no pedal edema GI: No abdominal pain, no diarrhea, no vomiting, no constipation Respiratory: , Complaining of shortness of breath and coughing Hospitalist Physical - Physical exam Narrative exam: General.: Mild distress HEENT: Moist mucous membranes, extraocular muscles intact, no lymphadenopathy Neck: supple Cardiac: S1-S2 heard Lungs: Diminished air entry, wheezing Abdomen: soft , nontender, nondistended, bowel sounds positive Extremities: no edema clubbing or cyanosis Skin: no rash or lesions Neurologic: no gross focal deficits Psych: calm, and cooperative - Constitutional Vitals: Temp Pulse Resp BP Pulse Ox 98.0 F 62 20 125/58 98 10/25/19 07:31 10/25/19 07:31 10/25/19 07:31 10/25/19 07:31 10/25/19 08:39 General appearance: Present: no acute distress Results - Labs CBC & Chem 7: 10/25/19 05:43 10/25/19 05:43 Labs: Laboratory Last Values WBC 5.9 K/mm3 (4.5-11.0) 10/25/19 05:43 RBC 3.62 M/mm3 (3.65-5.03) L 10/25/19 05:43 Hgb 11.5 gm/dl (10.1-14.3) 10/25/19 05:43 Hct 34.3 % (30.3-42.9) 10/25/19 05:43 MCV 95 fl (79-97) 10/25/19 05:43 MCH 32 pg (28-32) 10/25/19 05:43 MCHC 34 % (30-34) 10/25/19 05:43 RDW 14.5 % (13.2-15.2) 10/25/19 05:43 Plt Count 156 K/mm3 (140-440) 10/25/19 05:43 Lymph % (Auto) 14.7 % (13.4-35.0) 10/25/19 05:43 [place] % (Auto) 5.2 % (0.0-7.3) 10/25/19 05:43 Eos % (Auto) 0.0 % (0.0-4.3) 10/25/19 05:43 Baso % (Auto) 0.1 % (0.0-1.8) 10/25/19 05:43 Lymph # 0.9 K/mm3 (1.2-5.4) L 10/25/19 05:43 [place] # 0.3 K/mm3 (0.0-0.8) 10/25/19 05:43 Eos # 0.0 K/mm3 (0.0-0.4) 10/25/19 05:43 Baso # 0.0 K/mm3 (0.0-0.1) 10/25/19 05:43 Seg Neutrophils % 80.0 % (40.0-70.0) H 10/25/19 05:43 Seg Neutrophils # 4.7 K/mm3 (1.8-7.7) 10/25/19 05:43 PT 11.5 Sec. (12.2-14.9) L 10/24/19 13:43 INR 0.84 (0.87-1.13) L 10/24/19 13:43 APTT 27.6 Sec. (24.2-36.6) 10/24/19 13:43 Sodium 139 mmol/L (137-145) 10/25/19 05:43 Potassium 3.7 mmol/L (3.6-5.0) 10/25/19 05:43 Chloride 98.0 mmol/L (98-107) 10/25/19 05:43 Carbon Dioxide 30 mmol/L (22-30) 10/25/19 05:43 Anion Gap 15 mmol/L 10/25/19 05:43 BUN 23 mg/dL (7-17) H 10/25/19 05:43 Creatinine 1.3 mg/dL (0.7-1.2) H 10/25/19 05:43 Estimated GFR 48 ml/min 10/25/19 05:43 BUN/Creatinine Ratio 18 % 10/25/19 05:43 Glucose 148 mg/dL (65-100) H 10/25/19 05:43 POC Glucose 142 (70-105) H 10/25/19 07:34 Calcium 8.7 mg/dL (8.4-10.2) 10/25/19 05:43 Total Bilirubin 0.40 mg/dL (0.1-1.2) 10/25/19 05:43 AST 17 units/L (5-40) 10/25/19 05:43 ALT 7 units/L (7-56) 10/25/19 05:43 Alkaline Phosphatase 45 units/L (35-129) 10/25/19 05:43 NT-Pro-B Natriuret Pep 827.1 pg/mL (0-900) 10/24/19 13:43 Total Protein 6.2 g/dL (6.3-8.2) L 10/25/19 05:43 Albumin 3.6 g/dL (3.9-5) L 10/25/19 05:43 Albumin/Globulin Ratio 1.4 % 10/25/19 05:43 Active Medications - Current Medications Current Medications: Generic Name Dose Route Start Last Admin Trade Name Freq PRN Reason Stop Dose Admin Acetaminophen 650 mg 10/24/19 18:02 10/25/19 09:56 Tylenol PO 650 mg Q4H PRN Administration Pain MILD(1-3)/Fever >100.5/MERRITT Albuterol 2.5 mg 10/24/19 18:02 Proventil IH Q4H PRN Shortness Of Breath Azithromycin 500 mg/ Sodium 250 mls @ 250 mls/hr 10/24/19 20:00 10/24/19 22:18 Chloride IV 10/28/19 20:59 250 mls/hr Q24H JAKE Administration Protocol Methylprednisolone Sodium Succinate 40 mg 10/25/19 04:00 10/25/19 05:49 Solu-Medrol IV 40 mg Q12H JAKE Administration Ondansetron HCl 4 mg 10/24/19 18:02 Zofran IV Q8H PRN Nausea And Vomiting Sodium Chloride 10 ml 10/24/19 22:00 10/24/19 22:18 Sodium Chloride Flush Syringe 10 Ml IV 10 ml BID JAKE Administration Sodium Chloride 10 ml 10/24/19 18:02 Sodium Chloride Flush Syringe 10 Ml IV PRN PRN LINE FLUSH
--- NOTE | 2019-10-25 11:20 | Progress Note ---
Assessment and Plan Shortness of breath Hx of COPD Hx of Pulmonary Htn on Opsumit as an outpatient Pulmonary Fibrosis Hypertension Normal LVEF by echo 04/2019. Normal thallium stress test 12/2018. [facility] 2018 documents moderate pulmonary hypertension, mean PA pressure of 35 mmHg. C 2013 documents mild obstructive atherosclerosis, normal left ventricle systo lic function with ejection fraction 60-65%. Subjective Date of service: 10/25/19 Interval history: Patient is resting in bed comfortably. No distress noted. Patient complains of headaches. Objective Vital Signs Temp Pulse Pulse Pulse Pulse Resp Resp 10/25/19 10:00 95 H 10/25/19 08:39 10/25/19 07:31 98.0 F 62 20 10/25/19 06:30 66 10/25/19 02:20 97.8 F 71 18 10/25/19 00:01 88 18 10/24/19 22:42 10/24/19 20:34 97.9 F 88 18 10/24/19 19:30 91 H 27 H 10/24/19 19:21 99 H 33 H 10/24/19 19:14 86 24 10/24/19 19:10 88 22 10/24/19 19:00 97 H 21 10/24/19 18:50 88 19 10/24/19 18:40 102 H 31 H 10/24/19 18:30 100 H 26 H 10/24/19 18:20 97 H 27 H 10/24/19 18:10 100 H 21 10/24/19 18:00 99 H 22 10/24/19 17:50 96 H 27 H 10/24/19 17:40 91 H 22 10/24/19 17:30 87 19 10/24/19 17:20 89 20 10/24/19 17:10 87 20 10/24/19 17:00 95 H 18 10/24/19 16:50 88 13 10/24/19 16:40 91 H 21 10/24/19 16:30 79 14 10/24/19 16:20 83 10 L 10/24/19 16:17 84 86 18 10/24/19 16:10 90 16 10/24/19 16:06 78 23 10/24/19 13:19 97.8 F 87 20 10/24/19 13:09 97.8 F 94 H 18 Resp BP BP Pulse Ox 10/25/19 10:00 10/25/19 08:39 98 10/25/19 07:31 125/58 98 10/25/19 06:30 10/25/19 02:20 125/55 96 10/25/19 00:01 95 10/24/19 22:42 94 10/24/19 20:34 103/55 95 10/24/19 19:30 133/64 94 10/24/19 19:21 119/74 97 10/24/19 19:14 119/74 95 10/24/19 19:10 119/74 96 10/24/19 19:00 140/64 97 10/24/19 18:50 140/64 96 10/24/19 18:40 140/64 95 10/24/19 18:30 131/56 97 10/24/19 18:20 131/56 95 10/24/19 18:10 131/56 98 10/24/19 18:00 114/69 131/56 96 10/24/19 17:50 114/69 93 10/24/19 17:40 114/69 91 10/24/19 17:30 124/65 97 10/24/19 17:20 124/65 95 10/24/19 17:10 124/65 97 10/24/19 17:00 121/67 95 10/24/19 16:50 121/67 95 10/24/19 16:40 121/67 98 10/24/19 16:30 120/70 96 10/24/19 16:20 120/70 98 10/24/19 16:17 16 10/24/19 16:10 120/70 97 10/24/19 16:06 97 10/24/19 13:19 110/76 97 10/24/19 13:09 110/76 96 - Physical Examination General: No Apparent Distress HEENT: Positive: PERRL Neck: Positive: trachea midline Cardiac: Positive: Reg Rate and Rhythm Lungs: Positive: Decreased Breath Sounds Neuro: Positive: Grossly Intact Extremities: Absent: edema - Labs and Meds Cardiac Enzymes 10/24/19 10/25/19 Range/Units 13:43 05:43 AST 22 17 (5-40) units/L Coagulation 10/24/19 Range/Units 13:43 PT 11.5 L (12.2-14.9) Sec. INR 0.84 L (0.87-1.13) APTT 27.6 (24.2-36.6) Sec. CBC 10/24/19 10/25/19 Range/Units 13:43 05:43 WBC 5.9 5.9 (4.5-11.0) K/mm3 RBC 4.09 3.62 L (3.65-5.03) M/mm3 Hgb 12.9 11.5 (10.1-14.3) gm/dl Hct 38.9 34.3 (30.3-42.9) % Plt Count 181 156 (140-440) K/mm3 Lymph # 1.0 L 0.9 L (1.2-5.4) K/mm3 [place] # 0.5 0.3 (0.0-0.8) K/mm3 Eos # 0.1 0.0 (0.0-0.4) K/mm3 Baso # 0.0 0.0 (0.0-0.1) K/mm3 Comprehensive Metabolic Panel 10/24/19 10/25/19 Range/Units 13:43 05:43 Sodium 143 139 (137-145) mmol/L Potassium 4.0 3.7 (3.6-5.0) mmol/L Chloride 101.1 98.0 (98-107) mmol/L Carbon Dioxide 27 30 (22-30) mmol/L BUN 19 H 23 H (7-17) mg/dL Creatinine 1.2 1.3 H (0.7-1.2) mg/dL Glucose 108 H 148 H (65-100) mg/dL Calcium 9.6 8.7 (8.4-10.2) mg/dL AST 22 17 (5-40) units/L ALT 9 7 (7-56) units/L Alkaline Phosphatase 55 45 (35-129) units/L Total Protein 7.4 6.2 L (6.3-8.2) g/dL Albumin 4.0 3.6 L (3.9-5) g/dL
--- NOTE | 2019-10-25 11:24 | Event Note ---
she refused IV line -switch steroids to PO
[2019-10-25] MEDS: predniSONE 20 MG TAB PO SCH (12:36)
[2019-10-25] MEDS ORDERED: guaiFENesin DM 200/20 MG ORAL LIQD 10 ML PO PRN (13:03)
--- NOTE | 2019-10-25 13:46 | Event Note ---
Complains of headache and cough Headache medications and cough meds ordered
[2019-10-25] MEDS: BUTALB/ACETAMINOPHEN/CAFFEINE TAB PO PRN ×2 (14:53→21:38)
[2019-10-25] MEDS: BENZONATATE 100 MG CAP PO SCH ×2 (14:53→21:38)
[2019-10-25] MEDS: AZITHROMYCIN 250 MG TAB PO SCH (16:25)
[2019-10-25] MEDS ORDERED: ENOXAPARIN 40 MG/0.4 ML INJ SUB-Q SCH (22:00)
[2019-10-26] MEDS: ACETAMINOPHEN 325 MG TAB PO PRN (01:37)
[2019-10-26] MEDS: BENZONATATE 100 MG CAP PO SCH ×3 (05:51→22:48)
--- NOTE | 2019-10-26 09:38 | Consultation ---
History of Present Illness Consult date: 10/26/19 Requesting physician: CARMEN PLUNKETT Reason for consult: COPD, pulmonary hypertension History of present illness: 79 y/o female admitted for the past 3 days with shortness of breath. Follows Dr. Kaylynn Romero for COPD. Per the chart, patient's Pulm HTN is managed by [facility]. She carries a diagnosis of Pulmonary fibrosis. Admitted 3 days ago with shortness of breath but consulted on Friday evening by IMS. Past History Past Medical History: CAD, hypertension (pulm htn), other (See HPI) Past Surgical History: hysterectomy Social history: , Lives alone. denies: smoking, alcohol abuse, prescription drug abuse Family history: hypertension Medications and Allergies Allergies Allergy/AdvReac Type Severity Reaction Status Date / Time codeine phosphate Allergy Nausea Verified 11/14/14 07:59 [From Tylenol-Codeine #3] Home Medications Medication Instructions Recorded Confirmed Last Taken Type Benzonatate [Tessalon Perles] 200 mg PO Q8HR PRN 10/24/19 10/24/19 Unknown History Duloxetine HCl 60 mg PO DAILY 10/24/19 10/24/19 Unknown History Furosemide [Lasix] 20 mg PO QDAY 10/24/19 10/24/19 Unknown History Macitentan [Opsumit] 10 mg PO DAILY 10/24/19 10/24/19 Unknown History Simethicone [Bicarsim Forte] 125 mg PO DAILY 10/24/19 10/24/19 Unknown History Valsartan 80 mg PO DAILY 10/24/19 10/24/19 Unknown History diazePAM [Diazepam] 10 mg PO DAILY 10/24/19 10/24/19 Unknown History Active Meds: Active Medications Acetaminophen (Tylenol) 650 mg PO Q4H PRN PRN Reason: Pain MILD(1-3)/Fever >100.5/MERRITT Last Admin: 10/26/19 01:37 Dose: 650 mg Documented by: Acetaminophen/Butalbital/Caffeine (Fioricet) 2 tab PO Q4H PRN PRN Reason: Headache Last Admin: 10/25/19 21:38 Dose: 2 tab Documented by: Albuterol (Proventil) 2.5 mg IH Q4H PRN PRN Reason: Shortness Of Breath Azithromycin (Zithromax) 500 mg PO QDAY JAKE Stop: 10/28/19 10:01 Last Admin: 10/25/19 16:25 Dose: Not Given Documented by: Benzonatate (Tessalon Perles) 100 mg PO Q8HR [facility] Last Admin: 10/26/19 05:51 Dose: 100 mg Documented by: Enoxaparin Sodium (Enoxaparin) 30 mg SUB-Q QHS [facility] Guaifenesin (Guaifenesin Dm Syrup) 20 ml PO Q4H PRN PRN Reason: Cough Ondansetron HCl (Zofran) 4 mg IV Q8H PRN PRN Reason: Nausea And Vomiting Prednisone (Deltasone) 60 mg PO QDAY [facility] Last Admin: 10/25/19 12:36 Dose: 60 mg Documented by: Sodium Chloride (Sodium Chloride Flush Syringe 10 Ml) 10 ml IV BID [facility] Last Admin: 10/25/19 21:39 Dose: 10 ml Documented by: Sodium Chloride (Sodium Chloride Flush Syringe 10 Ml) 10 ml IV PRN PRN PRN Reason: LINE FLUSH Review of Systems All systems: negative Physical Examination Vital signs: Vital Signs Temp Pulse Resp BP Pulse Ox 97.8 F 94 H 18 110/76 96 10/24/19 13:09 10/24/19 13:09 10/24/19 13:09 10/24/19 13:09 10/24/19 13:09 General appearance: no acute distress, alert Eyes: non-icteric ENT: oropharynx moist Effort: normal Ascultation: Bilateral: rales (dry at the bases bilaterally ) Percussion: Bilateral: not dull Cardiovascular: regular rate and rhythm Gastrointestinal: soft Results - Laboratory Findings CBC and BMP: 10/25/19 05:43 10/25/19 05:43 PT/INR, D-dimer PT 11.5 Sec. (12.2-14.9) L 10/24/19 13:43 INR 0.84 (0.87-1.13) L 10/24/19 13:43 Abnormal lab findings: Abnormal Labs 10/24/19 10/24/19 10/24/19 13:43 13:43 13:43 RBC [place] % (Auto) 8.8 H Lymph # 1.0 L Seg Neutrophils % 70.4 H PT 11.5 L INR 0.84 L BUN 19 H Creatinine Glucose 108 H POC Glucose Total Protein Albumin 10/25/19 10/25/19 10/25/19 05:43 05:43 07:34 RBC 3.62 L [place] % (Auto) Lymph # 0.9 L Seg Neutrophils % 80.0 H PT INR BUN 23 H Creatinine 1.3 H Glucose 148 H POC Glucose 142 H Total Protein 6.2 L Albumin 3.6 L 10/25/19 10/25/19 11:19 22:15 RBC [place] % (Auto) Lymph # Seg Neutrophils % PT INR BUN Creatinine Glucose POC Glucose 157 H 132 H Total Protein Albumin - Diagnostic Findings Chest x-ray: image reviewed (Hyperinflation with bilateral lower lobe airspace disease. Does not have a typical IPF pattern. Agree with blunting of cpa could be from thickening vs fluid.) Assessment and Plan 79 y/o female with Pulm HTN, most likely secondary to COPD and ILD admitted with dypsnea. 1. Per chart [facility] manages pulmonary hypertension. Sure that opsumit is not on formulary so will defer to them. 2. In regards to ILD and COPD, family unsure of patient regimen and she follows a physician that is not at this hospital. If she truly has IPF, then steroids show no benefit in this disease state. Suggest rapid taper from oral dosing started by Dr. Wilson. 3. Could consider some long acting nebulizer treatments if family feels patient is not taking her medications as prescribed 4. Continue supplemental O2 5. Continue diuretic therapy, may need to increase to 40 daily to achieve net negative state. Also good for pulmonary hypertension but will again defer to cards as they have been managing this as an outpatient. Thank you for this consult. Will continue to follow with you.
[2019-10-26] MEDS: BUTALB/ACETAMINOPHEN/CAFFEINE TAB PO PRN ×2 (09:48→17:56)
[2019-10-26] MEDS: AZITHROMYCIN 250 MG TAB PO SCH (09:50)
[2019-10-26] MEDS: predniSONE 20 MG TAB PO SCH (09:50)
--- NOTE | 2019-10-26 12:58 | Progress Note ---
Assessment and Plan Shortness of breath Hx of COPD Hx of Pulmonary Htn on Opsumit as an outpatient Pulmonary Fibrosis Hypertension Normal LVEF by echo 04/2019. Normal thallium stress test 12/2018. RHC 2018 documents moderate pulmonary hypertension, mean PA pressure of 35 mmHg. LHC 2013 documents mild obstructive atherosclerosis, normal left ventricle systo lic function with ejection fraction 60-65%. Conservative cardiac management. Subjective Date of service: 10/26/19 Interval history: Patient is resting in bed comfortably. No cardiac complaints. Objective Vital Signs Temp Pulse Pulse Pulse Resp Resp BP 10/26/19 07:09 98.5 F 66 18 96/53 10/26/19 01:50 97.3 F L 64 20 130/47 10/25/19 19:55 96 H 18 10/25/19 19:48 95 H 10/25/19 19:43 10/25/19 19:38 98.6 F 89 20 105/62 10/25/19 19:34 75 18 Pulse Ox 10/26/19 07:09 93 10/26/19 01:50 84 10/25/19 19:55 96 10/25/19 19:48 10/25/19 19:43 98 10/25/19 19:38 98 10/25/19 19:34 98 - Physical Examination General: No Apparent Distress HEENT: Positive: PERRL Neck: Positive: trachea midline Cardiac: Positive: Reg Rate and Rhythm Lungs: Positive: Decreased Breath Sounds Neuro: Positive: Grossly Intact Extremities: Absent: edema
--- NOTE | 2019-10-26 13:24 | Progress Note ---
Assessment and Plan Assessment and plan: Patient is a 79 years old female with history of COPD, pulmonary fibrosis, congestive heart failure and chronic back pain. bib her [id number] who is a physician at another facility. Luytkjmu-[id number]-ppm is providing most of the history. She stated that she has been having shortness of breath and dr cough for the last 2 weeks. Patient was seen here one week ago and discharged from the ER. Patient stated that she did not felt better since she left. . Family are not sure if she is adherent to meds/inhalers or not. Patient lives by herself. Patient is on oxygen 2 L/m at home. Diagnosis Acute COPD exacerbation: treat with iv steroids, abx, nebs Hypertension: low salt diet GERD: ppi as needed Osteoarthritis: tylenol Pulmonary fibrosis: o2 Primary pulmonary hypertension, known to Dr. Oliveira of [facility] on chronic hypoxic respiratory failure DVT prophylaxis; Lovenox History Interval history: Patient was seen and examined. Follow-up on current diagnosis of COPD, still SOB. No overnight events reported to me. Patient denies any chest pain, nausea/vomiting or severe headaches. Imaging, nursing note, chart, labs and old chart reviewed. Discussed with patient. Hospitalist Physical - Physical exam Narrative exam: Gen: WDWN, NAD, Awake, Alert, Orientated HEENT: NCAT, EOMI, PERRL, OP Clear Neck: supple, no adenopathy, no thyromegaly, no JVD CVS/Heart: RRR, normal S1S2, pulses present bilaterally Chest/Lungs: diminished bs bilateral, Symmetrical chest expansion, good air entry bilaterally GI/Abdomen: soft, NTND, good bowel sounds, no guarding or rebound /Bladder: no suprapubic tenderness, no CVA or paraspinal tenderness Extermity/Skin: no c/c/e, no obvious rash MSK: FROM x 4 Neuro: CN 2-12 grossly intact, no new focal deficits Psych: calm - Constitutional Vitals: Temp Pulse Resp BP Pulse Ox 98.5 F 66 18 96/53 93 10/26/19 07:09 10/26/19 07:09 10/26/19 07:09 10/26/19 07:09 10/26/19 07:09 General appearance: Present: no acute distress Results - Labs CBC & Chem 7: 10/25/19 05:43 10/25/19 05:43 Labs: Laboratory Last Values WBC 5.9 K/mm3 (4.5-11.0) 10/25/19 05:43 RBC 3.62 M/mm3 (3.65-5.03) L 10/25/19 05:43 Hgb 11.5 gm/dl (10.1-14.3) 10/25/19 05:43 Hct 34.3 % (30.3-42.9) 10/25/19 05:43 MCV 95 fl (79-97) 10/25/19 05:43 MCH 32 pg (28-32) 10/25/19 05:43 MCHC 34 % (30-34) 10/25/19 05:43 RDW 14.5 % (13.2-15.2) 10/25/19 05:43 Plt Count 156 K/mm3 (140-440) 10/25/19 05:43 Lymph % (Auto) 14.7 % (13.4-35.0) 10/25/19 05:43 [place] % (Auto) 5.2 % (0.0-7.3) 10/25/19 05:43 Eos % (Auto) 0.0 % (0.0-4.3) 10/25/19 05:43 Baso % (Auto) 0.1 % (0.0-1.8) 10/25/19 05:43 Lymph # 0.9 K/mm3 (1.2-5.4) L 10/25/19 05:43 Payne # 0.3 K/mm3 (0.0-0.8) 10/25/19 05:43 Eos # 0.0 K/mm3 (0.0-0.4) 10/25/19 05:43 Baso # 0.0 K/mm3 (0.0-0.1) 10/25/19 05:43 Seg Neutrophils % 80.0 % (40.0-70.0) H 10/25/19 05:43 Seg Neutrophils # 4.7 K/mm3 (1.8-7.7) 10/25/19 05:43 PT 11.5 Sec. (12.2-14.9) L 10/24/19 13:43 INR 0.84 (0.87-1.13) L 10/24/19 13:43 APTT 27.6 Sec. (24.2-36.6) 10/24/19 13:43 Sodium 139 mmol/L (137-145) 10/25/19 05:43 Potassium 3.7 mmol/L (3.6-5.0) 10/25/19 05:43 Chloride 98.0 mmol/L (98-107) 10/25/19 05:43 Carbon Dioxide 30 mmol/L (22-30) 10/25/19 05:43 Anion Gap 15 mmol/L 10/25/19 05:43 BUN 23 mg/dL (7-17) H 10/25/19 05:43 Creatinine 1.3 mg/dL (0.7-1.2) H 10/25/19 05:43 Estimated GFR 48 ml/min 10/25/19 05:43 BUN/Creatinine Ratio 18 % 10/25/19 05:43 Glucose 148 mg/dL (65-100) H 10/25/19 05:43 POC Glucose 132 (70-105) H 10/25/19 22:15 Calcium 8.7 mg/dL (8.4-10.2) 10/25/19 05:43 Total Bilirubin 0.40 mg/dL (0.1-1.2) 10/25/19 05:43 AST 17 units/L (5-40) 10/25/19 05:43 ALT 7 units/L (7-56) 10/25/19 05:43 Alkaline Phosphatase 45 units/L (35-129) 10/25/19 05:43 NT-Pro-B Natriuret Pep 827.1 pg/mL (0-900) 10/24/19 13:43 Total Protein 6.2 g/dL (6.3-8.2) L 10/25/19 05:43 Albumin 3.6 g/dL (3.9-5) L 10/25/19 05:43 Albumin/Globulin Ratio 1.4 % 10/25/19 05:43 Active Medications - Current Medications Current Medications: Generic Name Dose Route Start Last Admin Trade Name Freq PRN Reason Stop Dose Admin Acetaminophen 650 mg 10/24/19 18:02 10/26/19 01:37 Tylenol PO 650 mg Q4H PRN Administration Pain MILD(1-3)/Fever >100.5/MERRITT Acetaminophen/Butalbital/Caffeine 2 tab 10/25/19 13:03 10/26/19 09:48 Fioricet PO 2 tab Q4H PRN Administration Headache Albuterol 2.5 mg 10/24/19 18:02 Proventil IH Q4H PRN Shortness Of Breath Azithromycin 500 mg 10/25/19 16:00 10/26/19 09:50 Zithromax PO 10/28/19 10:01 500 mg QDAY JAKE Administration Benzonatate 100 mg 10/25/19 14:00 10/26/19 05:51 Tessalon Perles PO 100 mg Q8HR JAKE Administration Enoxaparin Sodium 30 mg 10/26/19 22:00 Enoxaparin SUB-Q QHS JAKE Guaifenesin 20 ml 10/25/19 13:03 Guaifenesin Dm Syrup PO Q4H PRN Cough Ondansetron HCl 4 mg 10/24/19 18:02 Zofran IV Q8H PRN Nausea And Vomiting Prednisone 60 mg 10/25/19 13:00 10/26/19 09:50 Deltasone PO 60 mg QDAY JAKE Administration Sodium Chloride 10 ml 10/24/19 22:00 10/26/19 09:57 Sodium Chloride Flush Syringe 10 Ml IV Not Given BID JAKE Sodium Chloride 10 ml 10/24/19 18:02 Sodium Chloride Flush Syringe 10 Ml IV PRN PRN LINE FLUSH Nutrition/Malnutrition Assess - Dietary Evaluation Nutrition/Malnutrition Findings: Nutrition Notes Start: 10/25/19 13:33 Freq: Status: Active Protocol: Document 10/25/19 13:33 LM (Rec: 10/25/19 13:48 LM [id number]) Nutrition Notes 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 Pt stated she eats 1 meal a day at home. Pt ate toast and orange juice for breakfast. Pt reported her UBW as 144 lb (65.45kg). Pt stated she has noticed wt loss since 6 months ago. Noticed mild orbital wasting. Pt would like Ensure. Burn Absent Trauma Absent GI Symptoms None Current % PO Poor (25-49%) Minimum of two criteria Yes Energy Intake (non-severe) <75% Estimated Energy Requirement >7 days Body Fat Depletion Mild depletion (non-severe) #2 Nutrition Diagnosis Inadequate oral intake Etiology decreased appetite secondary to chronic illness As Evidenced by Signs and Symptoms Pt eat 1 meal a day at home, consuming less than 50% of meals, wt loss #1 Nutrition Diagnosis Malnutrition Etiology chronic illness As Evidenced by Signs and Symptoms pt eating 1 meal a day [employer], 3. 8% wt loss, mild fat wasting Is patient on ventilator? No Is Patient Ambulatory and/or Out of Bed No REE-([facility]-confined to bed) 1276.728 Kcal/Kg value to use for calculation 25 Approximate Energy Requirements Using 1575 kcal/Kg Calculation Used for Recommendations Kcal/kg Additional Notes Protein: 76-95g (1.2-1.5 g/kg) Fluid: 1 ml/kcal Nutrition Intervention Change Diet Order: Continue cardiac Add Supplement/Snack (indicate name/kcal Ensure enlive vanilla BID /protein ) Provides kCal: 700 Provides Protein (gm) 40 Goal #1 Meet at least 80% of energy and protein needs Anticipated Discharge Needs: Cardiac diet Follow-Up By: 10/27/19 Additional Comments F/U for PO/ONS intakes
[2019-10-26] MEDS ORDERED: BENZONATATE 100 MG CAP PO PRN (16:41)
[2019-10-26] MEDS ORDERED: NON-FORMULARY EACH (Diazepam [Diazepam] 10 MG) PO PRN (16:41)
[2019-10-26] MEDS ORDERED: NON-FORMULARY EACH (Duloxetine Hcl [Duloxetine Hcl] 60 MG) PO SCH (16:45)
[2019-10-26] MEDS ORDERED: VALSARTAN 80 MG PO SCH (16:45)
[2019-10-26] MEDS ORDERED: MACITENTAN 10 MG PO SCH (16:45)
[2019-10-26] MEDS ORDERED: diazePAM 5 MG TAB PO PRN (17:18)
[2019-10-26] MEDS: VALSARTAN 40 MG TAB PO SCH (17:51)
[2019-10-26] MEDS: DULoxetine 30 MG CAP PO SCH (17:56)
[2019-10-26] MEDS: cefTRIAXone/NS 1 GM/50 ML 1 GM/50 ML BAG IV SCH (22:00)
[2019-10-26] MEDS: ENOXAPARIN 30 MG/0.3 ML INJ SUB-Q SCH (22:48)
[2019-10-27] MEDS: BENZONATATE 100 MG CAP PO SCH (07:18)
[2019-10-27] MEDS: predniSONE 20 MG TAB PO SCH (09:25)
[2019-10-27] MEDS: DULoxetine 30 MG CAP PO SCH (09:25)
[2019-10-27] MEDS: FUROSEMIDE 20 MG TAB PO SCH (09:25)
[2019-10-27] MEDS: AZITHROMYCIN 250 MG TAB PO SCH (09:26)
[2019-10-27] MEDS: VALSARTAN 40 MG TAB PO SCH (09:28)
[2019-10-27] MEDS: cefTRIAXone/NS 1 GM/50 ML 1 GM/50 ML BAG IV SCH (09:29)
--- NOTE | 2019-10-27 10:45 | Progress Note ---
<MARIBELL MENJIVAR - Last Filed: 10/27/19 10:43> Assessment and Plan Shortness of breath Hx of COPD Hx of Pulmonary Htn on Opsumit as an outpatient Pulmonary Fibrosis Hypertension Normal LVEF by echo 04/2019. Normal thallium stress test 12/2018. RHC 2018 documents moderate pulmonary hypertension, mean PA pressure of 35 mmHg. LHC 2013 documents mild obstructive atherosclerosis, normal left ventricle systolic function with ejection fraction 60-65%. No active cardiac issues. We will sign off. Subjective Date of service: 10/27/19 Interval history: Patient is resting in bed comfortably. She has no cardiac complaints. Objective Vital Signs Temp Pulse Resp BP Pulse Ox 10/27/19 09:28 70 105/62 10/27/19 08:45 64 10/27/19 07:35 98.2 F 62 18 129/61 94 10/27/19 02:31 65 92 10/27/19 01:47 98.6 F 18 125/66 10/26/19 22:04 76 95 10/26/19 19:39 97.3 F L 20 134/62 10/26/19 17:51 61 122/66 10/26/19 13:01 98.3 F 74 18 122/68 99 - Physical Examination General: No Apparent Distress HEENT: Positive: PERRL Neck: Positive: trachea midline Cardiac: Positive: Reg Rate and Rhythm Lungs: Positive: Decreased Breath Sounds Neuro: Positive: Grossly Intact Extremities: Absent: edema <LARRY RUSSELL - Last Filed: 10/27/19 15:28> Assessment and Plan I've seen and evaluated the patient agree with the assessment and plan. Patient has a normal left ventricular ejection fraction by echo this year. Patient also has a thallium stress test done this year that shows normal perfusion scan. No further cardiac recommendations at this time. Thank you for the consult. Please reconsult as needed. Objective Vital Signs Temp Pulse Pulse Resp BP Pulse Ox 10/27/19 13:45 98.1 F 67 18 134/63 99 10/27/19 12:02 100 10/27/19 11:47 70 94 10/27/19 09:28 70 105/62 10/27/19 08:45 64 10/27/19 07:35 98.2 F 62 18 129/61 94 10/27/19 02:31 65 92 10/27/19 01:47 98.6 F 18 125/66 10/26/19 22:04 76 95 10/26/19 19:39 97.3 F L 20 134/62 10/26/19 17:51 61 122/66
[2019-10-27] MEDS ORDERED: predniSONE 20 MG TAB PO SCH (14:55)
--- NOTE | 2019-10-27 15:00 | Progress Note ---
Assessment and Plan 79 y/o female with Pulm HTN, most likely secondary to COPD and ILD admitted with dypsnea. No new recommendations today, with the exception of weaning FiO2 to off as tolerated, unless patient already on Home O2. 1. Per chart [facility] manages pulmonary hypertension. Sure that opsumit is not on formulary so will defer to them. 2. In regards to ILD and COPD, family unsure of patient regimen and she follows a physician that is not at this hospital. If she truly has IPF, then steroids show no benefit in this disease state. Suggest rapid taper from oral dosing started by Dr. Ag 3. Could consider some long acting nebulizer treatments if family feels patient is not taking her medications as prescribed 4. Continue supplemental O2 5. Continue diuretic therapy, may need to increase to 40 daily to achieve net negative state. Also good for pulmonary hypertension but will again defer to cards as they have been managing this as an outpatient. Thank you for this consult. Will continue to follow with you. Subjective Date of service: 10/27/19 Interval history: Patient satting 100% on 1.5 liters NC per RT note. Asleep. No family present Objective Vital Signs - 12hr 10/27/19 10/27/19 10/27/19 07:35 08:45 09:28 Temperature 98.2 F Pulse Rate 62 64 70 Pulse Rate [ Right Brachial] Respiratory 18 Rate Blood Pressure 129/61 105/62 O2 Sat by Pulse 94 Oximetry 10/27/19 10/27/19 10/27/19 11:47 12:02 13:45 Temperature 98.1 F Pulse Rate 67 Pulse Rate [ 70 Right Brachial] Respiratory 18 Rate Blood Pressure 134/63 O2 Sat by Pulse 94 100 99 Oximetry Constitutional: no acute distress, alert Eyes: non-icteric ENT: oropharynx moist Effort: normal Ascultation: Bilateral: rales (dry at the bases bilaterally ) Percussion: Bilateral: not dull Cardiovascular: regular rate and rhythm Gastrointestinal: soft CBC and BMP: 10/25/19 05:43 10/25/19 05:43 ABG, PT/INR, D-dimer: PT/INR, D-dimer PT 11.5 Sec. (12.2-14.9) L 10/24/19 13:43 INR 0.84 (0.87-1.13) L 10/24/19 13:43 Abnormal lab findings: Abnormal Labs 10/24/19 10/24/19 10/24/19 13:43 13:43 13:43 RBC [place] % (Auto) 8.8 H Lymph # 1.0 L Seg Neutrophils % 70.4 H PT 11.5 L INR 0.84 L BUN 19 H Creatinine Glucose 108 H POC Glucose Total Protein Albumin 10/25/19 10/25/19 10/25/19 05:43 05:43 07:34 RBC 3.62 L [place] % (Auto) Lymph # 0.9 L Seg Neutrophils % 80.0 H PT INR BUN 23 H Creatinine 1.3 H Glucose 148 H POC Glucose 142 H Total Protein 6.2 L Albumin 3.6 L 10/25/19 10/25/19 11:19 22:15 RBC [place] % (Auto) Lymph # Seg Neutrophils % PT INR BUN Creatinine Glucose POC Glucose 157 H 132 H Total Protein Albumin
--- NOTE | 2019-10-27 16:06 | Discharge Summary ---
Providers - Providers Date of Admission: 10/26/19 10:22 Date of discharge: 10/28/19 Attending physician: MAIKEL KISER 10/25/19 08:57 Physical Therapy Evaluation and Treat [CONS] Routine Comment: Reason For Exam: Weakness 10/25/19 16:20 Consult to Physician [CONS] Routine Comment: called office/ yelena Consulting Provider: TASHI KIM Physician Instructions: Reason For Exam: copd, pulm htn 10/25/19 16:21 Consult to Physician [CONS] Routine Comment: doctor has seen the patient already/ yelena Consulting Provider: ADAM BURCIAGA Physician Instructions: Reason For Exam: pulm htn [facility] Condition: Stable Hospital course: Patient is a 79 years old female with history of COPD, pulmonary fibrosis, congestive heart failure and chronic back pain. Patient is on oxygen 2 L/m at home. Arturo ([phone]), daughter in-law, paged me via personal pager (I do not know how she obtained my personal pager) to discuss her mother in law care. Then, the next day, Dr. Morris proceeded to page me multiple times throughout the day. Patient initially refused iv placement, so abx was delayed. She is back to home baseline o2 today. Dr. Morris told me that patient is non-adherent to medical recommendations, patient refused pulmonary rehab. Discharge Diagnoses: Acute COPD exacerbation: treated with iv steroids, abx, nebs Hypertension: low salt diet GERD: ppi as needed Osteoarthritis: tylenol Pulmonary fibrosis: o2 Primary pulmonary hypertension, known to Dr. Oliveira of [facility] on chronic hypoxic respiratory failure DVT prophylaxis; Lovenox Disposition: TO HOME OR SELFCARE Time spent for discharge: 32 minutes Core Measure Documentation - Palliative Care Palliative Care/ Comfort Measures: Not Applicable - Core Measures Any of the following diagnoses?: none - VTE Discharge Requirements Deep Vein Thrombosis/Pulmonary Embolism Present on Admission: No Has pt received <5 days of overlap therapy or INR<2.0: No Anticoagulant overlap therapy prescribed at discharge: No Contraindication No Overlap Therapy order at DC: Not Indicated Exam - Physical Exam Narrative exam: Gen: WDWN, NAD, Awake, Alert, Orientated HEENT: NCAT, EOMI, PERRL, OP Clear Neck: supple, no adenopathy, no thyromegaly, no JVD CVS/Heart: RRR, normal S1S2, pulses present bilaterally Chest/Lungs: diminished bs bilateral, Symmetrical chest expansion, good air entry bilaterally GI/Abdomen: soft, NTND, good bowel sounds, no guarding or rebound /Bladder: no suprapubic tenderness, no CVA or paraspinal tenderness Extermity/Skin: no c/c/e, no obvious rash MSK: FROM x 4 Neuro: CN 2-12 grossly intact, no new focal deficits Psych: calm - Constitutional Vitals: Temp Pulse Resp BP Pulse Ox 98.1 F 67 18 134/63 99 10/27/19 13:45 10/27/19 13:45 10/27/19 13:45 10/27/19 13:45 10/27/19 13:45 Plan Activity: other (no strenous activity ) Additional Instructions: See Dr. Burciaga about increasing Lasix Follow up with: [facility] MATHEW [Primary Care Provider] - 7 Days TASHI KIM MD [Staff Physician] - 7 Days ADAM BURCIAGA MD [Staff Physician] - 7 Days Prescriptions: guaiFENesin DM [Guaifenesin Dm Syrup] 20 ml PO Q4H PRN 5 Days #30 oral.liqd PRN Reason: Cough levoFLOXacin [Levaquin] 750 mg PO QDAY #5 tablet methylPREDNISolone [Medrol 4MG DOSEPAK (21 tabs)] 1 dose PO DAILY #1 tab.ds.pk ALBUTEROL NEB's [Proventil 0.083% NEBS] 2.5 mg IH Q4H PRN #30 nebu PRN Reason: Shortness Of Breath
--- NOTE | 2019-10-27 16:09 | Progress Note ---
Assessment and Plan Assessment and plan: Patient is a 79 year old woman with a history of chronic hypoxic respiratory failure on 2 liters home O2, pulmonary hypertension on Opsumit managed by [facility], COPD, pulmonary fibrosis, congestive heart failure and chronic back pain who presented with severe progressive SOB. Patient admits to not taking medications as recommended on occasion. She refused pulmonary rehab/SNF twice. Collateral history garnered from daughter in-law, Dr. Eladia Maher (pt son is i believe). Patient was seen here one week prior to hospitalization and discharged from the ER but failed therapy. Patient stated that she did not felt better since she left. Patient admits to not taking her meds/inhalers as prescribe. Patient lives by herself. She is very weak on her feet and wants rehab but PT evaluated her and determined she had no SNF needs. Acute COPD exacerbation failed outpatient therapy: treat with iv steroids, abx, nebs Hypertension: low salt diet GERD: ppi as needed Osteoarthritis: tylenol prn Pulmonary fibrosis: o2 Primary pulmonary hypertension, known to Dr. Oliveira of [facility]: on Opsumit Acute on chronic hypoxic respiratory failure: try to wean O2 down to 2 liters, Pulm consulted, input noted DVT prophylaxis; Lovenox Disposition: continue inpatient care, home with home care tomorrow. History Interval history: Patient was seen and examined. Follow-up on current diagnosis of COPD, still SOB. No overnight events reported to me. Patient denies any chest pain, nausea/vomiting or severe headaches. Imaging, nursing note, chart, labs and old chart reviewed. Discussed with patient. Hospitalist Physical - Physical exam Narrative exam: Gen: WDWN, NAD, Awake, Alert, Orientated HEENT: NCAT, EOMI, PERRL, OP Clear Neck: supple, no adenopathy, no thyromegaly, no JVD CVS/Heart: RRR, normal S1S2, pulses present bilaterally Chest/Lungs: diminished bs bilateral, Symmetrical chest expansion, good air entry bilaterally GI/Abdomen: soft, NTND, good bowel sounds, no guarding or rebound /Bladder: no suprapubic tenderness, no CVA or paraspinal tenderness Extermity/Skin: no c/c/e, no obvious rash MSK: FROM x 4 Neuro: CN 2-12 grossly intact, no new focal deficits Psych: calm - Constitutional Vitals: Temp Pulse Resp BP Pulse Ox 98.1 F 67 18 134/63 99 10/27/19 13:45 10/27/19 13:45 10/27/19 13:45 10/27/19 13:45 10/27/19 13:45 General appearance: Present: no acute distress Results - Labs CBC & Chem 7: 10/25/19 05:43 10/25/19 05:43 Labs: Laboratory Last Values WBC 5.9 K/mm3 (4.5-11.0) 10/25/19 05:43 RBC 3.62 M/mm3 (3.65-5.03) L 10/25/19 05:43 Hgb 11.5 gm/dl (10.1-14.3) 10/25/19 05:43 Hct 34.3 % (30.3-42.9) 10/25/19 05:43 MCV 95 fl (79-97) 10/25/19 05:43 MCH 32 pg (28-32) 10/25/19 05:43 MCHC 34 % (30-34) 10/25/19 05:43 RDW 14.5 % (13.2-15.2) 10/25/19 05:43 Plt Count 156 K/mm3 (140-440) 10/25/19 05:43 Lymph % (Auto) 14.7 % (13.4-35.0) 10/25/19 05:43 [place] % (Auto) 5.2 % (0.0-7.3) 10/25/19 05:43 Eos % (Auto) 0.0 % (0.0-4.3) 10/25/19 05:43 Baso % (Auto) 0.1 % (0.0-1.8) 10/25/19 05:43 Lymph # 0.9 K/mm3 (1.2-5.4) L 10/25/19 05:43 [place] # 0.3 K/mm3 (0.0-0.8) 10/25/19 05:43 Eos # 0.0 K/mm3 (0.0-0.4) 10/25/19 05:43 Baso # 0.0 K/mm3 (0.0-0.1) 10/25/19 05:43 Seg Neutrophils % 80.0 % (40.0-70.0) H 10/25/19 05:43 Seg Neutrophils # 4.7 K/mm3 (1.8-7.7) 10/25/19 05:43 PT 11.5 Sec. (12.2-14.9) L 10/24/19 13:43 INR 0.84 (0.87-1.13) L 10/24/19 13:43 APTT 27.6 Sec. (24.2-36.6) 10/24/19 13:43 Sodium 139 mmol/L (137-145) 10/25/19 05:43 Potassium 3.7 mmol/L (3.6-5.0) 10/25/19 05:43 Chloride 98.0 mmol/L (98-107) 10/25/19 05:43 Carbon Dioxide 30 mmol/L (22-30) 10/25/19 05:43 Anion Gap 15 mmol/L 10/25/19 05:43 BUN 23 mg/dL (7-17) H 10/25/19 05:43 Creatinine 1.3 mg/dL (0.7-1.2) H 10/25/19 05:43 Estimated GFR 48 ml/min 10/25/19 05:43 BUN/Creatinine Ratio 18 % 10/25/19 05:43 Glucose 148 mg/dL (65-100) H 10/25/19 05:43 POC Glucose 132 (70-105) H 10/25/19 22:15 Calcium 8.7 mg/dL (8.4-10.2) 10/25/19 05:43 Total Bilirubin 0.40 mg/dL (0.1-1.2) 10/25/19 05:43 AST 17 units/L (5-40) 10/25/19 05:43 ALT 7 units/L (7-56) 10/25/19 05:43 Alkaline Phosphatase 45 units/L (35-129) 10/25/19 05:43 NT-Pro-B Natriuret Pep 827.1 pg/mL (0-900) 10/24/19 13:43 Total Protein 6.2 g/dL (6.3-8.2) L 10/25/19 05:43 Albumin 3.6 g/dL (3.9-5) L 10/25/19 05:43 Albumin/Globulin Ratio 1.4 % 10/25/19 05:43 Active Medications - Current Medications Current Medications: Generic Name Dose Route Start Last Admin Trade Name Freq PRN Reason Stop Dose Admin Acetaminophen 650 mg 10/24/19 18:02 10/26/19 01:37 Tylenol PO 650 mg Q4H PRN Administration Pain MILD(1-3)/Fever >100.5/MERRITT Acetaminophen/Butalbital/Caffeine 2 tab 10/25/19 13:03 10/26/19 17:56 Fioricet PO 2 tab Q4H PRN Administration Headache Albuterol 2.5 mg 10/24/19 18:02 Proventil IH Q4H PRN Shortness Of Breath Azithromycin 500 mg 10/25/19 16:00 10/27/19 09:26 Zithromax PO 10/28/19 10:01 500 mg QDAY JAKE Administration Benzonatate 200 mg 10/26/19 16:41 Tessalon Perles PO Q8HR PRN Cough Diazepam 10 mg 10/26/19 17:18 Valium PO QDAY PRN Anxiety Duloxetine HCl 60 mg 10/26/19 17:30 10/27/19 09:25 Cymbalta PO 60 mg QDAY JAKE Administration Enoxaparin Sodium 30 mg 10/26/19 22:00 10/26/19 22:48 Enoxaparin SUB-Q 30 mg QHS JAKE Administration Furosemide 20 mg 10/27/19 10:00 10/27/19 09:25 Lasix PO 20 mg QDAY JAKE Administration Guaifenesin 20 ml 10/25/19 13:03 Guaifenesin Dm Syrup PO Q4H PRN Cough Ceftriaxone Sodium 1 gm in 50 mls @ 100 mls/hr 10/26/19 18:00 10/27/19 09:29 Rocephin/Ns 1 Gm/50 Ml IV 100 mls/hr Q24HR JAKE Administration Protocol Miscellaneous Medication 10 mg 10/26/19 16:45 Macitentan [Opsumit] PO DAILY JAKE Ondansetron HCl 4 mg 10/24/19 18:02 Zofran IV Q8H PRN Nausea And Vomiting Prednisone 40 mg 10/27/19 14:55 Deltasone PO QDAY JAKE Sodium Chloride 10 ml 10/24/19 22:00 12/04/19 09:29 Sodium Chloride Flush Syringe 10 Ml IV 10 ml BID JAKE Administration Sodium Chloride 10 ml 10/24/19 18:02 Sodium Chloride Flush Syringe 10 Ml IV PRN PRN LINE FLUSH Valsartan 80 mg 10/26/19 17:21 10/27/19 09:28 Diovan PO Not Given QDAY JAKE Nutrition/Malnutrition Assess - Dietary Evaluation Nutrition/Malnutrition Findings: Nutrition Notes Start: 10/25/19 13:33 Freq: Status: Active Protocol: Document 10/27/19 11:37 KS (Rec: 10/27/19 11:46 KS [id number]) Co-Sign 10/27/19 11:37 LP Nutrition Notes Initial or Follow up Reassessment Current Diagnosis COPD,Hypertension,Heart Failure,Respiratory Failure Other Pertinent Diagnosis pulminary fibrosis, pneu Current Diet Cardiac, Veg diet Labs/Tests No new labs Pertinent Medications Prednisone Height 5 ft 2 in Weight 63 kg Usual Body Weight 65.45 kg [place] Body Weight (kg) 50.00 BMI 25.4 Subjective/Other Information Pt lethargic/unable to answer questions at time of visit. Observed 50% of breakfast tray plus orange juice consumed this morning. Ensure unopened. Percent of energy/protein needs met: 83%/55% Burn Absent Trauma Absent GI Symptoms None Current % PO Fair (50-74%) Minimum of two criteria Yes Energy Intake (non-severe) <75% Estimated Energy Requirement >7 days Body Fat Depletion Mild depletion (non-severe) #2 Nutrition Diagnosis Inadequate oral intake As Evidenced by Signs and Symptoms Pt consumed 50% of breakfast tray Diagnosis Progress(for reassessment Improved documentation) #1 Nutrition Diagnosis Malnutrition Diagnosis Progress(for reassessment Continues documentation) Is patient on ventilator? No Is Patient Ambulatory and/or Out of Bed No REE-(Bradley-St. Jeor-confined to bed) [phone] Calculation Used for Recommendations Bradley-St Jeor Additional Notes Protein: 76-95g (1.2-1.5 g/kg) Fluid: 1 ml/kcal Nutrition Intervention Change Diet Order: Continue cardiac Add Supplement/Snack (indicate name/kcal Ensure enlive vanilla BID /protein ) Provides kCal: 700 Provides Protein (gm) 40 Goal #1 Meet at least 80% of energy and protein needs Anticipated Discharge Needs: Cardiac diet Follow-Up By: 12/06/19 Additional Comments F/U for PO/ONS intakes
[2019-10-27] MEDS: ENOXAPARIN 30 MG/0.3 ML INJ SUB-Q SCH (21:57)
[2019-10-28] MEDS: DULoxetine 30 MG CAP PO SCH (09:16)
[2019-10-28] MEDS: AZITHROMYCIN 250 MG TAB PO SCH (09:16)
[2019-10-28] MEDS: FUROSEMIDE 20 MG TAB PO SCH (09:18)
[2019-10-28] MEDS: cefTRIAXone/NS 1 GM/50 ML 1 GM/50 ML BAG IV SCH (09:18)
[2019-10-28] MEDS: VALSARTAN 40 MG TAB PO SCH (09:18)
--- NOTE | 2019-10-28 15:13 | Progress Note ---
Assessment and Plan 79 y/o female with Pulm HTN, most likely secondary to COPD and ILD admitted with dypsnea. No new recommendations today, with the exception of weaning FiO2 to off as tolerated, unless patient already on Home O2. No objection to discharge today. Follow up with Dr. Kaylynn Romero. 1. Per chart [facility] manages pulmonary hypertension. Sure that opsumit is not on formulary so will defer to them. 2. In regards to ILD and COPD, family unsure of patient regimen and she follows a physician that is not at this hospital. If she truly has IPF, then steroids show no benefit in this disease state. Suggest rapid taper from oral dosing started by Dr. Wilson. 3. Could consider some long acting nebulizer treatments if family feels patient is not taking her medications as prescribed 4. Continue supplemental O2 5. Continue diuretic therapy, may need to increase to 40 daily to achieve net negative state. Also good for pulmonary hypertension but will again defer to cards as they have been managing this as an outpatient. Thank you for this consult. Will continue to follow with you. Subjective Date of service: 10/28/19 Interval history: Patient being discharged today. Pulm zaldivar stable. Objective Vital Signs - 12hr 10/28/19 10/28/19 10/28/19 07:23 10:00 12:00 Temperature 97.8 F Pulse Rate 53 L 62 Pulse Rate [ 62 Right Brachial] Respiratory 19 18 Rate Blood Pressure 137/54 O2 Sat by Pulse 98 98 Oximetry Constitutional: no acute distress, alert Eyes: non-icteric ENT: oropharynx moist Effort: normal Ascultation: Bilateral: rales (dry at the bases bilaterally ) Percussion: Bilateral: not dull Cardiovascular: regular rate and rhythm Gastrointestinal: soft CBC and BMP: 10/25/19 05:43 10/25/19 05:43 ABG, PT/INR, D-dimer: PT/INR, D-dimer PT 11.5 Sec. (12.2-14.9) L 10/24/19 13:43 INR 0.84 (0.87-1.13) L 10/24/19 13:43 Abnormal lab findings: Abnormal Labs 10/24/19 10/24/19 10/24/19 13:43 13:43 13:43 RBC [place] % (Auto) 8.8 H Lymph # 1.0 L Seg Neutrophils % 70.4 H PT 11.5 L INR 0.84 L BUN 19 H Creatinine Glucose 108 H POC Glucose Total Protein Albumin 10/25/19 10/25/19 10/25/19 05:43 05:43 07:34 RBC 3.62 L [place] % (Auto) Lymph # 0.9 L Seg Neutrophils % 80.0 H PT INR BUN 23 H Creatinine 1.3 H Glucose 148 H POC Glucose 142 H Total Protein 6.2 L Albumin 3.6 L 10/25/19 10/25/19 11:19 22:15 RBC [place] % (Auto) Lymph # Seg Neutrophils % PT INR BUN Creatinine Glucose POC Glucose 157 H 132 H Total Protein Albumin
[2019-10-28 18:41] VITALS: BP 129/66
== END 2019-10-28 16:05 | disposition home or self-care (01) | DRG 291 ==
LOC: ED 13:01 → 2B-ACE 17:59 → OBSVTOIN 10-26 10:22
PROVIDERS: ADMIT Internal Medicine; ATTEND Internal Medicine
DX: I11.0 Hypertensive heart disease with heart failure (principal); J96.21 Acute and chronic respiratory failure with hypoxia; J44.0 Chronic obstructive pulmonary disease with (acute) lower respiratory infection; J44.1 Chronic obstructive pulmonary disease with (acute) exacerbation; I50.33 Acute on chronic diastolic (congestive) heart failure; J84.10 Pulmonary fibrosis, unspecified; G89.29 Other chronic pain; Z60.2 Problems related to living alone; K21.9 Gastro-esophageal reflux disease without esophagitis; M19.90 Unspecified osteoarthritis, unspecified site; F41.9 Anxiety disorder, unspecified; I27.20 Pulmonary hypertension, unspecified; M54.9 Dorsalgia, unspecified; Z88.5 Allergy status to narcotic agent; Z79.51 Long term (current) use of inhaled steroids; Z79.899 Other long term (current) drug therapy; Z90.711 Acquired absence of uterus with remaining cervical stump; Z99.81 Dependence on supplemental oxygen; Z82.49 Family history of ischemic heart disease and other diseases of the circulatory system; Z91.19 Patient's noncompliance with other medical treatment and regimen; Z71.89 Other specified counseling
CPT/HCPCS: 36415; 71046; 80053; 82962; 83880; 85025; 85610; 85730; 87116; 93005; 93010; 94640; 94644; 94760; G0378; J0456; J0696; J1650; J1940; J2920; J2930; J7050; J7512

== ENCOUNTER 2021-03-13 12:23 | Outpatient (CLI) | payer MEDICARE, OTHER ==
--- NOTE | 2021-03-13 14:49 | Cat Scan Report ---
CT chest wo con INDICATION / CLINICAL INFORMATION: MAIN. TECHNIQUE: All CT scans at this location are performed using CT dose reduction for ALARA by means of automated e xposure control. COMPARISON: None available. FINDINGS: Diffuse interstitial fibrosis is seen in the right lung with chronic changes in the left lung as well . Ectasia seen in the thoracic aorta. No enlarged mediastinal or hilar lymph nodes are present. The a drenal glands are normal. No significant skeletal abnormality is seen. IMPRESSION: 1. Diffuse interstitial fibrosis in the right lung with chronic changes in the left lung as well 2. Ectasia in the thoracic aorta Signer Name: Lenin Corral MD FACR Signed: 03/13/2021 2:44 PM Workstation Name: [id number]
== END 2021-03-13 12:24 | disposition home or self-care (01) ==
LOC: CT 12:23
PROVIDERS: ATTEND Internal Medicine Pulmonary Disease
DX: I77.810 Thoracic aortic ectasia (principal); J84.10 Pulmonary fibrosis, unspecified; J44.9 Chronic obstructive pulmonary disease, unspecified; R06.00 Dyspnea, unspecified
CPT/HCPCS: 71250